=== PATIENT | female | born 1975 | race African-American/Black ===

== ENCOUNTER 2022-01-13 23:53 | Observation (INO) | payer OTHER, SELFPAY ==
--- NOTE | 2022-01-13 23:48 | ECG_ITS ---
APPROVED REPORT Exam: Resting ECG HR:86 bpm ECG Measurements Heart Rate 86 AXES UT 167 P 70 QRSd 89 QRS 27 QT 346 T 59 QTc 390 Conclusion SINUS RHYTHM NORMAL ECG UNCONFIRMED REPORT Electronically signed by : Jared Hahn MD 01/14/2022 21:23:47
[2022-01-14 00:03] VITALS: BP 167/87; PULSE 82; RESP 16; TEMP 36.6; O2SAT 99; BMI 28.3
[2022-01-14 00:08] LABS: Coronavirus 19, PCR Not Detected (NotDetected); Influenza A, PCR Not Detected (NotDetected); Influenza B, PCR Not Detected (NotDetected)
--- NOTE | 2022-01-14 00:11 | XR_ITS ---
PROCEDURE INFORMATION: Exam: XR Chest Exam date and time: 01/14/2022 12:10 AM Age: 46 years old Clinical indication: Sternal or substernal pain; Additional info: Chest pain for a few weeks, worsening tonight TECHNIQUE: Imaging protocol: Radiologic exam of the chest. Views: 2 views. COMPARISON: No relevant prior studies available. FINDINGS: Lungs: Unremarkable. No consolidation. Pleural spaces: Unremarkable. No pleural effusion. No pneumothorax. Heart/Mediastinum: Unremarkable. No cardiomegaly. Bones/joints: Unremarkable. IMPRESSION: No acute findings.
[2022-01-14 00:12] LABS: Microscopic, Urine URINE MICROSCOPIC (MICROSCOPIC)
[2022-01-14 00:16] LABS: Appearance,Urine CLEAR (Clear); Bilirubin,Urine Negative (Negative); Blood, Urine Negative (Negative); Color,Urine YELLOW (Yellow); Glucose,Urine (UA) Negative (Negative); Ketones,Urine Negative (Negative); Leukocyte Esterase,Urine Negative (Negative); Nitrate,Urine Negative (Negative); Protein,Urine Negative (Negative); Specific Gravity, Urine <= 1.005 (1.005-1.030); Urobilinogen,Urine 0.2 EU/dl (0.2)
[2022-01-14 00:27] LABS: Bacteria,Urine Trace /lpf
[2022-01-14 00:28] LABS: Basophils % 0.3 % (0.1-2.0); Eosinophils # 0.1 K/mm3 (0.0-0.4); Eosinophils % 1.6 % (0.1-12.0); Hematocrit 37.6 % (37.0-47.0); Hemoglobin 11.4 g/dL (12.2-16.2); Lymphocytes # 1.8 K/mm3 (0.7-4.5); Lymphocytes % 31.6 % (10-50); Mean Corpuscular HGB Conc 30.2 g/dL (31.8-35.4); Mean Corpuscular Hemoglobin 26.4 pg (27.0-31.2); Mean Corpuscular Volume 87.4 fl (81-99); Mean Platelet Volume 8.6 fl (7.4-10.4); Monocytes # 0.4 K/mm3 (0.1-1.0); Monocytes % 6.5 % (1.7-9.3); Neutrophils # 3.4 K/mm3 (1.8-7.8); Platelet Count 221 K/mm3 (142-424); Red Blood Count 4.31 M/mm3 (4.20-5.40); Red Cell Distribution Width 14.2 % (11.5-17.5); White Blood Count 5.7 K/mm3 (4.8-10.8)
[2022-01-14 00:32] LABS: Amylase 113 U/L (30-110); Anion Gap 10.6 mEq/L (5-15); Blood Urea Nitrogen 7 mg/dl (7-17); Calcium 9.1 mg/dl (8.4-10.2); Carbon Dioxide 28 mmol/L (22.0-30.0); Chloride 101 mmol/L (98-107); Creatinine Clearance Estimated 121 mL/min (50-200); Estimated Glomerular Filt Rate 90 ml/min (>60); GFR (African American) 109 ML/MIN (>60); Glucose 101 mg/dl (74-100); Lipase 90 U/L (23-300); Magnesium 1.7 mg/dl (1.6-2.3); Potassium 3.6 mmoL/L (3.5-5.1); Sodium 136 mmol/L (136-145)
[2022-01-14 00:37] LABS: C-Reactive Protein 22.7 mg/L (0-4)
[2022-01-14 00:51] LABS: Procalcitonin 0.045 ng/mL (0.0-2.0)
[2022-01-14 00:59] LABS: Troponin I < 0.01 ng/ml (0.00-0.034)
--- NOTE | 2022-01-14 00:59 | HMH.EDCP ---
ED Disposition Clinical Impression: Unstable angina pectoris Disposition: Admitted as Observation Condition on Discharge: Fair - Critical Care Critical Care Time: No Attestation: On 01/13/22, the high probability of a clinically significant, sudden or life threatening deterioration of the following system(s) required my full and direct attention, intervention and personal management. The time I documented below is in addition to time spent performing reported procedures but includes the following listed in this critical care notation. Medical Decision Making - Medical Records Medical records reviewed: Yes: I reviewed the patient's medical records. - Ganesh Inquiry Pt receiving controlled substance: No Vital Signs: 01/14/22 00:03 01/14/22 02:04 Temperature 98 F 98 F Temperature Source Oral Oral Pulse Rate 78 Pulse Rate [Apical] 82 Respiratory Rate 16 16 Blood Pressure 155/70 H Blood Pressure [Right Arm] 167/87 H Blood Pressure Mean [Right Arm] 113 Blood Pressure Source Automatic Cuff Blood Pressure Source [Right Arm] Automatic Cuff Blood Pressure Position Sitting Blood Pressure Position [Right Arm] Sitting 02 Sat by Pulse Oximetry 99 Oxygen Delivery Method Room Air Room Air - Lab Data Lab results reviewed: Yes: I reviewed the patient's lab results. Lab Results 01/14/22 00:01: WBC 5.7, RBC 4.31, Hgb 11.4 L, Hct 37.6, MCV 87.4, MCH 26.4 L, MCHC 30.2 L, RDW 14.2, Plt Count 221, MPV 8.6, Neut % (Auto) 60.0, Lymph % (Auto) 31.6, [place] % (Auto) 6.5, Eos % (Auto) 1.6, Baso % (Auto) 0.3, Neut # (Auto) 3.4, Lymph # (Auto) 1.8, [place] # (Auto) 0.4, Eos # (Auto) 0.1, Baso # (Auto) 0.0, ESR 49 H 01/14/22 00:01: Sodium 136, Potassium 3.6, Chloride 101, Carbon Dioxide 28, Anion Gap 10.6, BUN 7, Creatinine 0.70, Estimated Creat Clear 121, Estimated GFR 90, Est GFR ( Amer) 109, Glucose 101 H, Calcium 9.1, Magnesium 1.7, Troponin I < 0.01, C-Reactive Protein 22.7 H, Amylase 113 H, Lipase 90, Procalcitonin 0.045 01/14/22 00:03: SARS-CoV-2 (PCR) Not detected, Influenza A Untype (PCR) Not detected, Influenza Type B (PCR) Not detected 01/14/22 00:08: Urine Color Yellow, Urine Appearance Clear, Urine pH 6.0, Ur Specific [place] <= 1.005, Urine Protein Negative, Urine Glucose (UA) Negative, Urine Ketones Negative, Urine Blood Negative, Urine Nitrate Negative, Urine Bilirubin Negative, Urine Urobilinogen 0.2, Ur Leukocyte Esterase Negative, Urine RBC None, Urine WBC None, Ur Squamous Epith Cells 3-5, Urine Bacteria Trace Result diagrams: 01/14/22 00:01 01/14/22 00:01 Orders (Tests/Meds): ED MEDICATIONS Generic Name Dose Route Start Last Admin Trade Name Fresheila PRN Reason Stop Dose Admin Sodium Chloride 1,000 mls @ 999 mls/hr 01/14/22 00:15 01/14/22 00:20 Sod Chlor 0.9% 1000ml Bag IV 01/14/22 01:15 999 mls/hr .Q1H1M MISTI Administration Sodium Chloride 8 ml 01/14/22 00:14 Sodium Chloride 0.9% 10ml Vial IV 02/13/22 00:13 NEEDED PRN dilute pepcid Discontinued Medications Generic Name Dose Route Start Last Admin Trade Name Fresheila PRN Reason Stop Dose Admin Aspirin 324 mg 01/14/22 00:11 01/14/22 00:20 Aspirin 81mg Chewable Tablet PO 01/14/22 00:12 324 mg ONCE ONE Administration Famotidine 20 mg 01/14/22 00:11 01/14/22 00:20 Famotidine 20mg/2ml Vial IV 01/14/22 00:12 20 mg ONCE ONE Administration Metoclopramide HCl 10 mg 01/14/22 00:14 01/14/22 00:22 Metoclopramide Hcl 10mg/2ml Vial IVP 01/14/22 00:15 10 mg ONCE ONE Administration Nitroglycerin 1 gm 01/14/22 01:22 01/14/22 01:24 Nitroglycerin 1 Gm Ointment TD 01/14/22 01:23 1 gm ONCE ONE Administration Ondansetron HCl 4 mg 01/14/22 00:11 01/14/22 00:20 Ondansetron 4mg/2ml Vial IV 01/14/22 00:12 4 mg ONCE ONE Administration ORDERS Category Date Time Status Troponin I Q3H Lab 01/14/22 03:15 Ordered Troponin I Q3H Lab 01/14/22 06:15 Ordered - Radiology Data
--- NOTE | 2022-01-14 01:15 | PC.NURSE ---
PATIENT ADMITTED OBSERVATION TO [address] ERICK[address] LIU WITH DX OF CHEST PAIN.
[2022-01-14 01:23] LABS: Erythrocyte Sedimentation Rate 49 mm/hr (0-20)
[2022-01-14 02:04] VITALS: BP 155/70; PULSE 78; RESP 16; TEMP 36.6; O2SAT 99
[2022-01-14 02:30] VITALS: BP 142/73; PULSE 84; RESP 18; TEMP 36.8; O2SAT 98
[2022-01-14 04:00] VITALS: BP 135/66; PULSE 74; RESP 18; TEMP 36.7; O2SAT 99
[2022-01-14 04:44] LABS: Troponin I < 0.01 ng/ml (0.00-0.034)
--- NOTE | 2022-01-14 07:05 | PC.NURSE ---
REPORT RECEIVED FROM Narciso HAQUE RN
--- NOTE | 2022-01-14 07:46 | P.CONPHA_ITS ---
[facility] Pharmacy VTE Monitoring - Patient Demographics Admission date: 01/14/22 Report Date: 01/14/22 Time: 07:46 Allergies/Adverse Reactions: Patient Allergies Penicillins Allergy (Verified 01/14/22 00:10) Height: 1.65 m Weight: 77.111 kg Patient Problems: Current Active Problems Unstable angina pectoris (Acute) - VTE Risk Labs: VTE Related Lab Results Hgb 11.4 g/dL (12.2-16.2) L 01/14/22 00:01 Hct 37.6 % (37.0-47.0) 01/14/22 00:01 Plt Count 221 K/mm3 (142-424) 01/14/22 00:01 BUN 7 mg/dl (7-17) 01/14/22 00:01 Creatinine 0.70 mg/dl (0.52-1.04) 01/14/22 00:01 Estimated Creat Clear 121 mL/min (50-200) 01/14/22 00:01 VTE Score: 3 VTE Risk Level: Low Risk - Prophylaxis VTE Prophylaxis Ordered?: Yes Types of VTE Prophylaxis: TEDS Knee High Location of Applied Device: Bilateral Lower Extremeties
[2022-01-14 07:52] LABS: Basophils % 0.6 % (0.1-2.0); Eosinophils # 0.1 K/mm3 (0.0-0.4); Eosinophils % 1.7 % (0.1-12.0); Hematocrit 34.5 % (37.0-47.0); Hemoglobin 10.5 g/dL (12.2-16.2); Lymphocytes # 1.2 K/mm3 (0.7-4.5); Mean Corpuscular HGB Conc 30.5 g/dL (31.8-35.4); Mean Corpuscular Hemoglobin 27.1 pg (27.0-31.2); Mean Corpuscular Volume 88.8 fl (81-99); Monocytes # 0.3 K/mm3 (0.1-1.0); Neutrophils # 2.3 K/mm3 (1.8-7.8); Neutrophils % 59.6 % (37.0-80.0); Platelet Count 189 K/mm3 (142-424); Red Blood Count 3.89 M/mm3 (4.20-5.40); Red Cell Distribution Width 14.4 % (11.5-17.5); White Blood Count 3.9 K/mm3 (4.8-10.8)
[2022-01-14 08:02] LABS: Chloride 106 mmol/L (98-107); Potassium 3.6 mmoL/L (3.5-5.1)
[2022-01-14 08:05] LABS: Carbon Dioxide 29 mmol/L (22.0-30.0); Cholesterol 108 mg/dl (140-200); Phosphorous 3.3 mg/dl (2.5-4.5); Triglycerides 46 mg/dl (30-150); VLDL Cholesterol 9 mg/dL (0-40)
[2022-01-14 08:06] LABS: Chol/HDL Ratio 3.2 (1-3.5); HDL Cholesterol 34 mg/dl (40-60); Magnesium 1.8 mg/dl (1.6-2.3)
[2022-01-14 08:10] LABS: Blood Urea Nitrogen 8 mg/dl (7-17); Creatinine Clearance Estimated 121 mL/min (50-200); Estimated Glomerular Filt Rate 90 ml/min (>60); GFR (African American) 109 ML/MIN (>60)
[2022-01-14 08:24] LABS: Calcium 7.8 mg/dl (8.4-10.2); Glucose 96 mg/dl (74-100)
[2022-01-14 08:25] LABS: Anion Gap 6.6 mEq/L (5-15); Sodium 138 mmol/L (136-145)
[2022-01-14 08:51] LABS: Troponin I < 0.01 ng/ml (0.00-0.034)
--- NOTE | 2022-01-14 08:53 | PC.NURSE ---
DR. Gibbs at bedside.
[2022-01-14 09:00] VITALS: BP 120/68; PULSE 73; RESP 18; TEMP 36.7; O2SAT 98
--- NOTE | 2022-01-14 09:00 | PC.NURSE ---
ASSESSMENT COMPLETED. NO CURRENT NEEDS VOICED. LUNGS CTA AND BOWELS ACTIVE X4. REPORTS NO CHEST PAIN AT THIS TIME. PULSES 2+ AND NO EDEMA. SKIN ASSESSMENT COMPLETED- NO OPEN AREAS. IV INFUSING. NO NEEDS VOICED.
[2022-01-14 12:00] VITALS: BP 122/57; PULSE 66; RESP 18; O2SAT 97
--- NOTE | 2022-01-14 13:57 | HMH.CNCARD ---
History of Present Illness Consult date: 01/14/22 Requesting physician: Paul Gibbs Consult reason: chest pain Chief complaint: burning in chest History of present illness: This is a 46-year-old -[place] female who presented to the emergency department with complaints of burning in her chest. The patient states that this started yesterday morning after eating breakfast. She states that she ate some dry toast and then felt as if the food got stuck in the central aspect of her chest. She states that this was burning and felt like acid reflux. She states that she has had some issues with acid reflux in the past and she just felt like her omeprazole was no longer working for her but she had never experienced this sensation of something feeling stuck in her chest. This was a moderate in intensity. She states that this did not radiate. She states that nothing really helped with her chest pain. The patient states that she called her primary care provider and she was not able to be evaluated until . They recommended she go to the emergency department if her symptoms worsened. The chest pain from yesterday morning persisted through the evening so the patient decided to come into the emergency department. She states that after she was given multiple medications in the emergency department the chest pain finally resolved slowly over time late last night. The patient denies any history of smoking. She denies a family history of coronary artery disease and she even called her grandmother to confirm this today. She denies any shortness of breath or nausea and vomiting associated with the chest pain. She denies any diaphoresis. She denies any fever, chills, nausea, vomiting, diarrhea, PND or orthopnea. [facility] History I have reviewed the patient's past medical history: Yes Medical History: Reports:: Gastroesophageal Reflux Disease(GERD) Denies:: Diabetes Mellitus Type 1, Diabetes Mellitus Type 2 *Have you ever received a pneumonia vaccine?: Yes *Have you received a flu vaccine this season?: Yes Comment:: Lupus Other Surgeries: Yes: Cardiac Catheterization, Colonoscopy, Hysterectomy-Partial, Tubal Ligation - *Social History Last grade of school completed: High school graduate Smoking Status: Never smoker Alcohol Intake: never *Occupational Status:: employed Household Members: children *Travel in the last 8 weeks: None Family Hx:: No significant family history Meds Home Medications Medication Instructions Recorded Confirmed Type Belimumab [Benlysta] 200 mg SQ WEEKLY 01/14/22 01/14/22 History Desonide 0 gm TP DAILY 01/14/22 01/14/22 History Duloxetine HCl [Cymbalta] 60 mg PO DAILY 01/14/22 01/14/22 History Fluocinonide [Lidex 0.05% cream 0 gm TD BID 01/14/22 01/14/22 History 15gm tube] Gabapentin [Gabapentin 100mg Cap] 100 mg PO TID 01/14/22 01/14/22 History Hydroxychloroquine Sulfate 200 mg PO BID 01/14/22 01/14/22 History [Plaquenil 200mg tablet] Lubiprostone 24 mcg PO BID 01/14/22 01/14/22 History Omeprazole [Omeprazole 20mg Tab] 20 mg PO DAILY 01/14/22 01/14/22 History Oxybutynin Chloride [Oxybutynin 10 mg PO DAILY 01/14/22 01/14/22 History Chloride ER] Zolpidem Tartrate [Ambien 5mg 5 mg PO HS 01/14/22 01/14/22 History tablet] Allergies Allergy/AdvReac Type Severity Reaction Status Date / Time Penicillins Allergy Verified 01/14/22 00:10 Exam Vital signs and Labs for Last 24 Hours: Temp Pulse Resp BP Pulse Ox 98.1 F 66 18 122/57 L 97 01/14/22 09:00 01/14/22 12:00 01/14/22 12:00 01/14/22 12:00 01/14/22 12:00 Laboratory Results - last 24 hr 01/14/22 00:01: WBC 5.7, RBC 4.31, Hgb 11.4 L, Hct 37.6, MCV 87.4, MCH 26.4 L, MCHC 30.2 L, RDW 14.2, Plt Count 221, MPV 8.6, Neut % (Auto) 60.0, Lymph % (Auto) 31.6, [place] % (Auto) 6.5, Eos % (Auto) 1.6, Baso % (Auto) 0.3, Neut # (Auto) 3.4, Lymph # (Auto) 1.8, [place] # (Auto) 0.4, Eos # (Auto) 0.1, Baso # (Auto) 0.0, ESR 49 H 01/14/22 0
--- NOTE | 2022-01-14 14:33 | HMH.HPDC ---
General - General Admission date:: 01/14/22 Discharge date: 01/14/22 *Admission Date: 01/14/22 *Chief complaint: chest pain *History of present illness: this patient presented to [facility] ed last pm with onset of a different kind of chest pain - pt was seen and admitted for cardiac eval and treatment -pt states that she has been having substernal chest pain for the prior two weeks that is intermittent in nature and appears to be worse after she eats. Pt states that she ate breakfast this morning and began to have chest pain at roughly 1230 this afternoon. Denies any cp radiation, nausea or vomiting progressive chest tightness over the last 2 days and will be admitted [facility] History I have reviewed the patient's past medical history: Yes Medical History: Reports:: Gastroesophageal Reflux Disease(GERD) Denies:: Diabetes Mellitus Type 1, Diabetes Mellitus Type 2 *Have you ever received a pneumonia vaccine?: Yes *Have you received a flu vaccine this season?: Yes Other Surgeries: Yes: Cardiac Catheterization, Colonoscopy, Hysterectomy-Partial, Tubal Ligation - *Social History Last grade of school completed: High school graduate Smoking Status: Never smoker Alcohol Intake: never *Occupational Status:: employed Household Members: children *Travel in the last 8 weeks: None Family Hx:: No significant family history Review of Systems - Review of Systems Review of systems:: pertinent systems reviewed and negative unless documented below - Constitutional Denies lack of energy - Eyes Denies change in vision - ENT Denies change in voice - *Cardiovascular Reports chest pain, Reports chest pain at rest - *Respiratory Denies cough - *Gastrointestinal Denies abdominal pain - *Genitourinary Denies difficulty urinating - *Musculoskeletal Denies joint pain - Integumentary/Breasts Denies rash - *Neurologic Denies abnormal hearing, Denies seizure-like activity - Psychiatric Denies anxiety - Endocrine Denies flushing, Denies heat intolerance Exam Vital signs and Labs for Last 24 Hours: Temp Pulse Resp BP Pulse Ox 98.1 F 66 18 122/57 L 97 01/14/22 09:00 01/14/22 12:00 01/14/22 12:00 01/14/22 12:00 01/14/22 12:00 Laboratory Results - last 24 hr 01/14/22 00:01: WBC 5.7, RBC 4.31, Hgb 11.4 L, Hct 37.6, MCV 87.4, MCH 26.4 L, MCHC 30.2 L, RDW 14.2, Plt Count 221, MPV 8.6, Neut % (Auto) 60.0, Lymph % (Auto) 31.6, [place] % (Auto) 6.5, Eos % (Auto) 1.6, Baso % (Auto) 0.3, Neut # (Auto) 3.4, Lymph # (Auto) 1.8, [place] # (Auto) 0.4, Eos # (Auto) 0.1, Baso # (Auto) 0.0, ESR 49 H 01/14/22 00:01: Sodium 136, Potassium 3.6, Chloride 101, Carbon Dioxide 28, Anion Gap 10.6, BUN 7, Creatinine 0.70, Estimated Creat Clear 121, Estimated GFR 90, Est GFR ( Amer) 109, Glucose 101 H, Calcium 9.1, Magnesium 1.7, Troponin I < 0.01, C-Reactive Protein 22.7 H, Amylase 113 H, Lipase 90, Procalcitonin 0.045 01/14/22 00:03: SARS-CoV-2 (PCR) Not detected, Influenza A Untype (PCR) Not detected, Influenza Type B (PCR) Not detected 01/14/22 00:08: Urine Color Yellow, Urine Appearance Clear, Urine pH 6.0, Ur Specific [place] <= 1.005, Urine Protein Negative, Urine Glucose (UA) Negative, Urine Ketones Negative, Urine Blood Negative, Urine Nitrate Negative, Urine Bilirubin Negative, Urine Urobilinogen 0.2, Ur Leukocyte Esterase Negative, Urine RBC None, Urine WBC None, Ur Squamous Epith Cells 3-5, Urine Bacteria Trace 01/14/22 03:20: Troponin I < 0.01 01/14/22 07:35: WBC 3.9 L D, RBC 3.89 L, Hgb 10.5 L, Hct 34.5 L, MCV 88.8, MCH 27.1, MCHC 30.5 L, RDW 14.4, Plt Count 189, MPV 9.0, Neut % (Auto) 59.6, Lymph % (Auto) 30.0, [place] % (Auto) 8.0, Eos % (Auto) 1.7, Baso % (Auto) 0.6, Neut # (Auto) 2.3, Lymph # (Auto) 1.2, [place] # (Auto) 0.3, Eos # (Auto) 0.1, Baso # (Auto) 0.0 01/14/22 07:35: Sodium 138, Potassium 3.6, Chloride 106, Carbon Dioxide 29, Anion Gap 6.6, BUN 8, Creatinine 0.70, Estimated Creat Clear 121, Estimated GFR 90, Est GFR ( Amer
[2022-01-15 13:48] LABS: Direct LDL Cholesterol 56 mg/dL (100-129)
--- NOTE | 2022-01-15 14:20 | CARE MANAGER ---
Contacted patient related discharge from the hospital. States she still has some pressure, but has stress test on Thursday. Denies questions or concerns. NAKITA Rutledge
== END 2022-01-14 15:45 | disposition home or self-care (01) ==
LOC: ER 01-14 00:11 → OB 01-14 02:32
PROVIDERS: Admitting Provider Emergency Medicine; Emergency Provider Emergency Medicine; PCP Nurse Practitioner Family; Visit Provider Family Medicine
DX: R07.9 Chest pain, unspecified (principal); K21.9 Gastro-esophageal reflux disease without esophagitis; M32.9 Systemic lupus erythematosus, unspecified
CPT/HCPCS: 36415; 71046; 80048; 80061; 81001; 82150; 83690; 83735; 84100; 84145; 84484; 85025; 85651; 86140; 93005; 93306; 99285; C9803; G0378; J2405; U0003; U0005

== ENCOUNTER → 2022-01-17 06:14 | Outpatient (CLI) | payer OTHER, SELFPAY | PROVIDERS: PCP Nurse Practitioner Family; Visit Provider Nurse Practitioner Family | DX: R07.9 Chest pain, unspecified (principal) | CPT/HCPCS: 78452; 93017; A9502 ==

== ENCOUNTER 2022-01-28 10:35 | Inpatient (IN) | payer OTHER, SELFPAY ==
[2022-01-28] VITALS (22 sets, daily range): BP systolic 94–186; BP diastolic 49–93; PULSE 93–112; RESP 16–24; TEMP 36.7–37; O2SAT 90–100; BMI 28.8; BMI 32.1
--- NOTE | 2022-01-28 | IR_ITS ---
APPROVED REPORT Patient Location: [facility] Helper: CECILIO Marcum RT (R) PROCEDURES Pericardiocentesis Placement of pericardial pigtail catheter into the pericardial space INDICATION Cardiac tamponade, Pericardial effusion Informed consent was obtained prior to the procedure. COMPLICATIONS None Estimated Blood Loss: Less than 10 mls TECHNIQUE Patient presented to the cardiology clinic with acute dyspnea where an EKG demonstrated ST elevation in all leads combined with electrical alternans suggesting both pericarditis with large pericardial effusion. Because of patient's dyspnea she was taken immediately to the emergency department where a bedside echocardiogram demonstrated both systolic and diastolic RV collapse. Patient was brought emergently to the [facility] where she was sedated in the thoracic abdominal area sterilely prepped. 1% lidocaine was used to anesthetize the subxiphoid area and a large needle was used to cannulate the pericardial space. A wire was then placed into the pericardial space and the tract was dilated with a dilator sheath. The pigtail catheter was then advanced and confirmed under fluoroscopic guidance. 750 cc of serosanguineous fluid was manually removed. At the end of the procedure the pigtail catheter was sewn into place and attached to a gravity fed bag for pericardial drainage. Patient was taken to the postop holding area in stable condition IMPRESSION Cardiac tamponade secondary to the large pericardial effusion Successful therapeutic pericardiocentesis alleviating the cardiac tamponade Successful placement of pigtail catheter into the pericardial space PLAN 1. Send pericardial fluid for cytology and chemistry evaluation 2. Methylprednisolone 250 mg IV every 6 x3 days 3. Echocardiogram tomorrow morning 4. Continue with supportive care while maintaining the pericardial pigtail for at least the next 48 hours Electronically signed by : Chandrakant Dewitt MD 01/28/2022 13:18:01
--- NOTE | 2022-01-28 | CA_ITS ---
APPROVED REPORT EXAM: Comprehensive 2D, Doppler, and color-flow Echocardiogram Escort Car Driver: Shannon Adams RT(R) Ht: 5 ft 5 in Wt: 174lbs BSA: 1.86 BP: 106/75 mmHg Indications: CP, LUPUS, Pericardial effusion Echo Enhancing Agent Comments: 750cc evacuated from pericardial space 2D Dimensions IVSd 0.80 cm LVEF (Visual) 51.20 % PWd 0.84 cm LVDd 3.65 cm LVDs 2.72 cm Left Ventricle Left atrium is normal size, left ventricle normal size, estimated ejection fraction 55 to 60% with no regional wall motion abnormality. Right Ventricle Right atrium is normal size, right ventricle has intermittent buckling due to large pericardial effusion suggestive of tamponade. Aortic Valve Aortic valve is minimally thickened and fibrosed there is no aortic stenosis or aortic insufficiency. Mitral Valve Mitral valve is grossly normal there is trace mitral regurgitation. Tricuspid Valve Tricuspid valve grossly normal, there is trace tricuspid regurgitation, tricuspid regurgitation jet velocity is inadequate for calculation of the right ventricular pressure. Pulmonic Valve Pulmonic valve is poorly visualized. Great Vessels Aortic root is normal size. Inferior vena cava is dilated without significant inspiratory collapse. Pericardium There is large circumferential pericardial effusion noted with Doppler evidence of tamponade physiology. Subsequently patient underwent pericardial effusion drainage which subsequently shows normal right ventricular size and function, at the end of the echocardiogram there is small pericardial effusion. Conclusion 1. Large pericardial effusion with tamponade physiology, subsequently patient underwent pericardiocentesis with resolution of tamponade physiology by echocardiogram, at the end of the procedure with a small pericardial effusion left. 2. Normal left ventricular size with preserved left ventricular systolic function. 3. No significant valvular disease identified. Electronically signed by : Jefferson Le MD 01/28/2022 19:25:02
--- NOTE | 2022-01-28 10:45 | PC.NURSE ---
aaron sharif called to come back and review 2nd ekg, she is calling dr ortiz
--- NOTE | 2022-01-28 10:47 | PC.NURSE ---
V/O PER CHERELLE SALAZAR NP VIA DR. ANDERSON. STAT ECHO NOW, TO MANAGING [facility]OK[facility] UNLESS PT HAS PERICARDITIS
--- NOTE | 2022-01-28 10:47 | PC.NURSE ---
Ольга called for stat echo
--- NOTE | 2022-01-28 10:48 | PC.NURSE ---
Addendum entered by Lorraine Champion, EMT 01/28/22 10:48: echo called at 1032 Original Note: aaron sharif advised to get a stst evcho on pt
--- NOTE | 2022-01-28 10:49 | PC.NURSE ---
PT ON 3L/NC ROOM AIR SAT 90%, NOW 98%
--- NOTE | 2022-01-28 11:03 | PC.NURSE ---
ORDERS RECEIVED TO SIGN CONSENT AND TAKE PT TO SOFTWARE VALIDATION TECHNICIAN
--- NOTE | 2022-01-28 11:04 | ECG_ITS ---
APPROVED REPORT Exam: Resting ECG HR:111 bpm ECG Measurements Heart Rate 111 AXES ND 148 P 2 QRSd 76 QRS 17 QT 332 T 19 QTc 397 Conclusion SINUS TACHYCARDIA MARKED ST ELEVATION, CONSIDER INFERIOR INJURY [MARKED ST ELEVATION W/O NORMALLY INFLECTED T-WAVE IN II/aVF] MARKED ST ELEVATION, CONSIDER ANTEROLATERAL INJURY [MARKED ST ELEVATION W/O NORMALLY INFLECTED T-WAVE IN V3-V6] ACUTE MD UNCONFIRMED REPORT Electronically signed by : Jared Hahn MD 01/28/2022 21:07:59
--- NOTE | 2022-01-28 11:04 | PC.NURSE ---
7884 ED MD AT BEDSIDE TO HEART
--- NOTE | 2022-01-28 11:04 | PC.NURSE ---
1100 ECHO AT BEDSIDE
--- NOTE | 2022-01-28 11:04 | PC.NURSE ---
manager labor relations called advised to get pt consent and send to microbiology lab manager
--- NOTE | 2022-01-28 11:04 | PC.NURSE ---
1100 DR. ANDERSON NOTIFIED OF FINDINGS
--- NOTE | 2022-01-28 11:07 | PC.NURSE ---
CONSENT SIGNED AT THIS TIME
--- NOTE | 2022-01-28 11:08 | PC.NURSE ---
UPON ARRIVAL TO ER PT PLACED ON MONITOR WITH ELEVATION IN LEAD 3 , EKG DONE AND GIVEN TO ER AND SENT TO [facility] O2 SATS WERE 90 O2 AT 3 LPM O2 SAT UP 99% , FRIEND AT BS
--- NOTE | 2022-01-28 11:12 | PC.NURSE ---
PT BEING TRANSPORTED STRAIGHT UP TO CASE MANAGEMENT SPECIALIST PER [facility] FOR CARDIAC TAMPONADE
--- NOTE | 2022-01-28 11:16 | PC.NURSE ---
1110 PT TO [facility] VIA [facility]. REPORT GIVEN TO Jerod HENRIQUEZ RN AND Zahida MARTINEZ RN
[2022-01-28 11:20] LABS: Anion Gap 15.8 mEq/L (5-15); Blood Urea Nitrogen 34 mg/dl (7-17); Calcium 8.6 mg/dl (8.4-10.2); Carbon Dioxide 20 mmol/L (22.0-30.0); Chloride 89 mmol/L (98-107); Creatinine Clearance Estimated 50 mL/min (50-200); Estimated Glomerular Filt Rate 28 ml/min (>60); GFR (African American) 34 ML/MIN (>60); Glucose 109 mg/dl (74-100); Potassium 3.8 mmoL/L (3.5-5.1); Sodium 121 mmol/L (136-145)
[2022-01-28 11:23] LABS: Basophils % 0.2 % (0.1-2.0); Eosinophils % 0.2 % (0.1-12.0); Hematocrit 31.9 % (37.0-47.0); Hemoglobin 10.4 g/dL (12.2-16.2); Lymphocytes # 1.2 K/mm3 (0.7-4.5); Lymphocytes % 10.5 % (10-50); Mean Corpuscular HGB Conc 32.6 g/dL (31.8-35.4); Mean Corpuscular Hemoglobin 26.7 pg (27.0-31.2); Mean Corpuscular Volume 81.9 fl (81-99); Mean Platelet Volume 8.4 fl (7.4-10.4); Monocytes # 0.5 K/mm3 (0.1-1.0); Monocytes % 4.5 % (1.7-9.3); Neutrophils # 9.8 K/mm3 (1.8-7.8); Neutrophils % 84.6 % (37.0-80.0); Platelet Count 334 K/mm3 (142-424); Red Cell Distribution Width 13.7 % (11.5-17.5); White Blood Count 11.6 K/mm3 (4.8-10.8)
[2022-01-28 11:38] LABS: Troponin I < 0.01 ng/ml (0.00-0.034)
[2022-01-28 11:55] LABS: Coronavirus 19, PCR Not Detected (NotDetected); Influenza A, PCR Not Detected (NotDetected); Influenza B, PCR Not Detected (NotDetected)
--- NOTE | 2022-01-28 12:10 | PC.NURSE ---
Dr Crocker speaking to dr Jackson
--- NOTE | 2022-01-28 12:13 | PC.NURSE ---
1210 ED MD SPEAKING WITH DR. LIU FOR ADMISSION
--- NOTE | 2022-01-28 12:43 | HMH.EDCP ---
Discharge Plan Disposition Patient Disposition: Admitted As Inpatient Condition: Fair Clinical Impressions Clinical Impression: Cardiac tamponade Discharge ED Provider: Dewayne Crocker Chest Pain HPI General Chief Complaint: Chest Pain Stated Complaint: pericarditis Time Seen by Provider: 01/28/22 10:40 Mode of Arrival: Wheelchair Limitations: No Limitations Description of Symptoms (Recalled from ER Triage Doc. by RN): PT FROM DR. REYES OFFICE FOR FURTHER EVALUATION OF INCREASED SHORTNESS OF BREATH, CHEST PRESSURE AND BACK PAIN History of Present Illness HPI narrative: Patient is a 46-year-old female with a past medical history of lupus who presents from cardiology clinic with concern for increasing shortness of breath, chest pressure, back pain. They did an EKG in the office and there was concern for diffuse ST elevations. Patient says that this has been worsening over the last couple of days. Denies any recent illnesses. She says that her symptoms are worse if she lies backward. She rates it as an 8/10. Related Data Home Medications Medication Instructions Recorded Confirmed belimumab 200 mg/mL subcutaneous 200 mg SQ WEEKLY immunosuppressive 01/14/22 01/28/22 syringe duloxetine 60 mg capsule,delayed 60 mg PO DAILY nerve pain 01/14/22 01/28/22 release gabapentin 100 mg capsule 100 mg PO TID nerve pain 01/14/22 01/28/22 hydroxychloroquine 200 mg tablet 200 mg PO BID immunosuppressive 01/14/22 01/28/22 lubiprostone 24 mcg capsule 24 mcg PO BID IBS 01/14/22 01/28/22 oxybutynin chloride 10 mg 10 mg PO DAILY BLADDER 01/28/22 01/28/22 tablet,extended release 24 hr pantoprazole 40 mg tablet,delayed 40 mg PO DAILY GERD 01/28/22 01/28/22 release (Protonix) Allergies Allergy/AdvReac Type Severity Reaction Status Date / Time Penicillins Allergy Verified 01/28/22 09:59 [facility] Medical History (Updated 01/28/22 @ 12:48 by Dewayne Crocker MD) Acid reflux Acute pericarditis Chest pain Lupus (systemic lupus erythematosus) SOB (shortness of breath) on exertion Social History Smoking Status: Never smoker alcohol intake: never current occupational status: employed Travel in the last 8 weeks: None household members: children ROS Obtained: Yes All systems reviewed & no additional complaints except as documented A 14 point review of system was performed and negative except per HPI Physical Exam General General appearance: alert and in no apparent distress Head Head exam: atraumatic, normocephalic and normal inspection Eye Eye exam: Present normal appearance, PERRL and EOMI ENT ENT exam: Present normal exam, normal oropharynx, mucous membranes moist, TM's normal bilaterally and normal external ear exam Neck Neck exam: Present normal inspection, full ROM and trachea midline; Absent meningismus or lymphadenopathy Chest Chest inspection: Present normal inspection and symmetric chest wall rise; Absent tenderness Respiratory Respiratory exam: Present normal lung sounds bilaterally; Absent respiratory distress Cardiovascular Cardiovascular exam: Present regular rate and normal rhythm; Absent normal heart sounds (Distant muffled heart sounds) or JVD Abdominal Exam Abdominal exam: Present soft and normal bowel sounds; Absent distention, tenderness or guarding Extremities Exam Extremities exam: Present normal inspection, full ROM and normal capillary refill; Absent calf tenderness Back Exam Back exam: Present normal inspection; Absent tenderness Neurological Exam Neurological exam: Present alert and oriented X3 Psychiatric Psychiatric exam: Present normal affect and normal mood Skin Skin exam: Present warm, dry, intact and normal color Lymphatic Lymphatic Findings: no adenopathy Medical Decision Making Medical Records Medical records reviewed: Yes I reviewed the patient's medical records. Ganesh Guerra Pt receiving controlled s
--- NOTE | 2022-01-28 12:49 | PC.NURSE ---
pt arrived to the floor at this time
--- NOTE | 2022-01-28 12:49 | EXP.CARD.PN ---
Subjective Subjective Date: 01/28/22 Time: 12:49 Principal diagnosis: Pericardial effusion/tamponade Interval history: Pt was seen in office today and sent to ER for urgent echo. Office note below: Pt here for hospital fu. Pt admitted with CP. ruled out for an MO. started on PPI. Was set up for outpatient stress. here for fu. GXT myoview shows no ischemia. DTS +7. Prelim echo from 01.14.22 shows EF 60% with no significant WMA. Has had cp & pressure at rest, 3 per day SOB with activity & when laying down. she has been having worsening SOB the last few weeks, but yesterday and today it has been profound. she is unable to tlak in complete sentences due to SOB. she is in a wheelchair today which is unusual because she is so short on breath. she is having pain in the left rib cage area going around to her back. this is a sharp, pressure sensation. She looks acutely ill in clinic and does appear to be sob and tachypneic. BP is on the lower side. LDL goal is < 100. LDL is 56 12/2021. EKG is ST with a rate of 113 and acute pericarditis. EKG is showing electrical alternans, concerning for an effusion/tamponade. Dr Dewitt contacted due to EKG change/acute pericarditis. Dr Dewitt wants pt take to the ED with stat Echo to evaluate for effusion/tamponade. If no pericardial effusion/tamponade, will take pt to the [facility] today. The patient has been educated on the risks and benefits of proceeding with LHC with right radial access. The patient has verbalized understanding and is agreeable in proceeding with the procedure. stat labs including troponin Pt will need a BB started after echo This is likely Lupus induced pericarditis. she would likely benefit from colchicine but want stat echo first. Discussed this with ED physician as well. RTC in 1 week post hospital stay. Exam Data for Last 24 hours Vital signs and Labs for Last 24 Hours: Temp Pulse Resp BP Pulse Ox 98.0 F 97 H 16 126/78 95 01/28/22 11:33 01/28/22 12:42 01/28/22 12:42 01/28/22 12:42 01/28/22 12:42 Laboratory Results - last 24 hr 01/28/22 10:45: WBC 11.6 H, RBC 3.90 L, Hgb 10.4 L, Hct 31.9 L, MCV 81.9, MCH 26.7 L, MCHC 32.6, RDW 13.7, Plt Count 334, MPV 8.4, Neut % (Auto) 84.6 H, Lymph % (Auto) 10.5, [place] % (Auto) 4.5, Eos % (Auto) 0.2, Baso % (Auto) 0.2, Neut # (Auto) 9.8 H, Lymph # (Auto) 1.2, [place] # (Auto) 0.5, Eos # (Auto) 0.0, Baso # (Auto) 0.0 01/28/22 10:45: Sodium 121 L, Potassium 3.8, Chloride 89 L, Carbon Dioxide 20 L, Anion Gap 15.8 H, BUN 34 H, Creatinine 1.90 H, Estimated Creat Clear 50, Estimated GFR 28 L, Est GFR ( Amer) 34 L, Glucose 109 H, Calcium 8.6, Troponin I < 0.01 01/28/22 10:45: SARS-CoV-2 (PCR) Not detected, Influenza A Untype (PCR) Not detected, Influenza Type B (PCR) Not detected I & O for Last 24 hours: Intake & Output 01/26/22 01/27/22 01/28/22 01/29/22 11:59 11:59 11:59 11:59 Weight 190 lb Constitutional Constitutional: mild distress Comments: dyspnea Routine Chest/Breast/Axilla Exam Comments: pigtail drain in place *Routine Respiratory Exam Respiratory: Present CTA bilaterally *Routine Cardiovascular Exam Cardiovascular: Present RRR, Normal S1 and Normal S2; Absent murmur, gallop, rubs or click *Routine Neurological Exam Neurological: Present alert and oriented X3 Progress Note: A&P Assessment and plan (1) Acute pericarditis: Status: Acute (2) Cardiac tamponade: Status: Acute (3) Chest pain: Status: Acute (4) Acid reflux: Status: Acute (5) Lupus (systemic lupus erythematosus): Status: Acute (6) SOB (shortness of breath) on exertion: Status: Acute Assessment and Plan Assessment and Plan for All Diagnoses:: Plan: 1. Shortness of breath related to pericardial effusion, underwent pericardiocentesis today. Removed approximately 750 mL of fluid. Specimen sent to lab. Results pending. Simon drainage bag each shift with total drained. Will start IV methylprednisolone 1
[2022-01-28 13:32] LABS: C-Reactive Protein 288.4 mg/L (0-4)
[2022-01-28 14:03] LABS: Source, Body Fld. Pericardial Fluid
[2022-01-28 14:06] LABS: Volume,Body Fld. 550 mL
[2022-01-28 14:07] LABS: RBC,Body Fluid 20 cells/uL (< 10 X 10^3); TNC,Body Fluid 5600 cells/uL (< 1000)
[2022-01-28 15:14] LABS: Mononuclear WBCs,Body Fluid 20 %; Polynuclear WBC,Body Fluid 80 %
--- NOTE | 2022-01-28 15:50 | P.CONPHA_ITS ---
[facility] Pharmacy VTE Monitoring Patient Demographics Admission date: 01/28/22 Report Date: 01/28/22 Time: 15:50 Patient Allergies Penicillins Allergy (Verified 01/28/22 09:59) Height: 1.63 m Weight: 84.964 kg Current Active Problems (Updated 01/28/22 @ 14:34 by Bing Jones RN) Cardiac tamponade (Acute) VTE Risk Labs: VTE Related Lab Results Hgb 10.4 g/dL (12.2-16.2) L 01/28/22 10:45 Hct 31.9 % (37.0-47.0) L 01/28/22 10:45 Plt Count 334 K/mm3 (142-424) 01/28/22 10:45 BUN 34 mg/dl (7-17) H 01/28/22 10:45 Creatinine 1.90 mg/dl (0.52-1.04) H 01/28/22 10:45 Estimated Creat Clear 50 mL/min (50-200) 01/28/22 10:45 Was VTE Risk Assessment Performed: Yes VTE Score: 5 VTE Risk Level: Low Risk Prophylaxis VTE Prophylaxis Ordered?: Yes Types of VTE Prophylaxis: TEDS Knee High Location of Applied Device: Bilateral Lower Extremeties
--- NOTE | 2022-01-28 18:47 | PC.NURSE ---
250 mls of bloody drainage in pericardial drain
--- NOTE | 2022-01-28 21:38 | EXP.HP ---
History of Present Illness *Admission Date: 01/28/22 *Reason for visit:: sob *History of present illness: this patient presented to the ed with sob- 46-year-old female with a past medical history of lupus who presents from cardiology clinic with concern for increasing shortness of breath, chest pressure, back pain.? They did an EKG in the office and there was concern for diffuse ST elevations.? Patient says that this has been worsening over the last couple of days.? Denies any recent illnesses.? She says that her symptoms are worse if she lies backward.? She rates it as an 01/01- a 46-year-old female who presents with chest pressure and shortness of breath.? Hemodynamically stable and nontoxic-appearing.? Initial EKG shows diffuse ST elevations consistent with pericarditis.? I did a bedside ultrasound as well which shows a large pericardial effusion with evidence of cardiac tamponade.? I called cardiology immediately after this and they recommended sending the patient over to the [facility] for drainage and cath procedure.? Patient was sent over there and subsequently admitted to the hospital for definitive care.[facility] with [facility] Medical History (Updated 01/28/22 @ 14:34 by Bing Jones RN) Acid reflux Acute pericarditis Chest pain IBS (irritable bowel syndrome) Lupus Lupus (systemic lupus erythematosus) SOB (shortness of breath) on exertion Surgical History (Updated 01/28/22 @ 14:36 by Bing Jones RN) H/O tubal ligation H/O: hysterectomy History of partial hysterectomy Family History (Updated 01/28/22 @ 14:36 by Bing Jones RN) Pancreatic cancer Gout Family history of cancer Heart disease Family history of hypertension Family history of diabetes mellitus type II Lung cancer Social History (Updated 01/28/22 @ 14:37 by Bing Jones RN) Smoking Status: Never smoker alcohol intake: never current occupational status: employed Travel in the last 8 weeks: None household members: children Review of Systems Review of Systems Review of systems:: pertinent systems reviewed and negative unless documented below Constitutional Constitutional: Denies fever(s) Eyes Eyes: Denies eye discharge ENT Ears, Nose, Mouth, and Throat: Denies throat swelling *Cardiovascular Cardiovascular: Reports as per HPI, Reports chest pain at rest and Reports dyspnea on exertion *Respiratory Respiratory: Reports dyspnea on exertion *Gastrointestinal Gastrointestinal: Denies abdominal pain *Genitourinary Genitourinary: Denies urinary incontinence Allergic/Immunologic Allergic/Immunologic: Denies throat swelling Meds Home Medications and Allergies Home Medications Medication Instructions Recorded Confirmed Type belimumab 200 mg/mL subcutaneous 200 mg SQ WEEKLY immunosuppressive 01/14/22 01/28/22 History syringe duloxetine 60 mg capsule,delayed 60 mg PO DAILY nerve pain 01/14/22 01/28/22 History release gabapentin 100 mg capsule 100 mg PO TID nerve pain 01/14/22 01/28/22 History hydroxychloroquine 200 mg tablet 200 mg PO BID immunosuppressive 01/14/22 01/28/22 History lubiprostone 24 mcg capsule 24 mcg PO BID IBS 01/14/22 01/28/22 History oxybutynin chloride 10 mg 10 mg PO DAILY BLADDER 01/28/22 01/28/22 History tablet,extended release 24 hr pantoprazole 40 mg tablet,delayed 40 mg PO DAILY GERD 01/28/22 01/28/22 History release (Protonix) New Prescriptions to Start Prescriptions: Allergies Allergy/AdvReac Type Severity Reaction Status Date / Time Penicillins Allergy Verified 01/28/22 09:59 Exam Data for Last 24 hours Vital signs and Labs for Last 24 Hours: Temp Pulse Resp BP Pulse Ox 98.6 F 95 H 18 115/74 97 01/28/22 20:00 01/28/22 19:15 01/28/22 19:15 01/28/22 19:15 01/28/22 19:15 Laboratory Results - last 24 hr 01/28/22 10:45: WBC 11.6 H, RBC 3.90 L, Hgb 10.4 L, Hct 31.9 L, MCV 81.9, MCH 26.7 L, MCHC 32.6, RDW 13.7, Plt Cou
[2022-01-29] VITALS (13 sets, daily range): BP systolic 111–143; BP diastolic 67–88; PULSE 71–95; RESP 15–56; TEMP 36.6–36.9; O2SAT 95–98; BMI 31.9
--- NOTE | 2022-01-29 06:37 | PC.NURSE ---
pt went to bathroom and became short of air, pt asked RN to place 2LNC on pt for comfort
[2022-01-29 06:49] LABS: Basophils % 0.2 % (0.1-2.0); Hematocrit 33.2 % (37.0-47.0); Hemoglobin 10.2 g/dL (12.2-16.2); Lymphocytes # 0.7 K/mm3 (0.7-4.5); Lymphocytes % 5.9 % (10-50); Mean Corpuscular HGB Conc 30.7 g/dL (31.8-35.4); Mean Corpuscular Hemoglobin 25.9 pg (27.0-31.2); Mean Corpuscular Volume 84.5 fl (81-99); Mean Platelet Volume 8.1 fl (7.4-10.4); Monocytes # 0.4 K/mm3 (0.1-1.0); Monocytes % 3.1 % (1.7-9.3); Neutrophils # 10.4 K/mm3 (1.8-7.8); Neutrophils % 90.8 % (37.0-80.0); Platelet Count 328 K/mm3 (142-424); Red Blood Count 3.93 M/mm3 (4.20-5.40); Red Cell Distribution Width 13.8 % (11.5-17.5); White Blood Count 11.4 K/mm3 (4.8-10.8)
--- NOTE | 2022-01-29 06:50 | PC.NURSE ---
drainage in pericardial drainage bag still at 250mL tal from 1800 yesterday 01/28/22, no output for this shift, attempted to manipulate bag to see if would drain but nothing drained into bag
[2022-01-29 06:57] LABS: MANUAL DIFFERENTIAL MANUAL DIFFERENTIAL (MANUAL DIFF)
[2022-01-29 06:58] LABS: Anion Gap 12.7 mEq/L (5-15); Blood Urea Nitrogen 25 mg/dl (7-17); Calcium 8.3 mg/dl (8.4-10.2); Carbon Dioxide 23 mmol/L (22.0-30.0); Chloride 102 mmol/L (98-107); Creatinine Clearance Estimated 85 mL/min (50-200); Estimated Glomerular Filt Rate 53 ml/min (>60); GFR (African American) 64 ML/MIN (>60); Glucose 128 mg/dl (74-100); Potassium 4.7 mmoL/L (3.5-5.1); Sodium 133 mmol/L (136-145)
--- NOTE | 2022-01-29 08:00 | XR_ITS ---
FINAL REPORT CLINICAL HISTORY: Paracardial effusion COMPARISON: January 14, 2022 FINDINGS: Two views of the chest were obtained. The heart is enlarged. The mediastinum is normal. There are new bibasilar opacities. There are moderate bilateral pleural effusions. There is no pneumothorax. The bony thorax is intact. IMPRESSION: New bibasilar opacities could represent atelectasis or pneumonia. Moderate bilateral pleural effusions. Reviewed, Interpreted and Dictated by Jay Robledo III, MD Transcribed by Sigifredo Overton Authenticated and [facility]
[2022-01-29 08:35] LABS: Lymphocytes % 5 % (10-50); Monocytes % 3 % (2-9); Neutrophils % 92 % (42-76); Platelet Estimate Normal; RBC Morphology Normal; Total Cells Counted 100
--- NOTE | 2022-01-29 11:08 | EXP.CARD.PN ---
Subjective Subjective Date: 01/29/22 Time: 11:10 Principal diagnosis: Pericardial effusion/tamponade Interval history: 46-year-old black female in bed in no acute distress. Minimal pericardial drainage noted overnight. Shortness of breath noted earlier this a.m. resolved with initiation of oxygen therapy. Telemetry shows sinus rhythm with rate less than 100 bpm. Exam Data for Last 24 hours Vital signs and Labs for Last 24 Hours: Temp Pulse Resp BP Pulse Ox 98.4 F 88 40 H 111/81 98 01/29/22 08:00 01/29/22 08:00 01/29/22 08:00 01/29/22 08:00 01/29/22 08:00 Laboratory Results - last 24 hr 01/28/22 10:45: WBC 11.6 H, RBC 3.90 L, Hgb 10.4 L, Hct 31.9 L, MCV 81.9, MCH 26.7 L, MCHC 32.6, RDW 13.7, Plt Count 334, MPV 8.4, Neut % (Auto) 84.6 H, Lymph % (Auto) 10.5, [place] % (Auto) 4.5, Eos % (Auto) 0.2, Baso % (Auto) 0.2, Neut # (Auto) 9.8 H, Lymph # (Auto) 1.2, [place] # (Auto) 0.5, Eos # (Auto) 0.0, Baso # (Auto) 0.0 01/28/22 10:45: Sodium 121 L, Potassium 3.8, Chloride 89 L, Carbon Dioxide 20 L, Anion Gap 15.8 H, BUN 34 H, Creatinine 1.90 H, Estimated Creat Clear 50, Estimated GFR 28 L, Est GFR ( Amer) 34 L, Glucose 109 H, Calcium 8.6, Troponin I < 0.01 01/28/22 10:45: SARS-CoV-2 (PCR) Not detected, Influenza A Untype (PCR) Not detected, Influenza Type B (PCR) Not detected 01/28/22 11:30: Fluid Source Pericardial fluid, Fluid Volume 550, Fluid Appearance Slightly bloody, Fluid RBC (Auto) 20, Fld Tot Nucleated Cell 5600, Fld Polynuclear WBCs % 80, Fld Mononuclear WBCs % 20 01/28/22 11:30: C-Reactive Protein 288.4 H 01/29/22 06:08: WBC 11.4 H, RBC 3.93 L, Hgb 10.2 L, Hct 33.2 L, MCV 84.5, MCH 25.9 L, MCHC 30.7 L, RDW 13.8, Plt Count 328, MPV 8.1, Neut % (Auto) 90.8 H, Lymph % (Auto) 5.9 L, [place] % (Auto) 3.1, Eos % (Auto) 0.0 L, Baso % (Auto) 0.2, Neut # (Auto) 10.4 H, Lymph # (Auto) 0.7, [place] # (Auto) 0.4, Eos # (Auto) 0.0, Baso # (Auto) 0.0, Total Counted 100, Neutrophils % (Manual) 92 H, Lymphocytes % (Manual) 5 L, Monocytes % (Manual) 3, Platelet Estimate Normal, RBC Morphology Normal 01/29/22 06:08: Sodium 133 L, Potassium 4.7 D, Chloride 102, Carbon Dioxide 23, Anion Gap 12.7, BUN 25 H D, Creatinine 1.10 H D, Estimated Creat Clear 85, Estimated GFR 53 L, Est GFR ( Amer) 64 D, Glucose 128 H, Calcium 8.3 L I & O for Last 24 hours: Intake & Output 01/26/22 01/27/22 01/28/22 01/29/22 11:59 11:59 11:59 11:59 Intake Total 600 / 600 Output Total 1969 / 1969 Balance -1370 / -1370 Weight 190 lb 187 lb 5.017 oz Constitutional Constitutional: no acute distress *Routine Respiratory Exam Respiratory: Present CTA bilaterally *Routine Cardiovascular Exam Cardiovascular: Present RRR; Absent murmur, gallop or rubs Progress Note: A&P Assessment and plan (1) Acute pericarditis: Status: Acute (2) Cardiac tamponade: Status: Acute (3) Chest pain: Status: Acute (4) Acid reflux: Status: Acute (5) Lupus (systemic lupus erythematosus): Status: Acute (6) SOB (shortness of breath) on exertion: Status: Acute Assessment and Plan Assessment and Plan for All Diagnoses:: 1. Continue methylprednisolone 250 mg IV every 6 for total of 3 days 2. I have reached out to Dr. Boom Rogel at the [facility] rheumatology department for any insight on treatment or recommendations for therapy 3. Pericardial drain removed today at 3:15 PM. No immediate complications.
--- NOTE | 2022-01-29 11:09 | CA_ITS ---
APPROVED REPORT EXAM: Comprehensive 2D, Doppler, and color-flow Echocardiogram Game Author: Shannon Adams RT(R) Ht: 5 ft 4 in Wt: 187lbs BSA: 1.90 BP: 115/74 mmHg Indications: Follow up post pericardial drainage 1 day, Known bilateral pleral effusion Conclusion 1. Limited echocardiogram was obtained. Normal left ventricular size preserved left ventricular systolic function. 2. No significant pericardial effusion noted. 3. Left-sided pleural effusion seen. Electronically signed by : Jefferson Le MD 01/29/2022 20:19:09
--- NOTE | 2022-01-29 13:08 | EXP.ACUTE.PN ---
Subjective *Date: 01/30/22 *Time: 08:27 Interval history: doing some better with drain still present and card eval pending Medical Exam Vital signs and Labs for Last 24 Hours: Temp Pulse Resp BP Pulse Ox 97.9 F 88 40 H 111/81 98 01/29/22 11:38 01/29/22 08:00 01/29/22 08:00 01/29/22 08:00 01/29/22 08:00 Laboratory Results - last 24 hr 01/28/22 11:30: Fluid Source Pericardial fluid, Fluid Volume 550, Fluid Appearance Slightly bloody, Fluid RBC (Auto) 20, Fld Tot Nucleated Cell 5600, Fld Polynuclear WBCs % 80, Fld Mononuclear WBCs % 20 01/28/22 11:30: C-Reactive Protein 288.4 H 01/29/22 06:08: WBC 11.4 H, RBC 3.93 L, Hgb 10.2 L, Hct 33.2 L, MCV 84.5, MCH 25.9 L, MCHC 30.7 L, RDW 13.8, Plt Count 328, MPV 8.1, Neut % (Auto) 90.8 H, Lymph % (Auto) 5.9 L, [place] % (Auto) 3.1, Eos % (Auto) 0.0 L, Baso % (Auto) 0.2, Neut # (Auto) 10.4 H, Lymph # (Auto) 0.7, [place] # (Auto) 0.4, Eos # (Auto) 0.0, Baso # (Auto) 0.0, Total Counted 100, Neutrophils % (Manual) 92 H, Lymphocytes % (Manual) 5 L, Monocytes % (Manual) 3, Platelet Estimate Normal, RBC Morphology Normal 01/29/22 06:08: Sodium 133 L, Potassium 4.7 D, Chloride 102, Carbon Dioxide 23, Anion Gap 12.7, BUN 25 H D, Creatinine 1.10 H D, Estimated Creat Clear 85, Estimated GFR 53 L, Est GFR ( Amer) 64 D, Glucose 128 H, Calcium 8.3 L I & O for Labs for Last 24 Hours: Intake & Output 01/27/22 01/28/22 01/29/22 01/30/22 11:59 11:59 11:59 11:59 Intake Total 600 / 600 Output Total 1970 / 1969 Balance -1370 / -1370 Weight 190 lb 187 lb 4.876 oz Head: atraumatic Eyes: as per HPI ENT: mucous membranes dry Neck: trachea midline Respiratory: decreased breath sounds Cardiac: Reg Rate and Rhythm Comment:: has pericardial drain GI: soft Extremities: tenderness Skin: cyanosis Neuro: Cranial Nerve 2-12 Intact
[2022-01-29 13:10] LABS: Albumin, Body Fluid 2.9 g/dL (Not Estab.); Glucose, Body Fluid 41 mg/dL (.); LD, Body Fluid 1425 IU/L (.); Protein, Body Fluid 6.2 g/dL (.)
--- NOTE | 2022-01-29 14:47 | PC.NURSE ---
rounded on patient. assisted patient with walking to bathroom and back to bed. no concerns or questions at this time. pericardial drain in place. no complaints. encouraged her to ring out with any needs or concerns.
--- NOTE | 2022-01-29 15:22 | PC.NURSE ---
pericardial drain pulled by Cassy ASENCIO. Pt denies dyspnea and chest pain. Is without distress. No issues noted.
[2022-01-30] VITALS (13 sets, daily range): BP systolic 103–182; BP diastolic 57–79; PULSE 60–100; RESP 16–31; TEMP 36.5–37.1; O2SAT 95–100; BMI 31.4
--- NOTE | 2022-01-30 03:54 | PC.NURSE ---
Pt sleeping at this time. Has denied any discomfort or soa. Has remained on RA t/o shift.O2 sats mid to upper 90s. VSS. Pt is sinus with continued ST elevation on telemetry. aware. Pt has ambulated with assistance to BR and tolerated well. No BM. DSG from previous pericardial drain is C/D/I. Call light at bedside.
--- NOTE | 2022-01-30 08:15 | EXP.PN ---
Subjective *Date: 01/30/22 *Time: 17:40 Interval history: uneventful night drain out iv steroids Exam Data for Last 24 hours Vital signs and Labs for Last 24 Hours: Temp Pulse Resp BP Pulse Ox 98.5 F 68 17 120/78 97 01/30/22 04:00 01/30/22 06:00 01/30/22 06:00 01/30/22 06:00 01/30/22 06:00 Laboratory Results - last 24 hr 01/28/22 11:30: Fluid Total Protein 6.2, Fluid Albumin 2.9 01/28/22 11:30: Fluid Glucose 41, Fluid LDH 1425 01/29/22 06:08: Total Counted 100, Neutrophils % (Manual) 92 H, Lymphocytes % (Manual) 5 L, Monocytes % (Manual) 3, Platelet Estimate Normal, RBC Morphology Normal I & O for Last 24 hours: Intake & Output 01/27/22 01/28/22 01/29/22 01/30/22 23:59 23:59 23:59 23:59 Intake Total 480 / 480 2411 / 2411 Output Total 1720 / 1720 550 / 550 0 / 0 Balance -1240 / -1240 1861 / 1861 0 / 0 Weight 187 lb 5 oz 187 lb 4.876 oz 184 lb Microbiology Reports for the Last 24 Hours: Microbiology 01/28/22 11:30 Pericardial Fluid - Pericardial Gram Stain - Final 01/28/22 11:30 Pericardial Fluid - Pericardial Body Fluid Culture - Preliminary NO GROWTH AFTER 24 HOURS Constitutional Constitutional: no acute distress *Routine HEENT Exam Head: Present normocephalic Eye: Present EOMI ENT: Present mucous membranes moist *Routine Neck Exam Neck: Present supple *Routine Respiratory Exam Respiratory: Present CTA bilaterally *Routine Cardiovascular Exam Cardiovascular: Present RRR *Routine Abdominal Exam Abdominal: Present soft *Routine Extremities Exam Extremities: Absent cyanosis *Routine Skin Exam Skin: Present intact *Routine Neurological Exam Neurological: Present alert and oriented X3 Assessment and Plan *Assessment and plan (1) Cardiac tamponade: Status: Acute Category: Medical Code(s): I31.4 - Cardiac tamponade (2) Acute pericarditis: Status: Acute Qualifiers: Pericarditis type: associated with systemic lupus erythematosus Qualified Code(s): M32.12 - Pericarditis in systemic lupus erythematosus Category: Medical Code(s): I30.9 - Acute pericarditis, unspecified (3) Lupus (systemic lupus erythematosus): Status: Acute Category: Medical Code(s): M32.9 - Systemic lupus erythematosus, unspecified Plan continue steroids cardiology to confer w/rheum about optimal regimen
--- NOTE | 2022-01-30 09:38 | PC.NURSE ---
rounded with md. no complaints for patient. pericardial drained removed yesterday. awaiting for cardiology this morning, on further recommendations.
--- NOTE | 2022-01-30 11:59 | P.PN_ITS ---
Subjective Subjective Date: 01/30/22 Time: 11:59 Principal diagnosis: Pericardial effusion/tamponade Interval history: 46-year-old black female in bed in no acute distress. No complaints overnight. No evidence of conversational dyspnea at this time. Telemetry shows heart rate sinus and regular. Pericardial fluid analysis appears to be exudative which would be consistent with the patient's history of lupus. Exam Data for Last 24 hours Vital signs and Labs for Last 24 Hours: Temp Pulse Resp BP Pulse Ox 97.7 F 88 16 103/57 L 96 01/30/22 08:00 01/30/22 08:00 01/30/22 08:00 01/30/22 08:00 01/30/22 08:00 Laboratory Results - last 24 hr 01/28/22 11:30: Fluid Total Protein 6.2, Fluid Albumin 2.9 01/28/22 11:30: Fluid Glucose 41, Fluid LDH 1425 01/28/22 11:30: Fluid pH 7.0 I & O for Last 24 hours: Intake & Output 01/27/22 01/28/22 01/29/22 01/30/22 11:59 11:59 11:59 11:59 Intake Total 2291 / 2291 900 / 900 Output Total 1970 / 1970 300 / 300 Balance 321 / 321 600 / 600 Weight 190 lb 187 lb 4.876 oz 184 lb Microbiology Reports for the Last 24 Hours: Microbiology 01/28/22 11:30 Pericardial Fluid - Pericardial Gram Stain - Final 01/28/22 11:30 Pericardial Fluid - Pericardial Body Fluid Culture - Preliminary NO GROWTH AFTER 24 HOURS Constitutional Constitutional: no acute distress *Routine Respiratory Exam Respiratory: Present CTA bilaterally *Routine Cardiovascular Exam Cardiovascular: Present RRR; Absent murmur, gallop or rubs Progress Note: A&P Assessment and plan (1) Cardiac tamponade: Status: Acute (2) Acute pericarditis: Status: Acute (3) Lupus (systemic lupus erythematosus): Status: Acute Assessment and Plan Assessment and Plan for All Diagnoses:: Continue IV steroids as ordered. Plan for discharge tomorrow evening after final IV steroid dose. 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
--- NOTE | 2022-01-30 15:15 | PC.NURSE ---
Patient resting comfortably in bed, denies any cp or soa this shift, has been up in room, remains on RA, alert and oriented x4, pericardial site dsg removed per md order, site cdi, no bleeding or hematoma noted, vss, bed in lowest position with call light in reach.
[2022-01-31] VITALS: PULSE 60
[2022-01-31 03:57] VITALS: BP 122/68; PULSE 85; RESP 16; TEMP 36.6; O2SAT 98
[2022-01-31 04:00] VITALS: PULSE 70
[2022-01-31 04:47] VITALS: BMI 31.7
--- NOTE | 2022-01-31 05:22 | PC.NURSE ---
No acute changes noted this shift. Pt has denied any discomfort or soa. Has remained on RA with O2 sats 99%. Pt has been sinus to sinus james on telemetry with continued St elevation noted. MD aware. Post pericardial drain area NAYELI. No inflammation noted. Pt has ambulated to with standby assist. Tolerated well. Medications administered per jul. Call light at bedside.
[2022-01-31 08:00] VITALS: BP 110/54; PULSE 60; PULSE 68; RESP 16; TEMP 36.6; O2SAT 100
--- NOTE | 2022-01-31 09:33 | CA_ITS ---
APPROVED REPORT EXAM: Comprehensive 2D, Doppler, and color-flow Echocardiogram Admissions Consultant: Shannon Adams RT(R) Ht: 5 ft 4 in Wt: 186lbs BSA: 1.90 BP: 000/00 mmHg Indications: F/U PERICARDIAL EFF Conclusion 1. Limited echocardiogram was obtained for follow-up on pericardial effusion. 2. Normal left ventricular size and function. 3. No significant pericardial effusion noted, there is left-sided pleural effusion seen. Electronically signed by : Jefferson Le MD 01/31/2022 10:41:54
--- NOTE | 2022-01-31 10:33 | P.PN_ITS ---
Subjective Subjective Date: 01/31/22 Time: 10:33 Principal diagnosis: Pericardial effusion/tamponade Interval history: 46-year-old black female sitting at bedside in no acute distress. No chest pain or shortness of breath. Patient is requesting a follow-up echocardiogram prior to discharge to confirm that no fluid is recurring Exam Data for Last 24 hours Vital signs and Labs for Last 24 Hours: Temp Pulse Resp BP Pulse Ox 97.8 F 68 16 110/54 L 100 01/31/22 08:00 01/31/22 08:00 01/31/22 08:00 01/31/22 08:00 01/31/22 08:00 Laboratory Results - last 24 hr 01/28/22 11:30: Fluid pH 7.0 I & O for Last 24 hours: Intake & Output 01/28/22 01/29/22 01/30/22 01/31/22 11:59 11:59 11:59 11:59 Intake Total 2291 / 2291 900 / 900 960 / 960 Output Total 1970 / 1970 300 / 300 1150 / 1150 Balance 321 / 321 600 / 600 -190 / -190 Weight 190 lb 187 lb 4.876 oz 184 lb 186 lb Microbiology Reports for the Last 24 Hours: Microbiology 01/28/22 11:30 Pericardial Fluid - Pericardial Gram Stain - Final 01/28/22 11:30 Pericardial Fluid - Pericardial Body Fluid Culture - Preliminary NO GROWTH AFTER 48 HOURS *Routine Respiratory Exam Respiratory: Present CTA bilaterally *Routine Cardiovascular Exam Cardiovascular: Present RRR; Absent murmur, gallop or rubs Progress Note: A&P Assessment and plan (1) Cardiac tamponade: Status: Acute (2) Acute pericarditis: Status: Acute (3) Lupus (systemic lupus erythematosus): Status: Acute Assessment and Plan Assessment and Plan for All Diagnoses:: Stable from a cardiac standpoint for discharge. Patient received 100 mg of IV methylprednisolone this morning. She also received 50 mg of oral prednisone which she will continue tapering by 10 mg daily each week. She will have a follow-up with her steam press tender in the next 2 weeks. We would like to see her back in the office in 1 week. Stable for discharge home from cardiology standpoint. Home medication recommendations Prednisone 50 mg daily Protonix 40 mg daily Resume other medications as directed by PCP. Follow-up in our office in 1 week
--- NOTE | 2022-01-31 10:50 | EXP.DC.SUM ---
General Admission date:: 01/28/22 Discharge date: 01/31/22 HPI HPI HPI: this patient presented to the ed with sob- 46-year-old female with a past medical history of lupus who presents from cardiology clinic with concern for increasing shortness of breath, chest pressure, back pain.? They did an EKG in the office and there was concern for diffuse ST elevations.? Patient says that this has been worsening over the last couple of days.? Denies any recent illnesses.? She says that her symptoms are worse if she lies backward.? She rates it as an 01/01- a 46-year-old female who presents with chest pressure and shortness of breath.? Hemodynamically stable and nontoxic-appearing.? Initial EKG shows diffuse ST elevations consistent with pericarditis.? I did a bedside ultrasound as well which shows a large pericardial effusion with evidence of cardiac tamponade.? I called cardiology immediately after this and they recommended sending the patient over to the Buckle Inspector for drainage and cath procedure.? Patient was sent over there and subsequently admitted to the hospital for definitive care.pt with acute pericardiocentesis Hospital Course Hospital Course Hospital Course: pt was admitted and had cardiac procedure-Left Ventricle Left atrium is normal size, left ventricle normal size, estimated ejection fraction 55 to 60% with no regional wall motion abnormality. Right Ventricle Right atrium is normal size, right ventricle has intermittent buckling due to large pericardial effusion suggestive of tamponade. Aortic Valve Aortic valve is minimally thickened and fibrosed there is no aortic stenosis or aortic insufficiency. Mitral Valve Mitral valve is grossly normal there is trace mitral regurgitation. Tricuspid Valve Tricuspid valve grossly normal, there is trace tricuspid regurgitation, tricuspid regurgitation jet velocity is inadequate for calculation of the right ventricular pressure. Pulmonic Valve Pulmonic valve is poorly visualized. Great Vessels Aortic root is normal size. Inferior vena cava is dilated without significant inspiratory collapse. Pericardium There is large circumferential pericardial effusion noted with Doppler evidence of tamponade physiology. Subsequently patient underwent pericardial effusion drainage which subsequently shows normal right ventricular size and function, at the end of the echocardiogram there is small pericardial effusion. Conclusion 1.? Large pericardial effusion with tamponade physiology, subsequently patient underwent pericardiocentesis with resolution of tamponade physiology by echocardiogram, at the end of the procedure with a small pericardial effusion left./11/13 11:30 ? Pericardial Fluid - Pericardial ? Gram Stain - Final 01/28/22 11:30 ? Pericardial Fluid - Pericardial ? Body Fluid Culture - Preliminary ? NO GROWTH AFTER 48 HOURS *Routine Respiratory Exam Respiratory: Present CTA bilaterally *Routine Cardiovascular Exam Cardiovascular: Present RRR; Absent murmur, gallop or rubs Progress Note: A&P Assessment and plan (1) Cardiac tamponade: ?Status:?Acute (2) Acute pericarditis: ?Status:?Acute (3) Lupus (systemic lupus erythematosus): ?Status:?Acute Assessment and Plan Assessment and Plan for All Diagnoses:: Stable from a cardiac standpoint for discharge.? Patient received 100 mg of IV methylprednisolone this morning.? She also received 50 mg of oral prednisone which she will continue tapering by 10 mg daily each week.? She will have a follow-up with her integrated circuit layout designer in the next 2 weeks.? We would like to see her back in the office in 1 week. Stable for discharge home from cardiology standpoint. Home medication recommendations Prednisone 50 mg daily Protonix 40 mg daily Resume other medications as directed by PCP. Follow-up in our office in 1 week 2.? Normal left ventricular size with preserved left ventricular systolic function. 3.? No significant
--- NOTE | 2022-02-03 13:00 | CARE MANAGER ---
Contacted patient related to hospital discharge. Patient states she is doing well. The only different medication she had was Prednisone and she is taking it. She is aware of her follow up appointments and denies any questions or concerns at this time. NAKITA Rutledge
== END 2022-01-31 12:45 | disposition home or self-care (01) | DRG 546 ==
LOC: ER 11:49 → 2ND 11:54
PROVIDERS: Internal Medicine; Physician Assistant; Admitting Provider Family Medicine; Emergency Provider Student in an Organized Health Care Education/Training Program; Visit Provider Family Medicine
PROC: 0W9D30Z Drainage of Pericardial Cavity with Drainage Device, Percutaneous Approach (ICD-10-PCS; principal; 2022-01-28 09:30)
DX: M32.12 Pericarditis in systemic lupus erythematosus (principal); I31.4 Cardiac tamponade; I31.9 Disease of pericardium, unspecified; M32.9 Systemic lupus erythematosus, unspecified
CPT/HCPCS: 33017; 33010; 36415; 71046; 80048; 82042; 82945; 83615; 83986; 84155; 84484; 85007; 85025; 86140; 87070; 87077; 87186; 87205; 89051; 93005; 93308; 99152; 99153; 99285; C1725; C9803; J1644; U0003; U0005

== ENCOUNTER → 2022-02-10 07:38 | Outpatient (CLI) | payer OTHER, SELFPAY ==
[2022-02-10 21:10] LABS: C-Reactive Protein 79.5 mg/L (0-4)
[2022-02-10 23:05] LABS: Erythrocyte Sedimentation Rate 54 mm/hr (0-20)
== END ==
PROVIDERS: PCP Family Medicine; Visit Provider Family Medicine
DX: M32.9 Systemic lupus erythematosus, unspecified (principal)
CPT/HCPCS: 85651; 86140

== ENCOUNTER → 2022-02-13 14:59 | Outpatient (CLI) | payer OTHER, SELFPAY ==
--- NOTE | 2022-02-13 15:02 | CA_ITS ---
APPROVED REPORT EXAM: Comprehensive 2D, Doppler, and color-flow Echocardiogram Face Painter: Judy Mcfadden CRT Ht: 5 ft 4 in Wt: 172lbs BSA: 1.83 BP: 112/66 mmHg Indications: f/u pericardial effusion, lupus Conclusion 1. Limited echocardiogram was obtained to evaluate for pericardial effusion. 2. Normal left ventricular size and function. 3. No significant pericardial effusion noted. Electronically signed by : Jefferson Le MD 02/14/2022 10:21:22
--- NOTE | 2022-02-13 15:29 | XR_ITS ---
FINAL REPORT TECHNIQUE: Chest PA & Lateral CLINICAL HISTORY: pleural effusion COMPARISON: January 29, 2022 FINDINGS: 2 views of the chest were performed. The heart size is normal. The mediastinum is within normal limits. There are patchy bilateral airspace infiltrates greater in the right base than left. The previous pleural effusions have resolved. There is no pneumothorax. The bony thorax appears intact. IMPRESSION: Patchy bilateral airspace infiltrates probably due to acute pneumonia. Reviewed, Interpreted and Dictated by Matt Murray MD Transcribed by Sigifredo Overton Authenticated and [facility]
== END ==
PROVIDERS: PCP Family Medicine; Visit Provider Nurse Practitioner Family
DX: R06.02 Shortness of breath (principal); I31.4 Cardiac tamponade; M32.9 Systemic lupus erythematosus, unspecified; I31.3 Pericardial effusion (noninflammatory); J90 Pleural effusion, not elsewhere classified; Z86.79 Personal history of other diseases of the circulatory system
CPT/HCPCS: 71046; 93308

== ENCOUNTER → 2022-02-21 14:33 | Outpatient (CLI) | payer OTHER, SELFPAY ==
--- NOTE | 2022-02-21 14:33 | CT_ITS ---
FINAL REPORT TECHNIQUE: Axial imaging of the chest was obtained without intravenous contrast administration. This study was performed with techniques to keep radiation doses as low as reasonably achievable (ALARA). Individualized dose reduction techniques using automated exposure control or adjustment of mA and/or kV according to the patient's size were employed. CLINICAL HISTORY: pleural effusion FINDINGS: There is patchy airspace disease in the right middle lobe and minimally in the left upper lobe compatible with pneumonia. There are small nodular densities in the right upper lobe measuring 6 mm and in the left upper lobe measuring 5 mm. Finding is well seen on image 20 of series 2. There is mild right pleural thickening and trace right effusion. No adenopathy or mass lesion is seen. IMPRESSION: Bilateral pneumonia, greatest in the right middle lobe without evidence of significant pleural effusion. Six-month chest CT follow-up is recommended for visualized subcentimeter nodules. Reviewed, Interpreted and Dictated by Cassy Bojorquez MD Transcribed by Zehra Wilks Authenticated and [facility]
== END ==
PROVIDERS: PCP Family Medicine; Visit Provider Internal Medicine
DX: J90 Pleural effusion, not elsewhere classified (principal)
CPT/HCPCS: 71250

== ENCOUNTER → 2022-03-20 09:33 | Outpatient (CLI) | payer OTHER, SELFPAY ==
--- NOTE | 2022-03-20 09:42 | XR_ITS ---
FINAL REPORT CLINICAL HISTORY: recent pneumonia COMPARISON: 01/14/2022 FINDINGS: TWO-VIEW CHEST The heart size is normal. The mediastinum is normal. There is mild bibasilar atelectasis or scar with small right effusion. There is no pneumothorax. IMPRESSION: Bibasilar atelectasis or scar with small right effusion. Reviewed, Interpreted and Dictated by Jay Robledo III, MD Transcribed by Zehra Wilks Authenticated and [facility]
[2022-03-20 10:08] LABS: Microscopic, Urine URINE MICROSCOPIC (MICROSCOPIC)
[2022-03-20 10:55] LABS: Basophils # 0.1 K/mm3 (0-0.2); Basophils % 1.3 % (0.1-2.0); Eosinophils # 0.1 K/mm3 (0.0-0.4); Eosinophils % 1.6 % (0.1-12.0); Hematocrit 34.9 % (37.0-47.0); Hemoglobin 10.9 g/dL (12.2-16.2); Lymphocytes # 2.6 K/mm3 (0.7-4.5); Lymphocytes % 50.3 % (10-50); Mean Corpuscular HGB Conc 31.4 g/dL (31.8-35.4); Mean Corpuscular Hemoglobin 25.9 pg (27.0-31.2); Mean Corpuscular Volume 82.6 fl (81-99); Monocytes # 0.3 K/mm3 (0.1-1.0); Monocytes % 6.2 % (1.7-9.3); Neutrophils # 2.1 K/mm3 (1.8-7.8); Neutrophils % 40.7 % (37.0-80.0); Platelet Count 294 K/mm3 (142-424); Red Blood Count 4.22 M/mm3 (4.20-5.40); Red Cell Distribution Width 16.4 % (11.5-17.5); White Blood Count 5.1 K/mm3 (4.8-10.8)
[2022-03-20 10:58] LABS: MANUAL DIFFERENTIAL MANUAL DIFFERENTIAL (MANUAL DIFF)
[2022-03-20 11:04] LABS: Eosinophils % 2 % (0-3); Lymphocytes % 44 % (10-50); Monocytes % 6 % (2-9); Neutrophils % 48 % (42-76); Total Cells Counted 100
[2022-03-20 11:05] LABS: Platelet Estimate Normal; RBC Morphology Normal
[2022-03-20 11:06] LABS: Chloride 99 mmol/L (98-107); Potassium 4.2 mmoL/L (3.5-5.1); Sodium 139 mmol/L (136-145)
[2022-03-20 11:09] LABS: Anion Gap 14.2 mEq/L (5-15); Blood Urea Nitrogen 9 mg/dl (7-17); Calcium 8.8 mg/dl (8.4-10.2); Carbon Dioxide 30 mmol/L (22.0-30.0); Estimated Glomerular Filt Rate 77 ml/min (>60); GFR (African American) 93 ML/MIN (>60); Glucose 86 mg/dl (74-100)
[2022-03-20 12:31] LABS: Appearance,Urine CLEAR (Clear); Bilirubin,Urine Negative (Negative); Blood, Urine Negative (Negative); Color,Urine YELLOW (Yellow); Glucose,Urine (UA) Negative (Negative); Ketones,Urine Negative (Negative); Leukocyte Esterase,Urine Negative (Negative); Nitrate,Urine Negative (Negative); Protein,Urine Negative (Negative); Urobilinogen,Urine 0.2 EU/dl (0.2)
[2022-03-20 12:42] LABS: Bacteria,Urine Trace /lpf; Squamous Epithelial Cell,Urine Occasional #/hpf (0-5)
== END ==
PROVIDERS: PCP Nurse Practitioner Family; Visit Provider Physician Assistant
DX: R06.02 Shortness of breath (principal); R07.9 Chest pain, unspecified; I31.3 Pericardial effusion (noninflammatory); I31.4 Cardiac tamponade; M32.9 Systemic lupus erythematosus, unspecified; M62.838 Other muscle spasm; Z86.79 Personal history of other diseases of the circulatory system
CPT/HCPCS: 36415; 71046; 80048; 81001; 85007; 85025

== ENCOUNTER → 2022-05-20 09:54 | Outpatient (CLI) | payer OTHER, SELFPAY | PROVIDERS: PCP Nurse Practitioner Family; Visit Provider Internal Medicine Pulmonary Disease | DX: R06.09 Other forms of dyspnea (principal) | CPT/HCPCS: 94060; 94618; 94726; 94729 ==

== ENCOUNTER → 2022-06-06 15:12 | Outpatient (CLI) | payer OTHER, SELFPAY ==
--- NOTE | 2022-06-06 15:12 | CT_ITS ---
FINAL REPORT TECHNIQUE: Axial CT images were performed from the lung apices through the upper abdomen. Coronal reformats were submitted. Thin section axial images of the chest were obtained by computed tomography with inspiration and expiration supine and prone inspiration. High-resolution technique was utilized, supine expiration and inspiration and prone inspiration. CLINICAL HISTORY: SOA CT CHEST HIGH RESOLUTION X 3 COMPARISON: 02/21/2022 FINDINGS: There is left pleural thickening. There is bibasilar atelectasis. There are several noncalcified bilateral pulmonary nodules. Lateral right upper lobe nodule measures 6 mm, previously measured 6 mm. There is a 5 mm left upper lobe nodule which is stable. No new mass or nodule is identified. There has been interval improvement in the right middle lobe opacities with persistent scar. There is no evidence of emphysema or bronchiectasis. There is no evidence of significant interstitial fibrosis. There are multiple mildly enlarged axillary nodes which are worse. Findings are nonspecific, favor reactive over neoplastic. There are small right adrenal calcifications, stable. IMPRESSION: Improved right middle lobe opacities with mild residual scar. Other areas of scarring and small nodules are stable. Mild but worsening axillary adenopathy, favor reactive over neoplastic. Reviewed, Interpreted and Dictated by Jay Robledo III, MD Transcribed by Zehra Wilks Authenticated and [facility]
== END ==
PROVIDERS: PCP Nurse Practitioner Family; Visit Provider Internal Medicine Pulmonary Disease
DX: R06.02 Shortness of breath (principal); J84.9 Interstitial pulmonary disease, unspecified
CPT/HCPCS: 71250

== ENCOUNTER → 2022-08-26 10:05 | Outpatient (CLI) | payer OTHER, SELFPAY | PROVIDERS: PCP Nurse Practitioner Family; Visit Provider Internal Medicine Pulmonary Disease | DX: R06.09 Other forms of dyspnea (principal) | CPT/HCPCS: 94060; 94618; 94726; 94729 ==

== ENCOUNTER → 2022-11-19 08:09 | Outpatient (CLI) | payer OTHER, SELFPAY | PROVIDERS: PCP Nurse Practitioner Family; Visit Provider Physician Assistant | DX: R06.00 Dyspnea, unspecified (principal); I31.3 Pericardial effusion (noninflammatory); I31.4 Cardiac tamponade; J45.909 Unspecified asthma, uncomplicated; J90 Pleural effusion, not elsewhere classified; J98.4 Other disorders of lung; M32.9 Systemic lupus erythematosus, unspecified; Z86.79 Personal history of other diseases of the circulatory system | CPT/HCPCS: 93306 ==

== ENCOUNTER → 2022-12-03 10:11 | Outpatient (CLI) | payer OTHER, SELFPAY | PROVIDERS: PCP Nurse Practitioner Family; Visit Provider Internal Medicine Pulmonary Disease | DX: R06.02 Shortness of breath (principal); R06.09 Other forms of dyspnea | CPT/HCPCS: 94060 ==

== ENCOUNTER → 2023-05-15 15:15 | Outpatient (CLI) | payer OTHER, SELFPAY ==
--- NOTE | 2023-05-15 15:15 | CA_ITS ---
APPROVED REPORT EXAM: Comprehensive 2D, Doppler, and color-flow Echocardiogram Compliance Reviewer: Judy Mcfadden CRT Ht: 5 ft 7 in Wt: 160lbs BSA: 1.84 BP: 96/65 mmHg Indications: Pericardial Effusion hx, Pericarditis hx, RVE, asthma, pleural effusion 2D Dimensions Left Atrium 3.11 cm LVEF (Tejeda's) 50.80 % LVOT 1.75 cm (M/F) 1.5-2.5 LV Volume 89.00 mL LA Volume 36.20 mL LA Volume Index 19.70 mL/m2 (M/F) 16-34 EF AP4 52.90 % EF AP2 47.3 % EF BP 50.8 % GL Strain -18.4 % M-Mode Dimensions RVDd 2.42 cm (0.9-2.6) LVDd 4.97 cm (3.5-5.7) Ao Diam 3.09 cm (2.0-3.7) LVDs 3.72 cm (3.5-5.7) IVSd 1.04 cm (0.6-1.1) PWd 0.78 cm (0.6-1.1) EF (Teich) 49.50% FS 25.20% EDV (Teich) 116.60 mL TAPSE 2.02 (<1.7) ESV (Teich) 58.90 mL LV Diastology E Decel Time 178 (160-240 msec) E/A Ratio 1.17 MED E' 11.3 (>= 7 cm/sec) MED A' 9.10 cm/s E'/MED E' Ratio 6.38 (<= 14) LAT E' 16.7 (>= 10 cm/sec) LAT A' 9.90 cm/s E/LAT E' Ratio 4.32 (<= 14) Aortic Valve AoV Peak Wood. 135.0 (50-130 cm/s) AO Peak GR. 7.30 mmHg Mitral Valve MV E Max Wood. 72.0 (40-130 cm/s) MV A Velocity 62.0 (40-130 cm/s) E/A Ratio 1.17 MV Decel. Time 178 (160-240 ms) Tricuspid Valve TR P. Velocity 192.00 cm/s RAP Estimate 10.00 mmHg RVSP 24.70 mmHg Left Ventricle The left ventricle is normal size. The left ventricular systolic function is normal. The left ventricular ejection fraction is within the normal range. There is normal left ventricular wall thickness. There is normal LV segmental wall motion. The left ventricular diastolic function is normal. LVEF is 50-55% Right Ventricle The right ventricle is normal size. The right ventricular systolic function is normal. Atria The left atrium size is normal. The right atrium size is normal. There is no Doppler evidence of interatrial shunt. Aortic Valve The aortic valve is normal in structure. The aortic valve is trileaflet. There is no aortic valvular stenosis. No aortic regurgitation is present. Mitral Valve The mitral valve is normal in structure. No evidence of mitral valve stenosis. Trace mitral regurgitation. Tricuspid Valve The tricuspid valve leaflets are thin and pliable. Mild tricuspid regurgitation. RVSP is normal. Pulmonic Valve The pulmonary valve is normal in structure. Trace pulmonic regurgitation. Great Vessels The aortic root is normal in size. The ascending aorta is normal in size. IVC is normal in size and collapses >50% with inspiration. Pericardium There is no pericardial effusion. Other Information Study Quality: Adequate Conclusion Normal biventricular systolic function. No significant valvular stenosis or regurgitation. No evidence of pericardial effusion. Electronically signed by : Ermelinda Cabello MD 05/19/2023 21:20:51
== END ==
LOC: RT 15:15
PROVIDERS: PCP Nurse Practitioner Family; Visit Provider Physician Assistant
DX: I31.39 Other pericardial effusion (noninflammatory) (principal); I31.4 Cardiac tamponade; J90 Pleural effusion, not elsewhere classified; M32.9 Systemic lupus erythematosus, unspecified; Z86.79 Personal history of other diseases of the circulatory system; R06.09 Other forms of dyspnea
CPT/HCPCS: 93306

== ENCOUNTER 2023-06-10 10:01 | Outpatient (CLI) | payer OTHER, SELFPAY ==
[2023-06-10 11:00] VITALS: PULSE 63; PULSE 66
[2023-06-10] MEDS: ALBUTEROL 0.083% 2.5 MG/3 ML NEB IH (11:00)
== END 2023-06-10 23:59 ==
LOC: RT 10:01
PROVIDERS: PCP Nurse Practitioner Family; Visit Provider Internal Medicine Pulmonary Disease
DX: R06.09 Other forms of dyspnea (principal)
CPT/HCPCS: 94060; 94618; 94640; 94726; 94729

== ENCOUNTER 2024-05-24 12:51 | Outpatient (CLI) | payer OTHER, SELFPAY ==
--- NOTE | 2024-05-24 12:57 | CA_ITS ---
FINAL REPORT TECHNIQUE: Ultrasound images of the deep venous system were obtained from the left groin to the calf veins. CLINICAL HISTORY: DM, Left leg edema x 2 weeks ago has since resolved COMPARISON: None FINDINGS: The left lower extremity deep venous system is normally compressible. Normal flow is identified. IMPRESSION: No evidence of left lower extremity DVT. Reviewed, Interpreted and Dictated by Natalie Gutierrez MD Transcribed by Zayda Perera Authenticated and [facility]
--- NOTE | 2024-05-24 12:57 | US_ITS ---
FINAL REPORT CLINICAL HISTORY: claudication, DM, Left leg edema COMPARISON: None FINDINGS: ANKLE-BRACHIAL PRESSURE INDICES Pressure indices are as follows: RIGHT LOWER EXTREMITY: Ankle-brachial pressure index: 1.15 Comments: Normal LEFT LOWER EXTREMITY: Ankle-brachial pressure index: 1.15 Comments: Normal CONCLUSION: No evidence of significant obstructive peripheral vascular disease of the lower extremities Reviewed, Interpreted and Dictated by Natalie Gutierrez MD Transcribed by Zayda Perera Authenticated and [facility]
[2024-05-24 14:27] LABS: Chloride 97 mmol/L (98-107)
[2024-05-24 14:28] LABS: Potassium 4.8 mmoL/L (3.5-5.1); Sodium 136 mmol/L (136-145)
[2024-05-24 14:30] LABS: Blood Urea Nitrogen 28 mg/dl (7-17); Estimated Glomerular Filt Rate 43 ml/min (>60); GFR (African American) 52 ML/MIN (>60)
[2024-05-24 14:31] LABS: Anion Gap 11.8 mEq/L (5-15); Calcium 9.5 mg/dl (8.4-10.2); Carbon Dioxide 32 mmol/L (22.0-30.0); Glucose 98 mg/dl (74-100)
== END 2024-05-24 23:59 | disposition home or self-care (01) ==
PROVIDERS: PCP Nurse Practitioner Family; Visit Provider Nurse Practitioner Family
DX: M79.89 Other specified soft tissue disorders (principal); I73.9 Peripheral vascular disease, unspecified; E11.9 Type 2 diabetes mellitus without complications; J98.4 Other disorders of lung; J45.30 Mild persistent asthma, uncomplicated; M32.9 Systemic lupus erythematosus, unspecified; K21.9 Gastro-esophageal reflux disease without esophagitis; Z86.79 Personal history of other diseases of the circulatory system
CPT/HCPCS: 36415; 80048; 93923; 93971

== ENCOUNTER 2024-06-16 10:00 | Outpatient (CLI) | payer OTHER, SELFPAY | END 2024-06-16 23:59 | disposition home or self-care (01) | LOC: RT 10:01 | PROVIDERS: PCP Nurse Practitioner Family; Visit Provider Internal Medicine Pulmonary Disease | DX: R06.09 Other forms of dyspnea (principal) | CPT/HCPCS: 94060; 94618; 94726; 94729 ==

== ENCOUNTER 2025-01-30 15:15 | Outpatient (CLI) | payer OTHER, SELFPAY ==
--- NOTE | 2025-01-30 15:15 | CA_ITS ---
APPROVED REPORT EXAM: Comprehensive 2D, Doppler, and color-flow Echocardiogram Caster Operator: Judy Mcfadden CRT Ht: 5 ft 7 in Wt: 160lbs BSA: 1.84 BP: 103/86 mmHg Indications: LV Function:, history of Pericarditis & Tamponade 2D Dimensions LA Volume 28.40 mL LA Volume Index 15.10 mL/m2 (M/F) 16-34 M-Mode Dimensions RVDd 2.04 cm (0.9-2.6) LA Diam 3.12 cm (1.9-4.0) LVDd 4.68 cm (3.5-5.7) LVDs 3.05 cm (3.5-5.7) IVSd 0.96 cm (0.6-1.1) PWd 0.87 cm (0.6-1.1) EF (Teich) 64.10% FS 34.80% EDV (Teich) 101.30 mL TAPSE 1.83 (<1.7) ESV (Teich) 36.40 mL LV Diastology E Decel Time 203 (160-240 msec) E/A Ratio 1.26 MED A' 12.20 cm/s LAT A' 8.80 cm/s Aortic Valve AO Peak GR. 8.60 mmHg Mitral Valve MV E Max Wood. 80.0 (40-130 cm/s) MV A Velocity 64.0 (40-130 cm/s) E/A Ratio 1.26 MV PHT 60.0 ms Pulmonary Valve PV Peak Velocity 154.0 (50-150 cm/s) Tricuspid Valve TR P. Velocity 215.00 cm/s RAP Estimate 10.00 mmHg RVSP 28.50 mmHg Left Ventricle The left ventricle is normal size. Left ventricular systolic function is normal. The left ventricular ejection fraction is within the normal range. There is normal left ventricular wall thickness. There is normal LV segmental wall motion. The left ventricular diastolic function is normal. LVEF is 55% Right Ventricle The right ventricle is normal size. The right ventricular systolic function is normal. Atria The left atrium is mildly dilated. The right atrium is mildly dilated. There is no color Doppler evidence of interatrial shunt. Aortic Valve The aortic valve opens well. There is no hemodynamically significant aortic valvular stenosis. No aortic regurgitation is present. Mitral Valve The mitral valve is normal in structure. No evidence of mitral valve stenosis. Trace mitral regurgitation is present. Tricuspid Valve The tricuspid valve leaflets are thin and pliable. Mild tricuspid regurgitation. RVSP is 20-25 mmHg. Pulmonic Valve The pulmonary valve is grossly normal in structure. Mild pulmonic valve regurgitation is present. Great Vessels The aortic root is normal in size. IVC is normal in size and collapses >50% with inspiration. Pericardium There is no pericardial effusion. Other Information Study Quality: Fair Conclusion Normal biventricular systolic function. Mild biatrial dilation. Mild TR, mild PI. There is no pericardial effusion. Electronically signed by : Ermelinda Cabello MD 01/31/2025 13:11:04
--- OUTSIDE RECORDS SUMMARY | 2025-01-30 15:17 | XMS_ITS | Clinical Summary ---
Author Organization [facility] Address [address] [place] [address] Care Team Providers Care Bus Repair Supervisor Name Role Phone Cyrus Hamilton Primary Care Provider [phone] Allergies Active Allergy Reactions Criticality Noted Date Comments Cefuroxime Nausea,Nausea And Vomiting High 3 Citalopram Hives,Itching Medium 07/23/2016 Penicillin G Other - please docum ent in the comment field Low 02/04/2024 Penicillins Unknown - Patient st ates they do not know rxn details Low 09/28/2012 Trazodone Unknown - Patient st ates they do not know rxn details Low 03/25/2017 Medications desonide (DesOwen) 0.05 % cream Take by mouth every 6 (six) hours. 6 Active lubiprostone (Amitiza) 24 MCG capsule Take by mouth every 6 (six) hours. 5 Active oxybutynin XL (Ditropan-XL) 5 MG 24 hr tablet Take by mouth every 6 (six) hours. 3 Active fluocinonide (Lidex) 0.05 % external solution Apply 60 application topically 2 (two) times a day. 1 Active DULoxetine (Cymbalta) [address] capsule Take 1 capsule (60 mg total) by mouth every night. 90 capsule 1 2 Active Additional Information Patient not taking.Reported on 08/12/2024 gabapentin (Neurontin) 100 MG capsule Take 1 capsule (100 mg total) by mouth 3 (three) times a day. 90 capsule 1 2 Active Additional Information Patient not taking.Reported on 08/12/2024 omeprazole (PriLOSEC) [address] capsule TAKE 1 CAPSULE BY MOUTH EVERY DAY 60 capsule 2 2 Active Additional Information Patient not taking.Reported on 08/12/2024 pantoprazole (Protonix) 40 MG EC tablet Take 1 tablet (40 mg) by mouth 1 (one) time each day. 2 Active furosemide (Lasix) 40 MG tablet Take by mouth. Activ e spironolactone (Aldactone) 25 MG tablet Take 1 tablet (25 mg) by mouth 1 (one) time each day. Active Ventolin HFA 108 (90 Base) MCG/ACT inhaler INHALE 2 INHALATIONS BY MOUTH EVERY 6 HOURS NEEDED FOR SHORTNESS OF BREATH OR WHEEZING. 2 Active cefuroxime (Ceftin) 500 MG tablet Take 500 mg by mouth 2 (two) times a day. for 7 days 2 Active doxycycline (Vibramycin) 100 MG capsule TAKE 1 CAPSULE BY MOUTH TWICE DAILY FOR 14 DAYS 2 Active gabapentin (Neurontin) 100 MG capsule 1 Active oxybutynin XL (Ditropan-XL) 10 MG 24 hr tablet Take 1 tablet (10 mg) by mouth 1 (one) time each day. 2 Active Symbicort 160-4.5 MCG/ACT inhaler Inhale 2 puffs 2 (two) times a day. 2 Active zolpidem (Ambien) 5 MG tabletIndications :Insomnia, unspecified type TAKE 1 TABLET BY MOUTH AT BEDTIME NEEDED INSOMNIA 30 tablet 2 3 Active Additional Information Patient not taking.Reported on 08/12/2024 glipiZIDE XL 5 MG 24 hr tablet Take 1 tablet (5 mg) by mouth 1 (one) time each day. 4 Active mupirocin (Bactroban) 2 % ointment APPLY SMALL AMOUNT TOPICALLY TO THE AFFECTED AREA THREE TIMES DAILY 4 Active predniSONE (Deltasone) 20 MG tablet Take 1 tablet (20 mg) by mouth 1 (one) time each day. 10 tablet 4 Active Additional Information Patient not taking.Reported on 08/12/2024 ergocalciferol 1.25 MG (98703 UT) capsule TAKE 1 CAPSULE BY MOUTH 1 TIME A MONTH 4 Active Farxiga 10 MG tablet Take 1 tablet (10 mg) by mouth daily. 4 Active docusate sodium (Colace) 100 MG capsule Take 1 capsule (100 mg) by mouth daily. 5 Active FeroSul 325 (65 Fe) MG tablet Take 1 tablet (325 mg) by mouth in the morning and 1 tablet (325 mg) before bedtime. 5 Active nitroglycerin (Antolin-Bid) 2 % ointmentIndicatio ns:Chilblain lupus erythematosus, subsequent encounter,Systemi c lupus erythematosus with organ system involvement (CMS/HCC),High risk medication use,Seropositive rheumatoid arthritis of multiple sites (CMS/HCC) Place 0.25 inches on the skin in the morning and 0.25 inches before bedtime. Apply to fingertips twice daily. 30 g 5 Active Belimumab (Benlysta) 200 MG/ML solution auto-injectorIndi cations:Systemic lupus erythematosus with organ system involvement (CMS/HCC) Inject 200 mg under the skin 1 (one) time per week. 4 mL 6 5 Active methotrexate 2.5 MG tabletIndications :Systemic lupus erythematosus with organ system involvement (CMS/HCC),Arthrit is TAKE 6 TABLETS(15 MG) BY MOUTH 1 TIME EVERY WEEK 72 tablet 1 5 Active hydroxychloroquin e (Plaquenil) 200 MG tabletIndications :Systemic lupus erythematosus with organ system involvement (CMS/HCC) TAKE 1 TABLET(200 MG) BY MOUTH TWICE DAILY 180 tablet 2 5 Active Active Problems Problem Noted Date Diagnosed Date Xerostomia 02/06/2021 High risk medication use 10/31/2020 Encounter for therapeutic drug monitoring 2020 Carpal tunnel syndrome 01/12/2020 Seropositive rheumatoid arthritis of multiple si brian 12/08/2018 Macromastia 11/05/2016 Headache 07/16/2016 Insomnia 06/10/2016 Alopecia 04/16/2015 Thrombocytopenia 08/15/2014 Weight gain due to medication 04/17/2014 Leucopenia 12/07/2013 DLE (discoid lupus erythematosus) 10/11/2013 Primary generalized (osteo)arthritis 12/21/2012 Depression 09/22/2012 Gastro-esophageal reflux disease without esophag itis 09/22/2012 Systemic lupus erythematosus with organ system i nvolvement 09/22/2012 Encounters Date Type Department Care Team Description 11/28/2024 Results Follow-Up [facility] Medicine Specialties [address] [place] [address] Stephanie Amaya MD 11/23/2024 Travel 11/14/2024 Telephone [facility] [address] [place] [address] Stephanie Amaya MD from Last 3 Months Immunizations Immunization Administration Dates Next Due Hep B, adult 08/01/2014,12/30/2013,11/30/2013 Influenza, seasonal, injectable 02/13/2009 Influenza, seasonal, injecta ble, preservative free 02/08/2024 Pneumococcal Polysaccharide PPV23 11/30/2013 TD (adult), 2 Lf tetanus tox oid, preservative free, adsorbed 02/22/1996 Tdap 02/08/2024,11/30/2013 Family History Medical History Relation Name Comments Lupus Mother Relation Name Status Comments Mother Social History Tobacco Use Types Packs/Day Years Used Date Smoking Tobacco: Never Passive Smoke Exposure: Never Smokeless Tobacco: Never Tobacco Cessation:Counseling Given: Not Answered Alcohol Use Standard Drinks/Week Comments Yes 0 (1 standard drink = 0.6 oz pure alcohol) Alcoholic Drinks/day: Minimum alcohol consumption PHQ-2 Answer Date Recorded Patient Health Questionnaire-2 Score 0 08/12/2024 PHQ-2A Answer Date Recorded Patient Health Questionnaire-2 Score 0 06/19/2022 Comments Unknown Sex and Gender Information Value Date Recorded Sex Assigned at Not on file Legal Sex Female 8:23 PM EDT Gender Identity Not on file Sexual Orientation Not on file Last Filed Vital Signs Vital Sign Reading Time Taken Comments Blood Pressure 107/73 08/12/2024 8:29 AM EDT Pulse 71 08/12/2024 8:29 AM EDT Temperature 36.6 C (97.8 F) 08/12/2024 8:29 AM EDT Respiratory Rate 16 08/12/2024 8:29 AM EDT Oxygen Saturation 100% 08/12/2024 8:29 AM EDT Inhaled Oxygen Concentration - - Weight 75.7 kg (166 lb 14.2 oz) 08/12/2024 8:29 AM EDT Height 165.1 cm (5' 5 ) 08/12/2024 8:29 AM EDT Body Mass Index 27.77 08/12/2024 8:29 AM EDT Plan of Treatment Upcoming Encounters Date Type Department Care Team (Late st Contact Info) Description 03/01/2025 11:30 AM EDT Office Visit [facility] Medicine Specialties [address] [place] [address] Stephanie Amaya MD [address] [place] [address] Health Maintenance Due Date Last Done Comments [facility]-HIV Screening 1974 [facility]-/Child/Adol SDOH Screenings 1974 [facility]- SDOH Screenings 1992 [facility]-Adult SDOH Screenings 1992 [facility]-Zoster Vaccines (1 of 2) 1993 CT Colonography 2019 Colonoscopy 2019 FIT-DNA 2019 FIT 2019 FOBT 2019 Sigmoidoscopy 2019 [facility]-Colorectal Cancer Screening 2019 [id number] Vaccine (3 - Pfizer risk series) 12/31/2020 12/03/2020, 11/05/2020 [facility]-Breast Cancer Screening 03/18/202404/26, 05/24/2020, 04/12/2018 [facility]-Pneumococcal Vaccine: 50+ Years (2 of 2 - PCV) 2024 11/30/2013 [facility]-Influenza Vaccine (#1) 2025 02/08/2024, [facility]-Depression Screening 08/12/2025 08/12/2024, 06/0 01/2021 [facility]-DTaP,Tdap,and Td Vaccines (3 - Td or Tdap) 02/07/2034 02/08/2024, 11/30/2013, 02/22/1996 [facility]-Hepatitis B Vaccines Completed 015, 12/30/2013, 11/30/2013 [facility]-Hepatitis C Screening Completed 09/17/2023, [facility]-Obesity Intervention Completed 025, 05/05/2024, 02/04/2024, Additional history exists HPV Vaccines Aged Out No longer eligi ble based on patient's age to complete this topic [facility]-HIB Vaccines Aged Out No longer e ligible based on patient's age to complete this topic [facility]-Hepatitis A Vaccines Aged Out No longer eligible based on patient's age to complete this topic [facility]-IPV Vaccines Aged Out No longer e ligible based on patient's age to complete this topic [facility]-Rotavirus Vaccines Aged Out No lo nger eligible based on patient's age to complete this topic Procedures Procedure Name Priority Date/Time Associated Diagnosis Comments URINALYSIS WITH REFLEX MICROSCOPIC Routine 11/23/2024 11:57 AM EDT Chilblain lupus erythematosus, subsequent encounter Systemic lupus erythematosus with organ system involvement (CMS/HCC) High risk medication use Seropositive rheumatoid arthritis of multiple sites (CMS/HCC) PROTEIN, URINE, RANDOM WITH CREATININE Routine 11/23/2024 11:57 AM EDT Chilblain lupus erythematosus, subsequent encounter Systemic lupus erythematosus with organ system involvement (CMS/HCC) High risk medication use Seropositive rheumatoid arthritis of multiple sites (CMS/HCC) DOUBLE-STRANDED DNA (DSDNA) ANTIBODY, IGG BY IFA (SO) Routine 11/23/2024 10:51 AM EDT Chilblain lupus erythematosus, subsequent encounter Systemic lupus erythematosus with organ system involvement (CMS/HCC) High risk medication use Seropositive rheumatoid arthritis of multiple sites (CMS/HCC) C3 COMPLEMENT Routine 11/23/2024 10:51 AM EDT Chilblain lupus erythematosus, subsequent encounter Systemic lupus erythematosus with organ system involvement (CMS/HCC) High risk medication use Seropositive rheumatoid arthritis of multiple sites (CMS/HCC) C4 COMPLEMENT Routine 11/23/2024 10:51 AM EDT Chilblain lupus erythematosus, subsequent encounter Systemic lupus erythematosus with organ system involvement (CMS/HCC) High risk medication use Seropositive rheumatoid arthritis of multiple sites (CMS/HCC) CBC WITH AUTO DIFFERENTIAL Routine 11/23/2024 10:51 AM EDT Chilblain lupus erythematosus, subsequent encounter Systemic lupus erythematosus with organ system involvement (CMS/HCC) High risk medication use Seropositive rheumatoid arthritis of multiple sites (CMS/HCC) COMPREHENSIVE METABOLIC PANEL, PLASMA Routine 11/23/2024 10:51 AM EDT Chilblain lupus erythematosus, subsequent encounter Systemic lupus erythematosus with organ system involvement (CMS/HCC) High risk medication use Seropositive rheumatoid arthritis of multiple sites (CMS/HCC) ACUTE HEPATITIS PANEL Routine 09/17/2023 2:13 PM EDT Systemic lupus erythematosus with organ system involvement (CMS/HCC) from Last 3 Months or Most Recently Relevant to Health Maintenance Results * Protein, Random, Urine with Creatinine (11/23/2024 11:57 AM EDT) Protein, Urine <6 mg/dL 11/23/2024 3:33 PM EDT [facility] Creatinine, Urine 58 mg/dL 11/23/2024 3:33 PM EDT [facility] Protein/Creati nine Ratio 11/23/2024 3:33 PM EDT [facility] Urine Urine specimen obtained by clean catch procedure / Unknown Non-blood Collection / Unknown 11/23/2024 11:57 AM EDT 11/23/2024 11:58 AM EDT us Brittani Loya MD LAB URINE ORDERABLES Fi nal Result [facility] [address] [place] [id number] * (ABNORMAL) Urinalysis with reflex microscopic (Culture NOT Included) (11/23/2024 11:57 AM EDT) Color, Urine Yellow LAB URINALYSIS - AUTOMATED METHOD 11/23/2024 3:02 PM EDT [facility] Clarity, Urine Clear LAB URINALYSIS - AUTOMATED METHOD 11/23/2024 3:02 PM EDT [facility] Spec [place], Urine 1.013 1.005 - 1.030 LAB URINALYSIS - AUTOMATED METHOD 11/23/2024 3:02 PM EDT [facility] pH, Urine 6.0 5.0 - 8.0 LAB URINALYSIS - AUTOMATED METHOD 11/23/2024 3:02 PM EDT [facility] Protein, Urine Trace(A) Negative mg/dL LAB URINALYSIS - AUTOMATED METHOD 11/23/2024 3:02 PM EDT [facility] Glucose, Urine 500(A) Negative mg/dL LAB URINALYSIS - AUTOMATED METHOD 11/23/2024 3:02 PM EDT [facility] Ketones, Urine Negative Negative mg/dL LAB URINALYSIS - AUTOMATED METHOD 11/23/2024 3:02 PM EDT [facility] Blood, Urine Negative Negative LAB URINALYSIS - AUTOMATED METHOD 11/23/2024 3:02 PM EDT [facility] Bilirubin, Urine Negative Negative LAB URINALYSIS - AUTOMATED METHOD 11/23/2024 3:02 PM EDT [facility] Urobilinogen, Urine 0.2 0.2 to 1.0 mg/dL LAB URINALYSIS - AUTOMATED METHOD 11/23/2024 3:02 PM EDT [facility] Leukocytes, Urine Negative Negative LAB URINALYSIS - AUTOMATED METHOD 11/23/2024 3:02 PM EDT [facility] Nitrite, Urine Negative Negative LAB URINALYSIS - AUTOMATED METHOD 11/23/2024 3:02 PM EDT [facility] Urine Urine specimen obtained by clean catch procedure / Unknown Non-blood Collection / Unknown 11/23/2024 11:57 AM EDT 11/23/2024 11:58 AM EDT us Brittani Loya MD LAB URINE ORDERABLES Fi nal Result [facility] [address] [place] [address] * (ABNORMAL) Anti-DNA antibody, double-stranded (11/23/2024 10:51 AM EDT) Double-Strande d DNA (dsDNA) Ab IgG IFA 1:320(H) <1:10 11/27/2024 5:45 AM EDT [facility] J[facility]) Blood Venous blood specimen / Unknown Venipuncture / Unknown 11/23/2024 10:51 AM EDT 11/23/2024 10:51 AM EDT Narrative [facility] RICHA CARPENTER) - 11/27/2024 5:45 AM EDT INTERPRETIVE INFORMATION: Double-Stranded DNA (dsDNA) Antibody, IgG by IFA (using Crithidia luciliae) Positivity for anti-double stranded DNA (anti-dsDNA) IgG antibody is a diagnostic criterion of systemic lupus erythematosus (SLE). The presence of the anti-dsDNA IgG antibody is identified by IFA titer (Crithidia luciliae indirect fluorescent test [ANILA]). ANILA is highly specific for SLE with a sensitivity of 50-60 percent. Some patients with early or inactive SLE may be positive for anti-dsDNA IgG by JASMYNE but negative by ANILA. If the ANILA result is negative but the patient has a positive JASMYNE and clinical suspicion remains, consider antinuclear antibody (ABRAHAN) testing by IFA. Additional information and recommendations for testing may be found at https://[employer]/content/bugxsavkhg-swaevf-qcwcyfyp. Performed By: [employer] [address] [place] [address] Workforce Development Vice President: Boom Zurita MD, PhD CLIA Number: [id number] Brittani Loya MD LAB BLOOD ORDERABLES Fi nal Result [facility]) [address] [place], [place] [id number] * (ABNORMAL) CBC and differential (11/23/2024 10:51 AM EDT) WBC Count 3.34(L) 3.70 - 10.30 10*3/uL LAB HEMATOLOGY METHOD 11/23/2024 11:17 AM EDT [facility] RBC Count 3.76(L) 3.90 - 5.20 10*6/uL LAB HEMATOLOGY METHOD 11/23/2024 11:17 AM EDT [facility] HGB 10.5(L) 11.2 - 15.7 g/dL LAB HEMATOLOGY METHOD 11/23/2024 11:17 AM EDT [facility] HCT 33.0(L) 34.0 - 45.0 % LAB HEMATOLOGY METHOD 11/23/2024 11:17 AM EDT [facility] Platelet Count 166 155 - 369 10*3/uL LAB HEMATOLOGY METHOD 11/23/2024 11:17 AM EDT [facility] MCV 88 79 - 98 fL LAB HEMATOLOGY METHOD 11/23/2024 11:17 AM EDT [facility] MCH 27.9 26.0 - 32.0 pg LAB HEMATOLOGY METHOD 11/23/2024 11:17 AM EDT [facility] MCHC 31.8 30.7 - 35.5 g/dL LAB HEMATOLOGY METHOD 11/23/2024 11:17 AM EDT [facility] RDW 15.8(H) 11.5 - 14.5 % LAB HEMATOLOGY METHOD 11/23/2024 11:17 AM EDT [facility] MPV 10.1 8.8 - 12.5 fL LAB HEMATOLOGY METHOD 11/23/2024 11:17 AM EDT [facility] nRBC 0.0 <=0.0 per 100 WBCs LAB HEMATOLOGY METHOD 11/23/2024 11:17 AM EDT [facility] Differential Type Automated LAB HEMATOLOGY METHOD 11/23/2024 11:17 AM EDT [facility] Neutrophils % 70 % LAB HEMATOLOGY METHOD 11/23/2024 11:17 AM EDT [facility] Lymphocytes % 12 % LAB HEMATOLOGY METHOD 11/23/2024 11:17 AM EDT [facility] Monocytes % 15 % LAB HEMATOLOGY METHOD 11/23/2024 11:17 AM EDT [facility] Eosinophils % 1 % LAB HEMATOLOGY METHOD 11/23/2024 11:17 AM EDT [facility] Basophils % 1 % LAB HEMATOLOGY METHOD 11/23/2024 11:17 AM EDT [facility] Immature Granulocytes % 1 % LAB HEMATOLOGY METHOD 11/23/2024 11:17 AM EDT [facility] Neutrophils Absolute 2.37 1.60 - 6.10 10*3/uL LAB HEMATOLOGY METHOD 11/23/2024 11:17 AM EDT [facility] Lymphocytes Absolute 0.41(L) 1.20 - 3.90 10*3/uL LAB HEMATOLOGY METHOD 11/23/2024 11:17 AM EDT [facility] Monocytes Absolute 0.49 0.30 - 0.90 10*3/uL LAB HEMATOLOGY METHOD 11/23/2024 11:17 AM EDT [facility] Eosinophils Absolute 0.03 0.00 - 0.50 10*3/uL LAB HEMATOLOGY METHOD 11/23/2024 11:17 AM EDT [facility] Basophils Absolute 0.02 0.00 - 0.10 10*3/uL LAB HEMATOLOGY METHOD 11/23/2024 11:17 AM EDT [facility] Immature Granulocytes Absolute 0.02 0.00 - 0.06 10*3/uL LAB HEMATOLOGY METHOD 11/23/2024 11:17 AM EDT [facility] Blood Venous blood specimen / Unknown Venipuncture / Unknown 11/23/2024 10:51 AM EDT 11/23/2024 10:51 AM EDT Narrative [facility] - 11/23/2024 11:17 AM EDT Therapeutic decision making should be based on absolute values, rather than percentages. Brittani Loya MD LAB BLOOD ORDERABLES Fi nal Result Performing Organization Address City/[facility]/ZIP Co de Phone Number [facility] [address] [place] [address] * (ABNORMAL) C3 complement (11/23/2024 10:51 AM EDT) C3 Complement 82(L) 84 - 166 mg/dL 11/23/2024 4:21 PM EDT [facility] Blood Venous blood specimen / Unknown Venipuncture / Unknown 11/23/2024 10:51 AM EDT 11/23/2024 10:51 AM EDT Brittani Loya MD LAB BLOOD ORDERABLES Fi nal Result [facility] [address] [place] [address] * (ABNORMAL) C4 complement (11/23/2024 10:51 AM EDT) C4 Complement 12(L) 13 - 36 mg/dL 11/23/2024 4:21 PM EDT [facility] Blood Venous blood specimen / Unknown Venipuncture / Unknown 11/23/2024 10:51 AM EDT 11/23/2024 10:51 AM EDT us Brittani Loya MD LAB BLOOD ORDERABLES Fi nal Result [facility] [address] [place] [address] * (ABNORMAL) Comprehensive metabolic panel (11/23/2024 10:51 AM EDT) Glucose, Plasma 104(H) 74 - 99 mg/dL 11/23/2024 3:27 PM EDT [facility] BUN, Plasma 9 7 - 21 mg/dL 11/23/2024 3:27 PM EDT [facility] Creatinine, Plasma 1.10 0.60 - 1.10 mg/dL 11/23/2024 3:27 PM EDT [facility] BUN/Creatinine Ratio 8 11/23/2024 3:27 PM EDT [facility] Sodium, Plasma 137 136 - 145 mmol/L 11/23/2024 3:27 PM EDT [facility] Potassium, Plasma 3.9 3.6 - 4.9 mmol/L 11/23/2024 3:27 PM EDT [facility] Chloride, Plasma 101 97 - 107 mmol/L 11/23/2024 3:27 PM EDT [facility] CO2, Plasma 24 22 - 29 mmol/L 11/23/2024 3:27 PM EDT [facility] Anion Gap 12 6 - 16 mmol/L 11/23/2024 3:27 PM EDT [facility] Total Calcium, Plasma 9.3 8.9 - 10.2 mg/dL 11/23/2024 3:27 PM EDT [facility] Total Protein 8.0(H) 6.3 - 7.9 g/dL 11/23/2024 3:27 PM EDT [facility] Albumin, Plasma 4.3 3.5 - 5.2 g/dL 11/23/2024 3:27 PM EDT [facility] AST, Plasma 31 10 - 35 U/L 11/23/2024 3:27 PM EDT [facility] ALT, Plasma 20 10 - 35 U/L 11/23/2024 3:27 PM EDT [facility] Alkaline Phosphatase, Plasma 90 35 - 104 U/L 11/23/2024 3:27 PM EDT [facility] Total Bilirubin, Plasma 0.4 0.2 - 1.1 mg/dL 11/23/2024 3:27 PM EDT [facility] eGFRcr 61.3 mL/min/1.7 3m*2 11/23/2024 3:27 PM EDT [facility] Comment:Reported eGFRcr in m L/min/1.73m2 is based the CKD-EPI 2020 equation that does not use a race coefficient. Blood Venous blood specimen / Unknown Venipuncture / Unknown 11/23/2024 10:51 AM EDT 11/23/2024 10:51 AM EDT Brittani Loya MD LAB BLOOD ORDERABLES Fi nal Result [facility] [address] [place] [address] * Hepatitis panel, acute (09/17/2023 2:13 PM EDT) Hepatitis B Surf Antigen Negative Negative 09/17/2023 5:48 PM EDT [facility] Hepatitis C Antibody Negative Negative 09/17/2023 5:48 PM EDT [facility] Hepatitis A Antibody IgM Negative Negative 09/17/2023 5:48 PM EDT [facility] Hepatitis B Core Antibody IgM Negative Negative 09/17/2023 5:48 PM EDT [facility] Blood Venous blood specimen / Unknown Venipuncture / Unknown 09/17/2023 2:13 PM EDT 09/17/2023 2:15 PM EDT Ciarra Bullock MD LAB BLOOD ORDERABLES Final Re sult [facility] [address] [place] [address] from Last 3 Months or Most Recently Relevant to Health Maintenance Insurance [employer] [facility] MEDICAID Care Teams Bus Repair Supervisor Relationship Specialty Start Date End Date Cyrus Hamilton [address] [place] [address] PCP - General Family Medicine 09/17/23
--- OUTSIDE RECORDS SUMMARY | 2025-01-30 15:17 | XMS_ITS | Encounter Summary ---
Author Organization [facility] Address [address] [place] [address] Care Team Providers Care Hplc Chemist Name Role Phone Cyrus Hamilton Primary Care Provider [phone] Encounter Details Date Type Department Care Team (Late st Contact Info) Description 11/28/2024 Results Follow-Up [facility] Medicine Specialties [address] [place] [address] Stephanie Amaya MD [address] [place] [address] Social History Tobacco Use Types Packs/Day Years Used Date Smoking Tobacco: Never Passive Smoke Exposure: Never Smokeless Tobacco: Never Alcohol Use Standard Drinks/Week Comments Yes 0 [...] on file Sexual Orientation Not on file documented as of this encounter Plan of Treatment Upcoming Encounters Date Type Department Care Team (Late st Contact Info) Description 03/01/2025 11:30 AM EDT Office Visit [facility] Medicine Specialties [address] [place] [address] Stephanie Amaya MD [address] [place] [phone] documented as of this encounter Visit Diagnoses Not on filedocumented in this encounter Additional Health Concerns Assessment Noted Time A fall risk assessment has been complete d for the patient 08/12/2024 8:39 AM EDT A Body Mass Index follow-up plan has been documented for the patient 08/12/2024 3:51 PM EDT documented as of this encounter Care Teams Hplc Chemist Relationship Specialty Start Date End Date Cyrus Hamilton [address] [place] [phone] PCP - General Family Medicine 09/17/23 documented as of this encounter
--- OUTSIDE RECORDS SUMMARY | 2025-01-30 15:17 | XMS_ITS | Clinical Summary ---
Author Organization [facility] Address [address] [place] [address] Care Team Providers Care Neuroradiologist Name Role Phone Randy Leigh TITI Primary [facility] Provi jenny Allergies Active Allergy Reactions Criticality Noted Date Comments Amoxicillin Other (See Comments),Hives 09/07/2024 Cefuroxime Nausea Only,Nausea And Vomiting High 11/06/2022 Citalopram Hives,Itching Medium 07/23/2016 Penicillins Rash Low 09/28/2012 Other reaction(s): Unknown Trazodone And Nefazodone Rash Low 03/19/2017 Medications hydroxychloroqui ne (PLAQUENIL) 200 MG tablet 0 7 Active BENLYSTA 200 MG/ML solution auto-injector 8 Active spironolactone (ALDACTONE) 25 MG tablet Take 1 tablet by mouth Daily. 2 Active pantoprazole (PROTONIX) 40 MG EC tablet Take 1 tablet by mouth Daily. for GERD 2 Active furosemide (LASIX) 40 MG tablet Take 1 tablet by mouth Daily. 2 Active Ventolin HFA 108 (90 Base) MCG/ACT inhaler INHALE 2 INHALATIONS BY MOUTH EVERY 6 HOURS NEEDED FOR SHORTNESS OF BREATH OR WHEEZING. 2 Active mupirocin (BACTROBAN) 2 % ointment Apply 1 Application topically to the appropriate area as directed As Needed. 4 Active methotrexate 2.5 MG tablet Take 6 tablets by mouth. 4 Active glipizide (GLUCOTROL XL) 5 MG ER tablet Take 1 tablet by mouth Daily. 4 Active folic acid (FOLVITE) 1 MG tablet Take 1 tablet by mouth Daily. 3 Active dapagliflozin Propanediol (Farxiga) 10 MG tablet Take 10 mg by mouth Daily. 4 Active Symbicort 160-4.5 MCG/ACT inhaler Inhale 2 puffs 2 (Two) Times a Day. 4 Active Sodium Sulfate-Mag Sulfate-KCl (SUTAB) 7392-540-316 MG tablet Take 24 tablets by mouth Take As Directed. 24 tablet 4 Active Additional Information Patient not taking.Reported on 11/23/2024 BinaxGONZALESW COVID-19 Ag Home Test kit TEST DIRECTED TODAY 5 Active Colace 100 MG capsule Take 1 capsule every day by oral route for 30 days. 5 Active vitamin D (ERGOCALCIFEROL) 1.25 MG (13783 UT) capsule capsule TAKE 1 CAPSULE BY MOUTH 1 TIME A MONTH Active FeroSul 325 (65 Fe) MG tablet Take 1 tablet by mouth. 5 Active gabapentin (NEURONTIN) 100 MG capsule Take 1 capsule by mouth 2 (Two) Times a Day. Active nitroglycerin (NITROSTAT) 2 % ointment Place 0.25 inches on the skin as directed by provider. 5 Active cyanocobalamin 1000 MCG/ML injection 1ml injection every day for 1 week, 1ml every week for 1 month, then 1 ml every month. 5 Active oxybutynin XL (Ditropan XL) 10 MG 24 hr tablet Take 1 tablet by mouth Daily. 90 tablet 1 5 Active Active Problems Problem Noted Date Diagnosed Date Anemia 09/07/2024 Slow transit constipation 04/26/2020 Lupus 03/23/2018 Low vitamin D level 03/19/2017 Mixed stress and urge urinary incontinence 03/19 Resolved Problems Problem Noted Date Diagnosed Date Resolved Date S/P laparoscopic assisted va ginal hysterectomy (LAVH) 200703/19/2017 04/26/2020 Well woman exam with routine gynecological exam 08/01/2016 04/26/2020 Overview (08/01/2016): SCREENING TESTS Year 2011 2012 2013 2014 2015 2016 2017 2018 2019 2020 2021 2022 2023 2024 2025 2026 2027 2028 2029 2030 Age PAP HPV high risk JOLLY [Birads] JARON score Colonoscopy DEXA [T-score] Frax [hip/any] Lipids [LDL / HDL / TG] Vitamin D Ovarian Screen Enter the month test was performed. If month not known, enter X' Black numbers = normal results Red numbers = abnormal results Black X = patient reported normal Red X - patient reported abnormal Referred by: Profession: Other info: Encounters Date Type Department Care Team Description 11/23/2024 9:40 AM EDT Office Visit [facility] O[facility]YN [address] [place] [address] Susan Renteria MD Well woman exam with routine gynecological exam (Primary Dx) 11/23/2024 Travel from Last 3 Months Family History Medical History Relation Name Comments Asthma Father 1997 Ovarian cancer Maternal Aunt Rose 50's Ovarian cancer Maternal Grandmother Ivon 70's Lupus Mother 1994 Breast cancer Neg Hx Colon cancer Neg Hx Osteoporosis Neg Hx Uterine cancer Neg Hx Relation Name Status Comments Father Half-Sister 1 pat Alive Half-Sister 2 pat Alive Half-Sister 3 pat Alive Half-Sister 4 pat Alive Half-Sister 5 pat Alive Maternal Aunt Rose Maternal Grandmother Ivon Mother Social History Tobacco Use Types Packs/Day Years Used Date Smoking Tobacco: Never Smokeless Tobacco: Never Tobacco Cessation:Counseling Given: No Alcohol Use Standard Drinks/Week Comments No 0 (1 standard drink = 0.6 oz pur e alcohol) Comments No Sex and Gender Information Value Date Recorded Sex Assigned at Female 11/19/2024 4:55 PM EDT Legal Sex Female 12:52 PM EDT Gender Identity Not on file Sexual Orientation Not on file Last Filed Vital Signs Vital Sign Reading Time Taken Comments Blood Pressure 106/68 11/23/2024 9:26 AM EDT Pulse - - Temperature - - Respiratory Rate 16 05/10/2021 1:22 PM EST Oxygen Saturation - - Inhaled Oxygen Concentration - - Weight 72.2 kg (159 lb 3.2 oz) 11/23/2024 9:26 A M EDT Height 163.8 cm (5' 4.49 ) 11/23/2024 9:26 AM ED T Body Mass Index 26.91 11/23/2024 9:26 AM EDT Plan of Treatment Upcoming Encounters Date Type Department Care Team (Late st Contact Info) Description 11/29/2025 9:40 AM EDT Office Visit [facility] OBGYN [address] [place] [address] Susan Renteria MD [address] [place] [address] Health Maintenance Due Date Last Done Comments DIABETIC EYE EXAM 1984 DIABETIC FOOT EXAM 1984 URINE MICROALBUMIN-CREATININ E RATIO (uACR) 1984 Pneumococcal Vaccine 50+ (2 of 2 - PCV) 11/30/2014 11/30/2013 ANNUAL PHYSICAL 12/24/2016 HEMOGLOBIN A1C 12/24/2016 COLOGUARD 2019 COLON CANCER SCREENING 5 YEA R SIGMOID[address]COPY [address] CT COLONOGRAPHY 2019 FECAL OCCULT BLOOD TEST 2019 FIT Testing (1 year) 2019 MAMMOGRAM 05/24/2022 05/24/2020, 03/25, 04/12/2018, Additional history exists ZOSTER VACCINE (1 of 2) 2024 COVID-19 Vaccine (3 - 2024-2 6 season) 2025 12/03/2020, 11/05/2020 INFLUENZA VACCINE 02/22/2025 02/08/2024, 02/13/2009 Annual Gynecologic Pelvic an d Breast Exam 11/24/2025 11/23/2024 COLONOSCOPY 12/14/2033 12/15/2023, 11/23, 11/23/2023, Additional history exists COLORECTAL CANCER SCREENING 12/14/2033 TDAP/TD VACCINES (4 - Td or Tdap) 02/07/2034 02/08/2024, 11/30/2013, 02/22/1996 Hepatitis B Completed 08/01/2014, 0812/2013, 11/30/2013 HEPATITIS C SCREENING Completed 09/17/2023, 022 Procedures Procedure Name Priority Date/Time Associated Diagnosis Comments SCANNED - COLONOSCOPY 12/15/2023 MAMMO SCREENING DIGITAL TOMOSYNTHESIS BILATERAL W CAD Routine 05/24/2020 9:14 AM EST Encounter for screening mammogram for malignant neoplasm of breast from Last 3 Months or Most Recently Relevant to Health Maintenance Results * Colonoscopy, Scan (12/15/2023) us Curry Almonte MD CHART REVIEW TABS Final Result * Mammo Screening Digital Tomosynthesis Bilateral With CAD (05/24/2020 9:14 AM EST) Anatomical Region Laterality Modality Breast N/A Mammography 06/03/2020 12:2 0 PM EST Impressions 06/03/2020 12:20 PM EST No findings suspicious for malignancy. ACR BI-RADS CATEGORY: 1, NEGATIVE RECOMMENDATION: Yearly mammogram, yearly clinical breast exam, and encourage self breast awareness. CAD was used. The standard false negative rate of mammography is between 10% and 25%. Complex patterns or increased breast density will markedly elevate the false negative rate of mammography. A letter, in lay terminology, with the results of this exam will be mailed to the patient. At our facility, a triangular marker is positioned over a palpable area of concern indicated by the patient. A nondalton marker is placed over a visible skin lesion. A linear marker indicates a scar. If there is a palpable area of concern, biopsy should be considered regardless of imaging findings. This report was finalized on 06/03/2020 12:[address] Zenaida Villanueva MD. Narrative 06/03/2020 12:20 PM EST DIGITAL SCREENING MAMMOGRAM WITH TOMOSYNTHESIS HISTORY: Routine screening. Interval 21 pound weight loss. IMAGE COMPARISON: 04/12/2018, 08/16/2014. TECHNIQUE: Low dose full field digital breast tomosynthesis imaging was performed with 2D and 3D acquisitions consisting of bilateral CC and MLO views. FINDINGS: There are scattered areas of fibroglandular density. The fibroglandular pattern appears stable accounting for the interval weight loss. There is no mass, worrisome microcalcifications, or architectural distortion to suggest development of malignancy. Matt Jensen MD IMG MAMMOGRAPHY ORDERABLES Final Result from Last 3 Months or Most Recently Relevant to Health Maintenance Insurance [facility] Care Teams Neuroradiologist Relationship Specialty Start Date End Date Randy Leigh APRN [facility] [id number] PCP - General Nurse Practitioner 08/19/24
== END 2025-01-30 23:59 | disposition home or self-care (01) ==
LOC: RT 15:15
PROVIDERS: PCP Nurse Practitioner Family; Visit Provider Nurse Practitioner Family
DX: I08.8 Other rheumatic multiple valve diseases (principal); I31.4 Cardiac tamponade; Z86.79 Personal history of other diseases of the circulatory system
CPT/HCPCS: 93306

== ENCOUNTER 2025-05-24 10:18 | Outpatient (CLI) | payer OTHER, SELFPAY ==
--- OUTSIDE RECORDS SUMMARY | 2025-04-10 15:00 | XMS_ITS | Encounter Summary ---
Author Organization Healthcare Address [address] [place] [address] Care Team Providers Care Prosthodontist Name Role Phone Randy Leigh APRN Primary Care Provider + Reason for Referral * Consultation (Routine) - Closed Specialty Diagnoses / Procedures Referred By Renettaac t Referred To Contact Diagnoses LTBI (latent tuberculosis infection) Lily Eaton PA [address] [facility] [address] [place] [address] Phone: tel: fax: Referral ID Status Reason Start Date Expiration Date Visits Re quested Visits Authorized [id number] Closed 04/10/2025 10/10/2026 1 1 Reason for Visit * Consultation (Urgent) - Closed Specialty Diagnoses / Procedures Referred By Contbernie t Referred To Contact Infectious Diseases Diagnoses Positive 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 Damari Lopez DO [address] [facility] [address] [place] [address] Phone: tel: fax: Referral ID Status Reason Start Date Expiration Date V isits Requested Visits Authorized [id number] Closed Specialty Services Required 03/03/2025 09/02/2026 1 1 Encounter Details Date Type Department Care Team (Late st Contact Info) Description 04/10/2025 3:00 PM EST Office Visit [facility] [address] [place] [address] Lily Eaton PA [address] [facility] [address] [place] [address] LTBI (latent tuberculosis infection) (Primary Dx) Social History Tobacco Use Types Packs/Day Years Used Date Smoking Tobacco: Never Passive Smoke Exposure: Never Smokeless Tobacco: Never Alcohol Use Standard Drinks/Week Comments Yes 0 (1 standard drink = 0.6 oz pure alcohol) Alcoholic Drinks/day: Minimum alcohol consumption PHQ-2 Answer Date Recorded Patient Health Questionnaire-2 Score 0 04/10/2025 PHQ-2A Answer Date Recorded Patient Health Questionnaire-2 Score 0 06/19/2022 Comments Unknown Sex and Gender Information Value Date Recorded Sex Assigned at Not on file Legal Sex Female 8:23 PM EDT Gender Identity Not on file Sexual Orientation Not on file documented as of this encounter Last Filed Vital Signs Vital Sign Reading Time Taken Comments Blood Pressure 113/65 04/10/2025 2:49 PM EST Pulse 70 04/10/2025 2:49 PM EST Temperature 37.1 C (98.7 F) 04/10/2025 2:49 PM EST Respiratory Rate - - Oxygen Saturation 99% 04/10/2025 2:49 PM EST Inhaled Oxygen Concentration - - Weight 75.3 kg (166 lb 0.1 oz) 04/10/2025 2:49 P M EST Height 165.1 cm (5' 5 ) 04/10/2025 2:49 PM EST Body Mass Index 27.62 04/10/2025 2:49 PM EST documented in this encounter Functional Status * BP Answer Date of Assessment Author 113/65 04/10/2025 2:49 PM EST Diann Eastman * Temp Answer Date of Assessment Author 98.7 04/10/2025 2:49 PM EST Diann Eastman * Temp src Answer Date of Assessment Author Oral 04/10/2025 2:49 PM EST Diann Eastman * Pulse Answer Date of Assessment Author 70 04/10/2025 2:49 PM EST Diann Eastman * SpO2 Answer Date of Assessment Author 99 04/10/2025 2:49 PM Diann Flores * Height Answer Date of Assessment Author 65 04/10/2025 2:49 PM EST Diann Eastman * Weight Answer Date of Assessment Author 2656.1 04/10/2025 2:49 PM Diann Flores * BMI (Calculated) Answer Date of Assessment Author 27.7 04/10/2025 2:49 PM EST Diann Eastman * Percent Excess Weight Loss Answer Date of Assessment Author 0 04/10/2025 2:49 PM EST Diann Eastman * Total Weight Change Percent Answer Date of Assessment Author 2222 04/10/2025 2:49 PM EST Diann Eastman * Weight Change Since Preop Answer Date of Assessment Author 75.28 04/10/2025 2:49 PM Diann Flores * Initial Excess Weight Answer Date of Assessment Author -56.7 04/10/2025 2:49 PM Diann Flores * IBW in lbs (Bariatric) Answer Date of Assessment Author 125 04/10/2025 2:49 PM Diann Flores * Weight Change Since Last Visit Answer Date of Assessment Author 75.28 04/10/2025 2:49 PM Diann Flores * IBW in kg (Bariatric) Answer Date of Assessment Author 56.7 04/10/2025 2:49 PM Diann Flores * Percent of IBW Answer Date of Assessment Author 4,684.48 04/10/2025 2:49 PM Diann Flores * EBW (kg) Answer Date of Assessment Author 2,654.49 04/10/2025 2:49 PM Diann Flores * EBW (lbs) Answer Date of Assessment Author 2,648.29 04/10/2025 2:49 PM Diann Flores * Weight Change 24 hrs Answer Date of Assessment Author 1.7 04/10/2025 2:49 PM Diann Flores * Depression Screening Question Answer Date of Assessment Author Will the patient answer the depression risk questions? Yes 04/10/2025 2:51 PM Diann Flores * BSA (Calculated - sq m) Answer Date of Assessment Author 1.86 04/10/2025 2:49 PM Diann Flores * BMI (Calculated) Answer Date of Assessment Author 27.62 04/10/2025 2:49 PM Diann Flores * BP Location Answer Date of Assessment Author Left arm 04/10/2025 2:49 PM Diann Flores * IBW/kg (Calculated) Male Answer Date of Assessment Author 61.5 04/10/2025 2:49 PM Diann Flores * IBW/kg (Calculated) Female Answer Date of Assessment Author 57 04/10/2025 2:49 PM Diann Flores * IBW/kg (Calculated) Answer Date of Assessment Author 57 04/10/2025 2:49 PM Diann Flores * Over the past 2 weeks, how often have you been bothered by any of the following problems? Question Answer Date of Assessment Author Little interest or pleasure in doing things Not at all 04/10/2025 2:51 PM Diann Flores Feeling down, depressed, or hopeless Not at all 04/10/2025 2:51 PM Diann Flores Patient Health Questionnaire -2 Score 0 04/10/2025 2:51 PM Diann Flores * Weight in (lb) to have BMI = 25 Answer Date of Assessment Author 149.9 04/10/2025 2:49 PM Diann Flores * BMI (Calculated) Answer Date of Assessment Author 27.7 04/10/2025 2:49 PM Diann Flores * Percent Excess Weight Loss Answer Date of Assessment Author 0 04/10/2025 2:49 PM Diann Flores * Weight Change Since Preop Answer Date of Assessment Author 75.3 04/10/2025 2:49 PM Diann Flores * Initial Excess Weight Answer Date of Assessment Author -56.7 04/10/2025 2:49 PM Diann Flores * IBW in kg (Bariatric) Answer Date of Assessment Author 56.7 04/10/2025 2:49 PM Diann Flores * IBW in lb (Bariatric) Answer Date of Assessment Author 125 04/10/2025 2:49 PM Diann Flores * Weight Change Since Last Visit Answer Date of Assessment Author 75.3 04/10/2025 2:49 PM Diann Flores * Percent of IBW Answer Date of Assessment Author 132.81 04/10/2025 2:49 PM Diann Flores * EBW (kg) Answer Date of Assessment Author 18.58 04/10/2025 2:49 PM Diann Flores * EBW (lb) Answer Date of Assessment Author 41.01 04/10/2025 2:49 PM Diann Flores * Difference in Weight Since Last Visit Answer Date of Assessment Author 1.7 04/10/2025 2:49 PM Diann Flores * Temp (in Celsius) for ALLAKAKET IV Answer Date of Assessment Author 37.1 04/10/2025 2:49 PM Diann Flores * IBW/kg (Calculated) Answer Date of Assessment Author 57 04/10/2025 2:49 PM Diann Flores * Adult Low Range Vt 6mL/kg Answer Date of Assessment Author 342 04/10/2025 2:49 PM Diann Flores * Adult Moderate Range Vt 8mL/kg Answer Date of Assessment Author 456 04/10/2025 2:49 PM Diann Flores * Adult High Range Vt 10mL/kg Answer Date of Assessment Author 570 04/10/2025 2:49 PM Diann Flores * Pain Score Answer Date of Assessment Author 0 04/10/2025 2:53 PM Diann Flores * Patient Position Answer Date of Assessment Author Sitting 04/10/2025 2:49 PM Diann Flores * Pain Screening/Additional Assessments Question Answer Date of Assessment Author Pain Screening/Assessments Pain Screening 04/10/2025 2 :53 PM Diann Flores * Pain Screening Answer Date of Assessment Author 0-10 04/10/2025 2:53 PM Diann Flores * BP Answer Date of Assessment Author 113/65 04/10/2025 2:49 PM Diann Flores * Temp Answer Date of Assessment Author 98.7 04/10/2025 2:49 PM Diann Flores * Temp src Answer Date of Assessment Author Oral 04/10/2025 2:49 PM Diann Flores * Pulse Answer Date of Assessment Author 70 04/10/2025 2:49 PM Diann Flores * SpO2 Answer Date of Assessment Author 99 04/10/2025 2:49 PM Diann Flores * Height Answer Date of Assessment Author 65 04/10/2025 2:49 PM Diann Flores * Weight Answer Date of Assessment Author 2656.1 04/10/2025 2:49 PM Diann Flores * BSA (Calculated - sq m) Answer Date of Assessment Author 1.86 04/10/2025 2:49 PM Diann Flores * BMI (Calculated) Answer Date of Assessment Author 27.62 04/10/2025 2:49 PM Diann Flores * BP Location Answer Date of Assessment Author Left arm 04/10/2025 2:49 PM Diann Flores * Over the past 2 weeks, how often have you been bothered by any of the following problems? Question Answer Date of Assessment Author Little interest or pleasure in doing things Not at all 04/10/2025 2:51 PM Diann Flores Feeling down, depressed, or hopeless Not at all 04/10/2025 2:51 PM Diann Flores Patient Health Questionnaire -2 Score 0 04/10/2025 2:51 PM Diann Flores * Weight in (lb) to have BMI = 25 Answer Date of Assessment Author 149.9 04/10/2025 2:49 PM Diann Flores * Pain Score Answer Date of Assessment Author 0 04/10/2025 2:53 PM Diann Flores * Patient Position Answer Date of Assessment Author Sitting 04/10/2025 2:49 PM Diann Flores documented as of this encounter Mental Status * BP Answer Entry Date Author 113/65 04/10/2025 2:49 PM Diann Flores * Temp Answer Entry Date Author 98.7 04/10/2025 2:49 PM Diann Flores * Temp src Answer Entry Date Author Oral 04/10/2025 2:49 PM Diann Flores * Pulse Answer Entry Date Author 70 04/10/2025 2:49 PM Diann Flores * SpO2 Answer Entry Date Author 99 04/10/2025 2:49 PM EST Diann Eastman * Height Answer Entry Date Author 65 04/10/2025 2:49 PM EST Diann Eastman * Weight Answer Entry Date Author 2656.1 04/10/2025 2:49 PM EST Waleska Eastmanra * BMI (Calculated) Answer Entry Date Author 27.7 04/10/2025 2:49 PM EST Diann Eastman * Percent Excess Weight Loss Answer Entry Date Author 0 04/10/2025 2:49 PM EST Waleska Eastmanra * Total Weight Change Percent Answer Entry Date Author 2222 04/10/2025 2:49 PM EST Waleska Eastmanra * Weight Change Since Preop Answer Entry Date Author 75.28 04/10/2025 2:49 PM EST Diann Eastman * Initial Excess Weight Answer Entry Date Author -56.7 04/10/2025 2:49 PM EST Diann Eastman * IBW in lbs (Bariatric) Answer Entry Date Author 125 04/10/2025 2:49 PM Diann Flores * Weight Change Since Last Visit Answer Entry Date Author 75.28 04/10/2025 2:49 PM EST Diann Eastman * IBW in kg (Bariatric) Answer Entry Date Author 56.7 04/10/2025 2:49 PM Diann Flores * Percent of IBW Answer Entry Date Author 4,684.48 04/10/2025 2:49 PM Diann Flores * EBW (kg) Answer Entry Date Author 2,654.49 04/10/2025 2:49 PM Diann Flores * EBW (lbs) Answer Entry Date Author 2,648.29 04/10/2025 2:49 PM EST Diann Eastman * Weight Change 24 hrs Answer Entry Date Author 1.7 04/10/2025 2:49 PM EST Diann Eastman * Depression Screening Question Answer Entry Date Author Will the patient answer the depression risk questions? Yes 04/10/2025 2:51 PM Diann Flores * BSA (Calculated - sq m) Answer Entry Date Author 1.86 04/10/2025 2:49 PM Diann Flores * BMI (Calculated) Answer Entry Date Author 27.62 04/10/2025 2:49 PM Diann Flores * BP Location Answer Entry Date Author Left arm 04/10/2025 2:49 PM Diann Flores * IBW/kg (Calculated) Male Answer Entry Date Author 61.5 04/10/2025 2:49 PM Diann Flores * IBW/kg (Calculated) Female Answer Entry Date Author 57 04/10/2025 2:49 PM Diann Flores * IBW/kg (Calculated) Answer Entry Date Author 57 04/10/2025 2:49 PM Diann Flores * Over the past 2 weeks, how often have you been bothered by any of the following problems? Question Answer Entry Date Author Little interest or pleasure in doing things Not at all 04/10/2025 2:51 PM Diann Flores Feeling down, depressed, or hopeless Not at all 04/10/2025 2:51 PM Diann Flores Patient Health Questionnaire -2 Score 0 04/10/2025 2:51 PM Diann Flores * [facility] HRSN Mental Health Concern Calculation Answer Entry Date Author 3 04/10/2025 2:51 PM Diann Flores * Restart Pain Assessment Timer Answer Entry Date Author Yes 04/10/2025 2:53 PM Diann Flores * Weight in (lb) to have BMI = 25 Answer Entry Date Author 149.9 04/10/2025 2:49 PM Diann Flores * BMI (Calculated) Answer Entry Date Author 27.7 04/10/2025 2:49 PM Diann Flores * Percent Excess Weight Loss Answer Entry Date Author 0 04/10/2025 2:49 PM Diann Flores * Weight Change Since Preop Answer Entry Date Author 75.3 04/10/2025 2:49 PM Diann Flores * Initial Excess Weight Answer Entry Date Author -56.7 04/10/2025 2:49 PM Diann Flores * IBW in kg (Bariatric) Answer Entry Date Author 56.7 04/10/2025 2:49 PM Diann Flores * IBW in lb (Bariatric) Answer Entry Date Author 125 04/10/2025 2:49 PM EST Jaren, Diann * Weight Change Since Last Visit Answer Entry Date Author 75.3 04/10/2025 2:49 PM EST JarenWaleska almontera * Percent of IBW Answer Entry Date Author 132.81 04/10/2025 2:49 PM EST Jaren, Diann * EBW (kg) Answer Entry Date Author 18.58 04/10/2025 2:49 PM EST JarenWaleska almontera * EBW (lb) Answer Entry Date Author 41.01 04/10/2025 2:49 PM EST Jaren, Diann * Difference in Weight Since Last Visit Answer Entry Date Author 1.7 04/10/2025 2:49 PM EST Diann Eastman * Temp (in Celsius) for ALLAKAKET IV Answer Entry Date Author 37.1 04/10/2025 2:49 PM EST Diann Eastman * IBW/kg (Calculated) Answer Entry Date Author 57 04/10/2025 2:49 PM EST Diann Eastman * Adult Low Range Vt 6mL/kg Answer Entry Date Author 342 04/10/2025 2:49 PM EST JarenWaleska almontera * Adult Moderate Range Vt 8mL/kg Answer Entry Date Author 456 04/10/2025 2:49 PM EST JarenWaleska almontera * Adult High Range Vt 10mL/kg Answer Entry Date Author 570 04/10/2025 2:49 PM EST Diann Eastman * Pain Score Answer Entry Date Author 0 04/10/2025 2:53 PM EST Diann Eastman * BP Cuff Size Answer Entry Date Author Adult 04/10/2025 2:49 PM EST Diann Eastman * Patient Position Answer Entry Date Author Sitting 04/10/2025 2:49 PM EST Diann Eastman * Pain Screening Answer Entry Date Author 0-10 04/10/2025 2:53 PM EST Diann Eastman documented in this encounter Miscellaneous Notes * Progress Notes - Lily Eaton PA - 04/10/2025 3:00 PM EST Infectious Disease Consult We were asked to evaluate . Clara Narciso Hoang, a 50 y.o. yo female by Dr. Damari Lopez for positive Quantiferon TB Gold test. Our findings and recommendations will be communicated through the sharedmedical record. HPI Patient had a positive Quantiferon TB Gold test on 03/01/2025. She had a negative CXR for signs of active TB on 03/08/2025. She denies any symptoms of active TB with no cough, fever, night sweats, chills, or weight loss. She has never worked in a medical setting. She reports a cruise last year to the [facility]. She denies other international travel. She denies a history of incarceration. She denies a history of homelessness. She has never been around anyone with active TB. She reports she has lupus and rheumatoid arthritis. She reports her cooker meal recently changedher from belimumab to Saphnelo, but she has not yet started this medication as her TB screening waspositive. Her previous TB screening from 09/17/2023 was negative. She continues to take methotrexateevery . Current Medications[1] Medical/Surgical/Social/Family History I have reviewed and updated the patient history. Immunizations Reviewed Allergies Cefuroxime, Citalopram, Penicillin g, Penicillins, and Trazodone REVIEW OF SYSTEMS: Review of Systems Constitutional: Negative for chills, fatigue and fever. HENT: Negative for congestion and sore throat. Eyes: Negative for visual disturbance. Respiratory: Negative for cough and shortness of breath. Cardiovascular: Negative for chest pain. Gastrointestinal: Negative for abdominal pain, diarrhea, nausea and vomiting. Genitourinary: Negative for dysuria. Musculoskeletal: Positive for arthralgias and myalgias. Skin: Negative for rash. Neurological: Negative for dizziness, weakness and headaches. Psychiatric/Behavioral: Negative for dysphoric mood and suicidal ideas. Physical Exam Vitals reviewed. Constitutional: General: She is not in acute distress. Appearance: Normal appearance. She is not ill-appearing. HENT: Head: Normocephalic and atraumatic. Right Ear: External ear normal. Left Ear: External ear normal. Nose: Nose normal. No congestion. Mouth/Throat: Mouth: Mucous membranes are moist. Pharynx: Oropharynx is clear. Eyes: Conjunctiva/sclera: Conjunctivae normal. Cardiovascular: Rate and Rhythm: Normal rate and regular rhythm. Heart sounds: Normal heart sounds. Pulmonary: Effort: Pulmonary effort is normal. No respiratory distress. Breath sounds: Normal breath sounds. Abdominal: General: Bowel sounds are normal. There is no distension. Palpations: Abdomen is soft. Tenderness: There is no abdominal tenderness. Musculoskeletal: General: Normal range of motion. Skin: General: Skin is warm and dry. Findings: No rash. Neurological: General: No focal deficit present. Mental Status: She is alert and oriented to person, place, and time. Psychiatric: Mood and Affect: Mood normal. Behavior: Behavior normal. LABS: Appointment on 03/01/2025 Component Date Value Ref Range Status C3 Complement 03/01/2025 77 (L) 84 - 166 mg/dL Final C4 Complement 03/01/2025 10 (L) 13 - 36 mg/dL Final Double-Stranded DNA (dsDNA) Ab IgG* 03/01/2025 1:320 (H) <1:10 Final Color, Urine 03/01/2025 Yellow Final Clarity, Urine 03/01/2025 Clear Final Spec [place], Urine 03/01/2025 1.016 1.005 - 1.030 Final pH, Urine 03/01/2025 6.0 5.0 - 8.0 Final Protein, Urine 03/01/2025 Negative Negative mg/dL Final Glucose, Urine 03/01/2025 >=1000 (A) Negative mg/dL Final Ketones, Urine 03/01/2025 Negative Negative mg/dL Final Blood, Urine 03/01/2025 Negative Negative Final Bilirubin, Urine 03/01/2025 Negative Negative Final Urobilinogen, Urine 03/01/2025 0.2 0.2 to 1.0 mg/dL Final Leukocytes, Urine 03/01/2025 Trace (A) Negative Final Nitrite, Urine 03/01/2025 Negative Negative Final RBC, Urine 03/01/2025 2 0 to 3 /HPF Final This result was previously suppressed from the chart. WBC, Urine 03/01/2025 0 - 5 0 to 5 /HPF Final This result was previously suppressed from the chart. Squamous Epithelial Cells 03/01/2025 3 - 5 0 to 5 /HPF Final This result was previously suppressed from the chart. Hyaline Casts 03/01/2025 0 - 2 0 to 5 /LPF Final This result was previously suppressed from the chart. Bacteria, Urine 03/01/2025 Present Negative Final This result was previously suppressed from the chart. Protein, Urine 03/01/2025 7 mg/dL Final Creatinine, Urine 03/01/2025 54 mg/dL Final Protein/Creatinine Ratio 03/01/2025 0.1 mg/mg Creat Final WBC Count 03/01/2025 3.34 (L) 3.70 - 10.30 10*3/uL Final RBC Count 03/01/2025 4.18 3.90 - 5.20 10*6/uL Final HGB 03/01/2025 11.5 11.2 - 15.7 g/dL Final HCT 03/01/2025 37.0 34.0 - 45.0 % Final Platelet Count 03/01/2025 159 155 - 369 10*3/uL Final MCV 03/01/2025 89 79 - 98 fL Final MCH 03/01/2025 27.5 26.0 - 32.0 pg Final MCHC 03/01/2025 31.1 30.7 - 35.5 g/dL Final RDW 03/01/2025 14.6 (H) 11.5 - 14.5 % Final MPV 03/01/2025 11.6 8.8 - 12.5 fL Final nRBC 03/01/2025 0.0 <=0.0 per 100 WBCs Final Differential Type 03/01/2025 Automated Final Neutrophils % 03/01/2025 68 % Final Lymphocytes % 03/01/2025 19 % Final Monocytes % 03/01/2025 12 % Final Eosinophils % 03/01/2025 0 % Final Basophils % 03/01/2025 0 % Final Immature Granulocytes % 03/01/2025 1 % Final Neutrophils Absolute 03/01/2025 2.27 1.60 - 6.10 10*3/uL Final Lymphocytes Absolute 03/01/2025 0.62 (L) 1.20 - 3.90 10*3/uL Final Monocytes Absolute 03/01/2025 0.40 0.30 - 0.90 10*3/uL Final Eosinophils Absolute 03/01/2025 0.01 0.00 - 0.50 10*3/uL Final Basophils Absolute 03/01/2025 0.01 0.00 - 0.10 10*3/uL Final Immature Granulocytes Absolute 03/01/2025 0.03 0.00 - 0.06 10*3/uL Final Glucose, Plasma 03/01/2025 94 74 - 99 mg/dL Final BUN, Plasma 03/01/2025 14 7 - 21 mg/dL Final Creatinine, Plasma 03/01/2025 1.11 (H) 0.60 - 1.10 mg/dL Final BUN/Creatinine Ratio 03/01/2025 13 Final Sodium, Plasma 03/01/2025 140 136 - 145 mmol/L Final Potassium, Plasma 03/01/2025 4.2 3.6 - 4.9 mmol/L Final Chloride, Plasma 03/01/2025 103 97 - 107 mmol/L Final CO2, Plasma 03/01/2025 27 22 - 29 mmol/L Final Anion Gap 03/01/2025 10 6 - 16 mmol/L Final Total Calcium, Plasma 03/01/2025 9.5 8.9 - 10.2 mg/dL Final Total Protein 03/01/2025 8.0 (H) 6.3 - 7.9 g/dL Final Albumin, Plasma 03/01/2025 4.2 3.5 - 5.2 g/dL Final AST, Plasma 03/01/2025 35 10 - 35 U/L Final ALT, Plasma 03/01/2025 25 10 - 35 U/L Final Alkaline Phosphatase, Plasma 03/01/2025 100 35 - 104 U/L Final Total Bilirubin, Plasma 03/01/2025 0.3 0.2 - 1.1 mg/dL Final eGFRcr 03/01/2025 60.7 mL/min/1.73m*2 Final Reported eGFRcr in mL/min/1.73m2 is based the CKD-EPI 2020 equation that does not use a race coefficient. Quantiferon TB Gold Plus Result 03/01/2025 Positive (A) Negative Final TB Nill Value 03/01/2025 0.725 IU/mL Final TB Antigen 1 03/01/2025 2.685 IU/mL Final TB Antigen 2 03/01/2025 0.108 IU/mL Final TB Mitogen 03/01/2025 9.145 IU/mL Final Hepatitis B Surf Antigen 03/01/2025 Negative Negative Final Hepatitis C Antibody 03/01/2025 Negative Negative Final Hepatitis A Antibody IgM 03/01/2025 Negative Negative Final Hepatitis B Core Antibody IgM 03/01/2025 Negative Negative Final Imagin03/08/2025 Narrative & Impression CLINICAL INDICATION: Positive Quantiferon test, on Immunomodulatory medication TECHNIQUE: XR CHEST 2 VIEWS COMPARISON: Chest radiograph 01/22/2016 FINDINGS: Cardiac silhouette and mediastinal contours within normal limits. No pneumothorax or pleural effusions. No acute airspace consolidations. No pathologic calcifications. IMPRESSION: No evidence of active or remote mycobacterial infection. CRITICAL RESULT: No. COMMUNICATION: Per this written report. ASSESSMENT: Problem List Items Addressed This Visit None Visit Diagnoses LTBI (latent tuberculosis infection) - Primary Relevant Medications pyridoxine (Vitamin B-6) 50 MG tablet isoniazid (Nydrazid) 300 MG tablet Rifapentine 150 MG tablet Other Relevant Orders CBC and Differential Comprehensive Metabolic Panel, Plasma Clara Hoang is a 50-year-old female with lupus and rheumatoid arthritis on methotrexate and Saphnelo. She had a positive Quantiferon TB Gold test on 03/01/2025 with a normal CXR which is consistent with a diagnosis of latent TB. Saphnelo is currently being held as it is a biologic medication that can weaken the immune system and increase the risk of TB reactivation. I would recommend holding this medication until patient has completed at least 3-4 weeks of her latent TB regimen. I discussed latent TB treatment regimens and patient preferred once weekly rifapentine + isoniazid.I did a DDI check and found no significant interactions. I advised pt that rifapentine will turn fluids orange and isoniazid can cause peripheral neuropathy. Since patient has underlying peripheral neuropathy on gabapentin, I recommend daily vitamin B6 to decrease the risk of progression. Patient was advised that she will always have a positive Quantiferon Tb Gold test and once she completes treatment, she will not need to be treated again. In the future, she should be screened with CXR only and if having active symptoms, CXR + sputum samples. RECOMMENDATIONS: - Start latent TB treatment with 900mg rifapentine + 900mg isoniazid once weekly for 12 weeks - Daily vitamin B6 to decrease the risk of peripheral neuropathy progression - CBCd and CMP today for baseline labs - Hold Saphnelo pending 3-4 weeks of latent TB treatment - Repeat TB screening with CXR only and if symptomatic CXR + sputum samples - Follow up: 1 month Time Spent: I personally spent a total of 60 minutes on this encounter. This time includes face to face with patient, counseling and discussion and/or coordination of care. ELIF Galloway [1] Current Outpatient Medications: cyanocobalamin (Vitamin B-12) 1000 MCG/ML injection, 1ml injection every day for 1 week, 1ml every week for 1 month, then 1 ml every month., Disp: , Rfl: desonide (DesOwen) 0.05 % cream, Take by mouth every 6 (six) hours., Disp: , Rfl: docusate sodium (Colace) 100 MG capsule, Take 1 capsule (100 mg) by mouth daily., Disp: , Rfl: ergocalciferol 1.25 MG (34070 UT) capsule, TAKE 1 CAPSULE BY MOUTH 1 TIME A MONTH, Disp: , Rfl: Farxiga 10 MG tablet, Take 1 tablet (10 mg) by mouth daily., Disp: , Rfl: FeroSul 325 (65 Fe) MG tablet, Take 1 tablet (325 mg) by mouth in the morning and 1 tablet (325 mg)before bedtime., Disp: , Rfl: fluocinonide (Lidex) 0.05 % external solution, Apply 60 application topically 2 (two) times a day.,Disp: , Rfl: folic acid (Folvite) 1 MG tablet, Take 1 tablet by mouth daily., Disp: , Rfl: furosemide (Lasix) 40 MG tablet, Take by mouth., Disp: , Rfl: gabapentin (Neurontin) 100 MG capsule, , Disp: , Rfl: glipiZIDE XL 5 MG 24 hr tablet, Take 1 tablet (5 mg) by mouth 1 (one) time each day., Disp: , Rfl: hydroxychloroquine (Plaquenil) 200 MG tablet, TAKE 1 TABLET(200 MG) BY MOUTH TWICE DAILY, Disp: 180tablet, Rfl: 2 mupirocin (Bactroban) 2 % ointment, APPLY SMALL AMOUNT TOPICALLY TO THE AFFECTED AREA THREE TIMES DAILY, Disp: , Rfl: nitroglycerin (Antolin-Bid) 2 % ointment, Place 0.25 inches on the skin in the morning and 0.25 inchesbefore bedtime. Apply to fingertips twice daily., Disp: 30 g, Rfl: 0 oxybutynin XL (Ditropan-XL) 10 MG 24 hr tablet, Take 1 tablet (10 mg) by mouth 1 (one) time each day., Disp: , Rfl: oxybutynin XL (Ditropan-XL) 5 MG 24 hr tablet, Take by mouth every 6 (six) hours., Disp: , Rfl: pantoprazole (Protonix) 40 MG EC tablet, Take 1 tablet (40 mg) by mouth 1 (one) time each day., Disp: , Rfl: spironolactone (Aldactone) 25 MG tablet, Take 1 tablet (25 mg) by mouth 1 (one) time each day., Disp: , Rfl: Symbicort 160-4.5 MCG/ACT inhaler, Inhale 2 puffs 2 (two) times a day., Disp: , Rfl: triamcinolone (Kenalog) 0.1 % cream, Apply to fingertips 1-2 times daily as needed, Disp: 45 g, Rfl: 0 Ventolin HFA 108 (90 Base) MCG/ACT inhaler, INHALE 2 INHALATIONS BY MOUTH EVERY 6 HOURS NEEDED FOR SHORTNESS OF BREATH OR WHEEZING., Disp: , Rfl: DULoxetine (Cymbalta) [address] capsule, Take 1 capsule (60 mg total) by mouth every night. (Patientnot taking: Reported on 04/10/2025), Disp: 90 capsule, Rfl: 1 gabapentin (Neurontin) 100 MG capsule, Take 1 capsule (100 mg total) by mouth 3 (three) times a day. (Patient not taking: Reported on 04/10/2025), Disp: 90 capsule, Rfl: 1 isoniazid (Nydrazid) 300 MG tablet, Take 3 tablets by mouth every 7 days., Disp: 12 tablet, Rfl: 2 lubiprostone (Amitiza) 24 MCG capsule, Take by mouth every 6 (six) hours. (Patient not taking: Reported on 04/10/2025), Disp: , Rfl: methotrexate 2.5 MG tablet, Take 6 tablets (15 mg total) by mouth 1 time per week. Follow directions carefully, and ask to explain any part you do not understand. Take exactly as directed., Disp: 72 tablet, Rfl: 2 omeprazole (PriLOSEC) [address] capsule, TAKE 1 CAPSULE BY MOUTH EVERY DAY (Patient not taking: Reported on 04/10/2025), Disp: 60 capsule, Rfl: 2 predniSONE (Deltasone) 20 MG tablet, Take 1 tablet (20 mg) by mouth 1 (one) time each day. (Patientnot taking: Reported on 04/10/2025), Disp: 10 tablet, Rfl: 0 pyridoxine (Vitamin B-6) 50 MG tablet, Take 1 tablet by mouth daily., Disp: 30 tablet, Rfl: 2 Rifapentine 150 MG tablet, Take 900 mg by mouth every 7 days., Disp: 24 tablet, Rfl: 2 zolpidem (Ambien) 5 MG tablet, TAKE 1 TABLET BY MOUTH AT BEDTIME NEEDED INSOMNIA (Patient not taking: Reported on 04/10/2025), Disp: 30 tablet, Rfl: 2 documented in this encounter Plan of Treatment Upcoming Encounters Date Type Department Care Team (Late st Contact Info) Description 05/31/2025 8:50 AM EST Office Visit [facility] D[facility] [address] [place] [phone] Don Hung MD [address] [place] [phone] 06/02/2025 9:10 AM EST Office Visit [facility] [address] [place] [phone] 06/08/2025 4:30 PM EST Office Visit [address] [phone] Lily Eaton PA [facility] [address] [place] [phone] 06/20/2025 3:30 PM EST Appointment [facility] [address] [facility] Room [address] [phone] 07/18/2025 3:30 PM EST Appointment [facility] [address] [facility] Room [address] [phone] 08/15/2025 3:30 PM EDT Appointment [facility] [address] [phone] 09/12/2025 3:30 PM EDT Appointment [facility] [address] [phone] 10/10/2025 3:30 PM EDT Appointment [facility] [address] [phone] Scheduled Referrals Name Type Priority Associated Diagnoses Orde r Schedule Follow Up ID Outpatient Referral Routine LTBI (latent tuberculosis infection) Expected: 05/10/2025, Expires: 05/10/2026 documented as of this encounter Results * (ABNORMAL) Comprehensive Metabolic Panel, Plasma (04/10/2025 3:41 PM EST) Glucose, Plasma 91 74 - 99 mg/dL 04/10/2025 7:44 PM EST [facility] BUN, Plasma 13 7 - 21 mg/dL 04/10/2025 7:44 PM EST [facility] Creatinine, Plasma 1.14(H) 0.60 - 1.10 mg/dL 04/10/2025 7:44 PM EST [facility] BUN/Creatinine Ratio 11 04/10/2025 7:44 PM EST [facility] Sodium, Plasma 139 136 - 145 mmol/L 04/10/2025 7:44 PM EST [facility] Potassium, Plasma 4.0 3.6 - 4.9 mmol/L 04/10/2025 7:44 PM EST [facility] Chloride, Plasma 98 97 - 107 mmol/L 04/10/2025 7:44 PM EST [facility] CO2, Plasma 28 22 - 29 mmol/L 04/10/2025 7:44 PM EST [facility] Anion Gap 13 6 - 16 mmol/L 04/10/2025 7:44 PM EST [facility] Total Calcium, Plasma 9.4 8.9 - 10.2 mg/dL 04/10/2025 7:44 PM EST [facility] Total Protein 8.8(H) 6.3 - 7.9 g/dL 04/10/2025 7:44 PM EST [facility] Albumin, Plasma 3.9 3.5 - 5.2 g/dL 04/10/2025 7:44 PM EST [facility] AST, Plasma 27 10 - 35 U/L 04/10/2025 7:44 PM EST [facility] ALT, Plasma 23 10 - 35 U/L 04/10/2025 7:44 PM EST [facility] Alkaline Phosphatase, Plasma 98 35 - 104 U/L 04/10/2025 7:44 PM EST [facility] Total Bilirubin, Plasma 0.4 0.2 - 1.1 mg/dL 04/10/2025 7:44 PM EST [facility] eGFRcr 58.4 mL/min/1.7 3m*2 04/10/2025 7:44 PM EST [facility] Comment:Reported eGFRcr in m L/min/1.73m2 is based the CKD-EPI 2020 equation that does not use a race coefficient. Blood Venous blood specimen / Unknown Venipuncture / Unknown 04/10/2025 3:41 PM EST 04/10/2025 3:44 PM EST us [facility] BLOOD ORDERABLES Final Result [facility] [address] [place] [address] * (ABNORMAL) CBC and Differential (04/10/2025 3:41 PM EST) WBC Count 3.49(L) 3.70 - 10.30 10*3/uL LAB HEMATOLOGY METHOD 04/10/2025 7:36 PM EST [facility] RBC Count 3.96 3.90 - 5.20 10*6/uL LAB HEMATOLOGY METHOD 04/10/2025 7:36 PM EST [facility] HGB 10.9(L) 11.2 - 15.7 g/dL LAB HEMATOLOGY METHOD 04/10/2025 7:36 PM EST [facility] HCT 34.8 34.0 - 45.0 % LAB HEMATOLOGY METHOD 04/10/2025 7:36 PM EST [facility] Platelet Count 167 155 - 369 10*3/uL LAB HEMATOLOGY METHOD 04/10/2025 7:36 PM EST [facility] MCV 88 79 - 98 fL LAB HEMATOLOGY METHOD 04/10/2025 7:36 PM EST [facility] MCH 27.5 26.0 - 32.0 pg LAB HEMATOLOGY METHOD 04/10/2025 7:36 PM EST [facility] MCHC 31.3 30.7 - 35.5 g/dL LAB HEMATOLOGY METHOD 04/10/2025 7:36 PM EST [facility] RDW 13.8 11.5 - 14.5 % LAB HEMATOLOGY METHOD 04/10/2025 7:36 PM EST [facility] MPV 9.9 8.8 - 12.5 fL LAB HEMATOLOGY METHOD 04/10/2025 7:36 PM EST [facility] nRBC 0.0 <=0.0 per 100 WBCs LAB HEMATOLOGY METHOD 04/10/2025 7:36 PM [facility] Differential Type Automated LAB HEMATOLOGY METHOD 04/10/2025 7:36 PM [facility] Neutrophils % 48 % LAB HEMATOLOGY METHOD 04/10/2025 7:36 PM EST [facility] Lymphocytes % 36 % LAB HEMATOLOGY METHOD 04/10/2025 7:36 PM EST [facility] Monocytes % 16 % LAB HEMATOLOGY METHOD 04/10/2025 7:36 PM [facility] Eosinophils % 0 % LAB HEMATOLOGY METHOD 04/10/2025 7:36 PM [facility] Basophils % 0 % LAB HEMATOLOGY METHOD 04/10/2025 7:36 PM [facility] Immature Granulocytes % 0 % LAB HEMATOLOGY METHOD 04/10/2025 7:36 PM EST [facility] Neutrophils Absolute 1.65 1.60 - 6.10 10*3/uL LAB HEMATOLOGY METHOD 04/10/2025 7:36 PM EST [facility] Lymphocytes Absolute 1.27 1.20 - 3.90 10*3/uL LAB HEMATOLOGY METHOD 04/10/2025 7:36 PM EST [facility] Monocytes Absolute 0.54 0.30 - 0.90 10*3/uL LAB HEMATOLOGY METHOD 04/10/2025 7:36 PM EST [facility] Eosinophils Absolute 0.01 0.00 - 0.50 10*3/uL LAB HEMATOLOGY METHOD 04/10/2025 7:36 PM EST [facility] Basophils Absolute 0.01 0.00 - 0.10 10*3/uL LAB HEMATOLOGY METHOD 04/10/2025 7:36 PM EST [facility] Immature Granulocytes Absolute 0.01 0.00 - 0.06 10*3/uL LAB HEMATOLOGY METHOD 04/10/2025 7:36 PM EST [facility] Blood Venous blood specimen / Unknown Venipuncture / Unknown 04/10/2025 3:41 PM EST 04/10/2025 3:44 PM EST Narrative [facility] - 04/10/2025 7:36 PM EST Therapeutic decision making should be based on absolute values, rather than percentages. us Lily [facility] LAB BLOOD ORDERABLES Final Result [facility] [address] [place] [address] documented in this encounter Visit Diagnoses Diagnosis LTBI (latent tuberculosis infection)- Primary Nonspecific reaction to tuberculin skin test without active tuberculosis documented in this encounter Additional Health Concerns Assessment Noted Time A fall risk assessment has been complete d for the patient 03/01/2025 11:49 AM EDT A Body Mass Index follow-up plan has been documented for the patient 04/10/2025 3:36 PM EST documented as of this encounter Care Teams Prosthodontist Relationship Specialty Start Date End Date Randy Leigh APRN [address] [place], [place] [address] PCP - General 03/10/25 documented as of this encounter
--- OUTSIDE RECORDS SUMMARY | 2025-05-10 16:30 | XMS_ITS | Encounter Summary ---
Author Organization Healthcare Address [address] [place] [address] Care Team Providers Care Fac Engineer Name Role Phone Randy Leigh APRN Primary Care Provider + Reason for Referral * Consultation (Routine) - Authorized Specialty Diagnoses / Procedures Referred By Contac t Referred To Contact Diagnoses LTBI (latent tuberculosis infection) Lily Eaton PA [address] [place] [phone] Phone: tel: fax: Referral ID Status Reason Start Date Expiration Date V isits Requested Visits Authorized [id number] Authorized 05/10/2025 11/09/2026 1 1 Reason for Visit * Consultation (Routine) - Closed Specialty Diagnoses / Procedures Referred By Contac t Referred To Contact Diagnoses LTBI (latent tuberculosis infection) Lily Eaton PA [address] [place] [phone] Phone: tel: fax: Referral ID Status Reason Start Date Expiration Date Visits Re quested Visits Authorized [id number] Closed 04/10/2025 10/10/2026 1 1 Encounter Details Date Type Department Care Team (Late st Contact Info) Description 05/10/2025 4:30 PM EST Office Visit [place] [id number] Lily Eaton, ELIF [address] [facility] [address] [place] [address] LTBI (latent tuberculosis infection) (Primary [...] Sign Reading Time Taken Comments Blood Pressure 96/65 05/10/2025 4:27 PM EST Pulse 81 05/10/2025 4:27 PM EST Temperature 36.7 C (98.1 F) 05/10/2025 4:27 PM EST Respiratory Rate - - Oxygen Saturation 98% 05/10/2025 4:27 PM EST Inhaled Oxygen Concentration - - Weight 75.7 kg (166 lb 14.2 oz) 05/10/2025 4:27 PM EST Height 165.1 cm (5' 5 ) 05/10/2025 4:27 PM EST Body Mass Index 27.77 05/10/2025 4:27 PM EST documented in this encounter Functional Status * BP Answer Date of Assessment Author 96/65 05/10/2025 4:27 PM EST Diann Eastman * Temp Answer Date of Assessment Author 98.1 05/10/2025 4:27 PM EST Diann Eastman * Temp src Answer Date of Assessment Author Oral 05/10/2025 4:27 PM EST Diann Eastman * Pulse Answer Date of Assessment Author 81 05/10/2025 4:27 PM EST Diann Eastman * SpO2 Answer Date of Assessment Author 98 05/10/2025 4:27 PM EST Diann Eastman * Height Answer Date of Assessment Author 65 05/10/2025 4:27 PM EST Diann Eastman * Weight Answer Date of Assessment Author 2670.21 05/10/2025 4:27 PM Diann Flores * BMI (Calculated) Answer Date of Assessment Author 27.8 05/10/2025 4:27 PM EST Diann Eastman * Percent Excess Weight Loss Answer Date of Assessment Author 0 05/10/2025 4:27 PM Diann Flores * Total Weight Change Percent Answer Date of Assessment Author 2222 05/10/2025 4:27 PM EST Diann Eastman * Weight Change Since Preop Answer Date of Assessment Author 75.68 05/10/2025 4:27 PM Diann Flores * Initial Excess Weight Answer Date of Assessment Author -56.7 05/10/2025 4:27 PM Diann Flores * IBW in lbs (Bariatric) Answer Date of Assessment Author 125 05/10/2025 4:27 PM Diann Flores * Weight Change Since Last Visit Answer Date of Assessment Author 75.68 05/10/2025 4:27 PM Diann Flores * IBW in kg (Bariatric) Answer Date of Assessment Author 56.7 05/10/2025 4:27 PM Diann Flores * Percent of IBW Answer Date of Assessment Author 4,709.37 05/10/2025 4:27 PM Diann Flores * EBW (kg) Answer Date of Assessment Author 2,668.6 05/10/2025 4:27 PM Diann Flores * EBW (lbs) Answer Date of Assessment Author 2,662.4 05/10/2025 4:27 PM Diann Flores * Weight Change 24 hrs Answer Date of Assessment Author .4 05/10/2025 4:27 PM Diann Flores * BSA (Calculated - sq m) Answer Date of Assessment Author 1.86 05/10/2025 4:27 PM Diann Flores * BMI (Calculated) Answer Date of Assessment Author 27.77 05/10/2025 4:27 PM Diann Flores * BP Location Answer Date of Assessment Author Left arm 05/10/2025 4:27 PM Diann Flores * IBW/kg (Calculated) Male Answer Date of Assessment Author 61.5 05/10/2025 4:27 PM Diann Flores * IBW/kg (Calculated) Female Answer Date of Assessment Author 57 05/10/2025 4:27 PM Diann Flores * IBW/kg (Calculated) Answer Date of Assessment Author 57 05/10/2025 4:27 PM Diann Flores * Weight in (lb) to have BMI = 25 Answer Date of Assessment Author 149.9 05/10/2025 4:27 PM Diann Flores * BMI (Calculated) Answer Date of Assessment Author 27.8 05/10/2025 4:27 PM Diann Flores * Percent Excess Weight Loss Answer Date of Assessment Author 0 05/10/2025 4:27 PM Diann Flores * Weight Change Since Preop Answer Date of Assessment Author 75.7 05/10/2025 4:27 PM Diann Flores * Initial Excess Weight Answer Date of Assessment Author -56.7 05/10/2025 4:27 PM Diann Flores * IBW in kg (Bariatric) Answer Date of Assessment Author 56.7 05/10/2025 4:27 PM Diann Flores * IBW in lb (Bariatric) Answer Date of Assessment Author 125 05/10/2025 4:27 PM Diann Flores * Weight Change Since Last Visit Answer Date of Assessment Author 75.7 05/10/2025 4:27 PM Diann Flores * Percent of IBW Answer Date of Assessment Author 133.51 05/10/2025 4:27 PM Diann Flores * EBW (kg) Answer Date of Assessment Author 18.98 05/10/2025 4:27 PM Diann Flores * EBW (lb) Answer Date of Assessment Author 41.89 05/10/2025 4:27 PM Diann Flores * Difference in Weight Since Last Visit Answer Date of Assessment Author 0.4 05/10/2025 4:27 PM Diann Flores * Temp (in Celsius) for KARUK IV Answer Date of Assessment Author 36.7 05/10/2025 4:27 PM Diann Flores * IBW/kg (Calculated) Answer Date of Assessment Author 57 05/10/2025 4:27 PM EST Diann Eastman * Adult Low Range Vt 6mL/kg Answer Date of Assessment Author 342 05/10/2025 4:27 PM EST Diann Eastman * Adult Moderate Range Vt 8mL/kg Answer Date of Assessment Author 456 05/10/2025 4:27 PM EST Diann Eastman * Adult High Range Vt 10mL/kg Answer Date of Assessment Author 570 05/10/2025 4:27 PM EST Diann Eastman * Pain Score Answer Date of Assessment Author 0 05/10/2025 4:30 PM Diann Flores * Patient Position Answer Date of Assessment Author Sitting 05/10/2025 4:27 PM Diann Flores * Pain Screening/Additional Assessments Question Answer Date of Assessment Author Pain Screening/Assessments Pain Screening 05/10/2025 4 :30 PM Diann Flores * Pain Screening Answer Date of Assessment Author 0-10 05/10/2025 4:30 PM Diann Flores * BP Answer Date of Assessment Author 96/65 05/10/2025 4:27 PM Diann Flores * Temp Answer Date of Assessment Author 98.1 05/10/2025 4:27 PM Diann Flores * Temp src Answer Date of Assessment Author Oral 05/10/2025 4:27 PM Diann Flores * Pulse Answer Date of Assessment Author 81 05/10/2025 4:27 PM Diann Flores * SpO2 Answer Date of Assessment Author 98 05/10/2025 4:27 PM Diann Flores * Height Answer Date of Assessment Author 65 05/10/2025 4:27 PM Diann Flores * Weight Answer Date of Assessment Author 2670.21 05/10/2025 4:27 PM Diann Flores * BSA (Calculated - sq m) Answer Date of Assessment Author 1.86 05/10/2025 4:27 PM Diann Folres * BMI (Calculated) Answer Date of Assessment Author 27.77 05/10/2025 4:27 PM Diann Flores * BP Location Answer Date of Assessment Author Left arm 05/10/2025 4:27 PM Diann Flores * Weight in (lb) to have BMI = 25 Answer Date of Assessment Author 149.9 05/10/2025 4:27 PM Diann Flores * Pain Score Answer Date of Assessment Author 0 05/10/2025 4:30 PM Diann Flores * Patient Position Answer Date of Assessment Author Sitting 05/10/2025 4:27 PM Diann Flores documented as of this encounter Mental Status * BP Answer Entry Date Author 96/65 05/10/2025 4:27 PM Diann Flores * Temp Answer Entry Date Author 98.1 05/10/2025 4:27 PM Diann Flores * Temp src Answer Entry Date Author Oral 05/10/2025 4:27 PM Diann Flores * Pulse Answer Entry Date Author 81 05/10/2025 4:27 PM Diann Flores * SpO2 Answer Entry Date Author 98 05/10/2025 4:27 PM Diann Flores * Height Answer Entry Date Author 65 05/10/2025 4:27 PM Diann Flores * Weight Answer Entry Date Author 2670.21 05/10/2025 4:27 PM Diann Flores * BMI (Calculated) Answer Entry Date Author 27.8 05/10/2025 4:27 PM Diann Flores * Percent Excess Weight Loss Answer Entry Date Author 0 05/10/2025 4:27 PM Diann Flores * Total Weight Change Percent Answer Entry Date Author 222105/10/2025 4:27 PM Diann Flores * Weight Change Since Preop Answer Entry Date Author 75.68 05/10/2025 4:27 PM Diann Flores * Initial Excess Weight Answer Entry Date Author -56.7 05/10/2025 4:27 PM Diann Flores * IBW in lbs (Bariatric) Answer Entry Date Author 125 05/10/2025 4:27 PM Diann Flores * Weight Change Since Last Visit Answer Entry Date Author 75.68 05/10/2025 4:27 PM EST Diann Eastman * IBW in kg (Bariatric) Answer Entry Date Author 56.7 05/10/2025 4:27 PM EST Diann Eastman * Percent of IBW Answer Entry Date Author 4,709.37 05/10/2025 4:27 PM EST Diann Eastman * EBW (kg) Answer Entry Date Author 2,668.6 05/10/2025 4:27 PM EST Diann Eastman * EBW (lbs) Answer Entry Date Author 2,662.4 05/10/2025 4:27 PM EST Diann Eastman * Weight Change 24 hrs Answer Entry Date Author .4 05/10/2025 4:27 PM EST Diann Eastman * BSA (Calculated - sq m) Answer Entry Date Author 1.86 05/10/2025 4:27 PM EST Diann Eastman * BMI (Calculated) Answer Entry Date Author 27.77 05/10/2025 4:27 PM Diann Flores * BP Location Answer Entry Date Author Left arm 05/10/2025 4:27 PM Diann Flores * IBW/kg (Calculated) Male Answer Entry Date Author 61.5 05/10/2025 4:27 PM EST Diann Eastman * IBW/kg (Calculated) Female Answer Entry Date Author 57 05/10/2025 4:27 PM EST Diann Eastman * IBW/kg (Calculated) Answer Entry Date Author 57 05/10/2025 4:27 PM Diann Flores * Restart Pain Assessment Timer Answer Entry Date Author Yes 05/10/2025 4:30 PM EST Diann Eastman * Weight in (lb) to have BMI = 25 Answer Entry Date Author 149.9 05/10/2025 4:27 PM EST Diann Eastman * BMI (Calculated) Answer Entry Date Author 27.8 05/10/2025 4:27 PM EST Diann Eastman * Percent Excess Weight Loss Answer Entry Date Author 0 05/10/2025 4:27 PM Diann Flores * Weight Change Since Preop Answer Entry Date Author 75.7 05/10/2025 4:27 PM Diann Flores * Initial Excess Weight Answer Entry Date Author -56.7 05/10/2025 4:27 PM Diann Flores * IBW in kg (Bariatric) Answer Entry Date Author 56.7 05/10/2025 4:27 PM Diann Flores * IBW in lb (Bariatric) Answer Entry Date Author 125 05/10/2025 4:27 PM Diann Flores * Weight Change Since Last Visit Answer Entry Date Author 75.7 05/10/2025 4:27 PM Diann Flores * Percent of IBW Answer Entry Date Author 133.51 05/10/2025 4:27 PM Diann Flores * EBW (kg) Answer Entry Date Author 18.98 05/10/2025 4:27 PM Diann Flores * EBW (lb) Answer Entry Date Author 41.89 05/10/2025 4:27 PM Diann Flores * Difference in Weight Since Last Visit Answer Entry Date Author 0.4 05/10/2025 4:27 PM Diann Flores * Temp (in Celsius) for KARUK IV Answer Entry Date Author 36.7 05/10/2025 4:27 PM Diann Flores * IBW/kg (Calculated) Answer Entry Date Author 57 05/10/2025 4:27 PM Diann Flores * Adult Low Range Vt 6mL/kg Answer Entry Date Author 342 05/10/2025 4:27 PM Diann Flores * Adult Moderate Range Vt 8mL/kg Answer Entry Date Author 456 05/10/2025 4:27 PM Diann Flores * Adult High Range Vt 10mL/kg Answer Entry Date Author 570 05/10/2025 4:27 PM Diann Flores * Pain Score Answer Entry Date Author 0 05/10/2025 4:30 PM Diann Flores * BP Cuff Size Answer Entry Date Author Adult 05/10/2025 4:27 PM Diann Flores * Patient Position Answer Entry Date Author Sitting 05/10/2025 4:27 PM Diann Flores * Pain Screening Answer Entry Date Author 0-10 05/10/2025 4:30 PM EST Diann Eastman documented in this encounter Miscellaneous Notes * Progress Notes - Lily Eaton PA - 05/10/2025 4:30 PM EST Infectious Disease Follow Up Chief Complaint: Latent TB HPI Patient had a positive Quantiferon TB Gold test on 03/01/2025. She had a negative CXR for signs of active TB on 03/08/2025. She denies any symptoms of active TB with no cough, fever, night sweats, chills, or weight loss. She has never worked in a medical setting. She reports a cruise last year to the [facility]. She denies other international travel. She denies a history of incarceration. She denies a history of homelessness. She has never been around anyone with active TB. She has completed 4 of 12 doses of latent TB medicine with weekly rifapentine + isoniazid. She takes the medication every Thursday. She continues daily vitamin B6 and reports stable peripheral neuropathy with no progression of symptoms. She has not yet started Saphnelo, but has an appt 05/24/2025. She is currently holding methotrexate. She denies any SE other than orange urine. Current Medications[1] Medical/Surgical/Social/Family History I have reviewed [...] and myalgias. Skin: Negative for rash. Neurological: Positive for numbness. Negative for dizziness, weakness and headaches. Psychiatric/Behavioral: [...] normal. Behavior: Behavior normal. LABS: Appointment on 04/10/2025 Component Date Value Ref Range Status Glucose, Plasma 04/10/2025 91 74 - 99 mg/dL Final BUN, Plasma 04/10/2025 13 7 - 21 mg/dL Final Creatinine, Plasma 04/10/2025 1.14 (H) 0.60 - 1.10 mg/dL Final BUN/Creatinine Ratio 04/10/2025 11 Final Sodium, Plasma 04/10/2025 139 136 - 145 mmol/L Final Potassium, Plasma 04/10/2025 4.0 3.6 - 4.9 mmol/L Final Chloride, Plasma 04/10/2025 98 97 - 107 mmol/L Final CO2, Plasma 04/10/2025 28 22 - 29 mmol/L Final Anion Gap 04/10/2025 13 6 - 16 mmol/L Final Total Calcium, Plasma 04/10/2025 9.4 8.9 - 10.2 mg/dL Final Total Protein 04/10/2025 8.8 (H) 6.3 - 7.9 g/dL Final Albumin, Plasma 04/10/2025 3.9 3.5 - 5.2 g/dL Final AST, Plasma 04/10/2025 27 10 - 35 U/L Final ALT, Plasma 04/10/2025 23 10 - 35 U/L Final Alkaline Phosphatase, Plasma 04/10/2025 98 35 - 104 U/L Final Total Bilirubin, Plasma 04/10/2025 0.4 0.2 - 1.1 mg/dL Final eGFRcr 04/10/2025 58.4 mL/min/1.73m*2 Final Reported eGFRcr in mL/min/1.73m2 is based the CKD-EPI 2020 equation that does not use a race coefficient. WBC Count 04/10/2025 3.49 (L) 3.70 - 10.30 10*3/uL Final RBC Count 04/10/2025 3.96 3.90 - 5.20 10*6/uL Final HGB 04/10/2025 10.9 (L) 11.2 - 15.7 g/dL Final HCT 04/10/2025 34.8 34.0 - 45.0 % Final Platelet Count 04/10/2025 167 155 - 369 10*3/uL Final MCV 04/10/2025 88 79 - 98 fL Final MCH 04/10/2025 27.5 26.0 - 32.0 pg Final MCHC 04/10/2025 31.3 30.7 - 35.5 g/dL Final RDW 04/10/2025 13.8 11.5 - 14.5 % Final MPV 04/10/2025 9.9 8.8 - 12.5 fL Final nRBC 04/10/2025 0.0 <=0.0 per 100 WBCs Final Differential Type 04/10/2025 Automated Final Neutrophils % 04/10/2025 48 % Final Lymphocytes % 04/10/2025 36 % Final Monocytes % 04/10/2025 16 % Final Eosinophils % 04/10/2025 0 % Final Basophils % 04/10/2025 0 % Final Immature Granulocytes % 04/10/2025 0 % Final Neutrophils Absolute 04/10/2025 1.65 1.60 - 6.10 10*3/uL Final Lymphocytes Absolute 04/10/2025 1.27 1.20 - 3.90 10*3/uL Final Monocytes Absolute 04/10/2025 0.54 0.30 - 0.90 10*3/uL Final Eosinophils Absolute 04/10/2025 0.01 0.00 - 0.50 10*3/uL Final Basophils Absolute 04/10/2025 0.01 0.00 - 0.10 10*3/uL Final Immature Granulocytes Absolute 04/10/2025 0.01 0.00 - 0.06 10*3/uL Final Imagin03/08/2025 Narrative & Impression CLINICAL INDICATION: [...] LTBI (latent tuberculosis infection) - Primary Relevant Orders Comprehensive Metabolic Panel, Plasma Follow Up ID Clara Hoang is a 50-year-old female with lupus and rheumatoid arthritis on methotrexate and Saphnelo. She had a positive Quantiferon TB Gold test on 03/01/2025 with a normal CXR which is consistent with a diagnosis of latent TB. Saphnelo is currently being held as it is a biologic medication that can weaken the immune system and increase the risk of TB reactivation. Now that patient has tolerated latent TB medication for 4 weeks, it is safe to resume Saphnelo from an ID perspective. I discussed latent TB treatment regimens and patient preferred once weekly rifapentine + isoniazid.I did a DDI check and found no significant interactions. I advised pt that rifapentine will turn fluids orange and isoniazid can cause peripheral neuropathy. Since patient has underlying peripheral neuropathy on gabapentin, I recommend continuing daily vitamin B6 to decrease the risk of progression. Patient was advised that she will always have a positive Quantiferon Tb Gold test and once she completes treatment, she will not need to be treated again. In the future, she should be screened with CXR only and if having active symptoms, CXR + sputum samples. RECOMMENDATIONS: - Continue latent TB treatment with 900mg rifapentine + 900mg isoniazid once weekly for 12 weeks, pt has completed 4/12 doses - Continue daily vitamin B6 to decrease the risk of peripheral neuropathy progression - CMP today for monitoring of hepatotoxicity - Safe to resume Saphnelo from ID perspective - Repeat TB screening with CXR only and if symptomatic CXR + sputum samples - Follow up: 1 month Time Spent: I personally spent a total of 20 minutes on this encounter. This time includes [...] daily., Disp: , Rfl: ergocalciferol 1.25 MG (29383 UT) capsule, TAKE 1 CAPSULE BY MOUTH [...] MOUTH TWICE DAILY, Disp: 180tablet, Rfl: 2 isoniazid (Nydrazid) 300 MG tablet, Take 3 tablets by mouth every 7 days., Disp: 12 tablet, Rfl: 2 lubiprostone (Amitiza) 24 MCG capsule, Take by mouth every 6 (six) hours., Disp: , Rfl: methotrexate 2.5 MG tablet, Take 6 tablets (15 mg total) by mouth 1 time per week. Follow directions carefully, and ask to explain any part you do not understand. Take exactly as directed., Disp: 72 tablet, Rfl: 2 mupirocin (Bactroban) 2 % ointment, [...] (one) time each day., Disp: , Rfl: pantoprazole (Protonix) 40 MG EC tablet, Take 1 tablet (40 mg) by mouth 1 (one) time each day., Disp: , Rfl: pyridoxine (Vitamin B-6) 50 MG tablet, Take 1 tablet by mouth daily., Disp: 30 tablet, Rfl: 2 Rifapentine 150 MG tablet, Take 900 mg by mouth every 7 days., Disp: 24 tablet, Rfl: 2 spironolactone (Aldactone) 25 MG tablet, Take 1 [...] OF BREATH OR WHEEZING., Disp: , Rfl: gabapentin (Neurontin) 100 MG capsule, Take 1 capsule (100 mg total) by mouth 3 (three) times a day. (Patient not taking: Reported on 04/10/2025), Disp: 90 capsule, Rfl: 1 oxybutynin XL (Ditropan-XL) 5 MG 24 hr tablet, Take by mouth every 6 (six) hours. (Patient not taking: Reported on 05/10/2025), Disp: , Rfl: documented in this encounter Plan of Treatment Upcoming Encounters Date Type Department Care Team (Late st Contact Info) Description 05/31/2025 8:50 AM EST Office Visit [facility] [address] [place] [phone] Don Hung MD [address] [place] [address] 06/02/2025 9:10 AM EST Office Visit [facility] [address] [place] [id number] 06/08/2025 4:30 PM EST Office Visit [facility] [address] [place] [address] Lily Eaton PA [address] [facility] [address] [place] [address] 06/20/2025 3:30 PM EST Appointment [facility] [address] [facility] Room [address] [phone] 07/18/2025 3:30 PM EST Appointment [facility] [address] [facility] Room [address] [phone] 08/15/2025 3:30 PM EDT Appointment [facility] [address] [address] 09/12/2025 3:30 PM EDT Appointment [facility] [address] [facility] Room [address] [phone] 10/10/2025 3:30 PM EDT Appointment [facility] [address] [facility] Room [address] [phone] Scheduled Referrals Name Type Priority Associated Diagnoses Orde r Schedule Follow Up ID Outpatient Referral Routine LTBI (latent tuberculosis infection) Expected: 06/08/2025, Expires: 06/10/2026 documented as of this encounter Results * (ABNORMAL) Comprehensive Metabolic Panel, Plasma (05/10/2025 5:05 PM EST) Glucose, Plasma 86 74 - 99 mg/dL 05/10/2025 7:42 PM EST [facility] BUN, Plasma 20 7 - 21 mg/dL 05/10/2025 7:42 PM [facility] Creatinine, Plasma 1.21(H) 0.60 - 1.10 mg/dL 05/10/2025 7:42 PM [facility] BUN/Creatinine Ratio 05/10/2025 7:42 PM [facility] Sodium, Plasma 134(L) 136 - 145 mmol/L 05/10/2025 7:42 PM [facility] Potassium, Plasma 4.2 3.6 - 4.9 mmol/L 05/10/2025 7:42 PM [facility] Chloride, Plasma 98 97 - 107 mmol/L 05/10/2025 7:42 PM [facility] CO2, Plasma 26 22 - 29 mmol/L 05/10/2025 7:42 PM [facility] Anion Gap 10 6 - 16 mmol/L 05/10/2025 7:42 PM [facility] Total Calcium, Plasma 9.3 8.9 - 10.2 mg/dL 05/10/2025 7:42 PM [facility] Total Protein 8.2(H) 6.3 - 7.9 g/dL 05/10/2025 7:42 PM [facility] Albumin, Plasma 3.7 3.5 - 5.2 g/dL 05/10/2025 7:42 PM [facility] AST, Plasma 26 10 - 35 U/L 05/10/2025 7:42 PM [facility] ALT, Plasma 16 10 - 35 U/L 05/10/2025 7:42 PM [facility] Alkaline Phosphatase, Plasma 79 35 - 104 U/L 05/10/2025 7:42 PM [facility] Total Bilirubin, Plasma 0.3 0.2 - 1.1 mg/dL 05/10/2025 7:42 PM [facility] eGFRcr 54.4 mL/min/1.7 3m*2 05/10/2025 7:42 PM [facility] Comment:Reported eGFRcr in m L/min/1.73m2 is based the CKD-EPI 2020 equation that does not use a race coefficient. Blood Venous blood specimen / Unknown Venipuncture / Unknown 05/10/2025 5:05 PM EST 05/10/2025 5:05 PM EST us [facility] BLOOD ORDERABLES Final Result [facility] [address] [place] [address] documented in this encounter Visit Diagnoses Diagnosis LTBI (latent tuberculosis infection)- Primary Nonspecific reaction to tuberculin skin test without active tuberculosis documented in this encounter Additional Health Concerns Assessment Noted Time A fall risk assessment has been complete d for the patient 03/01/2025 11:49 AM EDT A Body Mass Index follow-up plan has been documented for the patient 05/10/2025 5:36 PM EST documented as of this encounter Care Teams Fac Engineer Relationship Specialty Start Date End Date Randy Leigh, [facility] [place] [id number] PCP - General 03/10/25 documented as of this encounter
--- OUTSIDE RECORDS SUMMARY | 2025-05-24 10:22 | XMS_ITS | Encounter Summary ---
Author Organization Healthcare Address [address] [id number] Care Team Providers Care Pack Out Operator Name Role Phone Cyrus Hamilton MD Primary Care Provider [phone] Randy Leigh APRN Primary Care Provider + Encounter Details Date Type Department Care Team (Late st Contact Info) Description 03/09/2025 Results Follow-Up [facility] Medicine Specialties [address], [address] [place] [address] Stephanie Amaya MD [address] [place] [address] Social History Tobacco Use Types Packs/Day Years [...] Description 05/31/2025 8:50 AM EST Office Visit [facility] Dermatology [address] [place] [phone] Don Hung MD [address] [place] [address] 06/02/2025 9:10 AM EST Office Visit [facility] Medicine Specialties [address], 2[address] [place] [phone] 06/08/2025 4:30 PM EST Office Visit [facility] [address] [facility] [place] [address] Lily Eaton PA [address] [facility] [address] [place] [address] 06/20/2025 3:30 PM EST Appointment [facility] 800 [facility] Room [address] [phone] 07/18/2025 3:30 PM EST Appointment [facility] 800 [facility] Room [address] [address] 08/15/2025 3:30 PM EDT Appointment [facility] [address] Room [address] [address] 09/12/2025 3:30 PM EDT Appointment [facility] 800 [facility] Room [address] [address] 10/10/2025 3:30 PM EDT Appointment [facility] 800 [facility] Room [address] [address] documented as of this encounter Visit Diagnoses Not on filedocumented in this encounter Additional Health Concerns Assessment Noted Time A fall risk assessment has been complete d for the patient 03/01/2025 11:49 AM EDT A Body Mass Index follow-up plan has been documented for the patient 03/01/2025 12:58 PM EDT documented as of this encounter Care Teams Pack Out Operator Relationship Specialty Start Date End Date Cyrus Hamilton MD [address] [place] [address] [place] [address] PCP - General Family Medicine 09/17/23 03/09/25 Randy Leigh, TITI 22 [facility] [place] [address] PCP - General 03/10/25 documented as of this encounter
--- OUTSIDE RECORDS SUMMARY | 2025-05-24 10:22 | XMS_ITS | Encounter Summary ---
Author Organization Healthcare Address [address] [place] [address] Care Team Providers Care Cutter And Presser Name Role Phone Oseasliza Lisamaria isabelmonty Goetz APRN Primary Care Provider + Encounter Details Date Type Department Care Team (Latest Contact Info) Description 05/10/2025 Travel Social History Tobacco Use Types Packs/Day Years [...] on file documented as of this encounter Functional Status * Communicable Disease Screening Question Answer Date of Assessment Author Have you been in contact wit h someone who was sick? No / Unsure 05/10/2025 4:23 PM Nichelle Peterson Do you have any of the following new or worsening symptoms? None of these 05/10/2025 4:23 PM Nichelle Peterson * Travel Screening Question Answer Date of Assessment Author Have you traveled internatio ha or domestically in the last month? No 05/10/2025 4:23 PM Nichelle Pascal documented as of this encounter Mental Status * Communicable Disease Screening Question Answer Entry Date Author Have you been in contact wit h someone who was sick? No / Unsure 05/10/2025 4:23 PM EST Nichelle Wign Do you have any of the following new or worsening symptoms? None of these 05/10/2025 4:23 PM EST Nichelle Wing * Travel Screening Question Answer Entry Date Author Have you traveled internatio ha or domestically in the last month? No 05/10/2025 4:23 PM EST Nichelle Diaz documented in this encounter Plan of Treatment Upcoming Encounters Date Type Department Care Team (Late st Contact Info) Description 05/31/2025 8:50 AM EST Office Visit [facility] Dermatology [address] [place] [phone] Don Hung MD [address] [place] [phone] 06/02/2025 9:10 AM EST Office Visit [facility] Medicine Specialties [address], [address]nd [place] [address] 06/08/2025 4:30 PM EST Office Visit [facility] [address] [place] [address] Lily Eaton, ELIF [address] [facility] 100 [place] [address] 06/20/2025 3:30 PM EST Appointment [facility] 800 [facility] Room [address] [address] 07/18/2025 3:30 PM EST Appointment [facility] 800 [facility] Room [address] [address] 08/15/2025 3:30 PM EDT Appointment [facility] 800 [facility] Room [address] [address] 09/12/2025 3:30 PM EDT Appointment [facility] 800 [facility] Room [address] [address] 10/10/2025 3:30 PM EDT Appointment [facility] [address] [place] [address] documented as of this encounter Visit Diagnoses Not on filedocumented in this encounter Additional Health Concerns Assessment Noted Time A fall risk assessment has been complete d for the patient 03/01/2025 11:49 AM EDT A Body Mass Index follow-up plan has been documented for the patient 05/10/2025 5:36 PM EST documented as of this encounter Care Teams Cutter And Presser Relationship Specialty Start Date End Date Randy Leigh, SANITATION WORKER HOSING MACHINERY [address] [facility] [place] [address] PCP - General 03/10/25 documented as of this encounter
--- OUTSIDE RECORDS SUMMARY | 2025-05-24 10:22 | XMS_ITS | Encounter Summary ---
Author Organization [facility] Address [address] [place] [address] Care Team Providers Care Legal Administrative Assistant Name Role Phone Oseasliza Lisamaria isabelmonty Goetz APRN Primary Care Provider + Encounter Details Date Type Department Care Team (Latest Contact Info) Description 05/20/2025 Travel Social History Tobacco Use Types Packs/Day [...] as of this encounter Functional Status * Travel Screening Question Answer Date of Assessment Author Have you traveled internatio ha or domestically in the last month? No 05/20/2025 9:40 PM EST Mycha rt, Generic documented as of this encounter Mental Status * Travel Screening Question Answer Entry Date Author Have you traveled internatio ha or domestically in the last month? No 05/20/2025 9:40 PM EST Mycha rt, Generic documented in this encounter Plan of Treatment Upcoming Encounters Date Type Department Care Team (Late st Contact Info) Description 05/31/2025 8:50 AM EST Office Visit [facility] Dermatology [address] [place] [phone] Don Hung MD [address] [place] [address] 06/02/2025 9:10 AM EST Office Visit [facility] Medicine Specialties [address], 2nd [place] [phone] 06/08/2025 4:30 PM EST Office Visit [facility] [address] [facility] [place] [address] Lily Eaton PA [address] [facility] [address] [place] [address] 06/20/2025 3:30 PM EST Appointment [facility] 800 [facility] Room [address] [phone] 07/18/2025 3:30 PM EST Appointment [facility] [address] Room [address] [address] 08/15/2025 3:30 PM EDT Appointment [facility] 800 [facility] Room [address] [phone] 09/12/2025 3:30 PM EDT Appointment [facility] [address] Room [address] [phone] 10/10/2025 3:30 PM EDT Appointment [facility] 800 [facility] Room [address] [phone] documented as of this encounter Visit Diagnoses Not on filedocumented in this encounter Additional Health Concerns Assessment Noted Time A fall risk assessment has been complete d for the patient 03/01/2025 11:49 AM EDT A Body Mass Index follow-up plan has been documented for the patient 05/10/2025 5:36 PM EST documented as of this encounter Care Teams Legal Administrative Assistant Relationship Specialty Start Date End Date Randy Leigh APRN [address] [facility] [place] [address] PCP - General 03/10/25 documented as of this encounter
--- OUTSIDE RECORDS SUMMARY | 2025-05-24 10:22 | XMS_ITS | Encounter Summary ---
Author Organization Healthcare Address [address] [id number] Care Team Providers Care Gaming Dealer Name Role Phone Randy Leigh APRN Primary Care Provider + Encounter Details Date Type Department Care Team (Late st Contact Info) Description 05/22/2025 Telephone [facility] Medicine Specialties [address], [address] [place] [address] Stephanie Amaya MD [address] [place] [address] Social History Tobacco Use Types [...] on file documented as of this encounter Miscellaneous Notes * Telephone Encounter - Evangelina Winters - 05/22/2025 2:33 PM EST Clinical Concern/Question Reason for Call: pt states she had to stop benlysta and methotrexate and needs to know if she can start taking them again. Her ID provider says she could but pt wants to make sure. Best contact number: [phone] (home) Optimal time of day to reach caller: ANYTIME Additional comments/information from caller: None Note: Please do not reply to this message. Follow-up communication and further actions as a result of this message need to be communicated with the patient directly, if the patient is not active onMyChart. If the patient is active on MyChart, they will receive notification of the communication/outcome via MyChart. documented in this encounter Plan of Treatment Upcoming Encounters Date Type Department Care Team (Late st Contact Info) Description 05/31/2025 8:50 AM EST Office Visit [facility] Dermatology [address] [place] [phone] Don Hung MD [address] [place] [phone] 06/02/2025 9:10 AM EST Office Visit [facility] Medicine Specialties [address], 2[address] [place] [phone] 06/08/2025 4:30 PM EST Office Visit [address] [phone] [place] [address] [place] [address] [address] [place] [address] 06/20/2025 3:30 PM EST Appointment [facility] 800 [facility] Room [address] [phone] 07/18/2025 3:30 PM EST Appointment [facility] 800 [facility] Room [address] [address] 08/15/2025 3:30 PM EDT Appointment [facility] 800 [facility] Room [address] [phone] 09/12/2025 3:30 PM EDT Appointment [facility] [address] [place] [address] 10/10/2025 3:30 PM EDT Appointment [facility] [address] [place] [address] documented as of this encounter Visit Diagnoses Not on filedocumented in this encounter Additional Health Concerns Assessment Noted Time A fall risk assessment has been complete d for the patient 03/01/2025 11:49 AM EDT A Body Mass Index follow-up plan has been documented for the patient 05/10/2025 5:36 PM EST documented as of this encounter Care Teams Gaming Dealer Relationship Specialty Start Date End Date Randy Leigh, OWNER OPERATOR [facility] [place] [address] PCP - General 03/10/25 documented as of this encounter
--- OUTSIDE RECORDS SUMMARY | 2025-05-24 10:22 | XMS_ITS | Encounter Summary ---
Author Organization Healthcare Address [address] [place] [address] Care Team Providers Care Water Supply Engineer Name Role Phone Oseasliza Lisamaria isabelmonty Goetz APRN Primary Care Provider + Encounter Details Date Type Department Care Team (Late st Contact Info) Description 03/21/2025 Telephone [facility] Medicine Specialties [address], 2nd [place] [address] Boom Brooks, Pharm[place] [address] Social History Tobacco Use Types Packs/Day Years [...] encounter Miscellaneous Notes * Telephone Encounter - Boom Brooks, PharmD - 03/21/2025 10:37 AM EDT ----- Message from Aviva sent at 03/21/2025 10:34 AM EDT ----- Regarding: FW: Saphnelo Is patient ok to proceed with scheduling of Saphnelo infusions at this time? ----- Message ----- From: Mariam Tesfaye Sent: 03/21/2025 9:44 AM EDT To: [facility] Spec Pharm Team Subject: Saphnelo It appears the patient was holding infusions due to provider request (per patient). She stated thatthe dr wanted her to have some test run before scheduling. Can you please send encounter to clinic to see if it is ok to proceed with scheduling at this time? Thank you. documented in this encounter Plan of Treatment Upcoming Encounters Date Type Department Care Team (Late st Contact Info) Description 05/31/2025 8:50 AM EST Office Visit [facility] [address] [place] [phone] Don Hung MD [address] [place] [phone] 06/02/2025 9:10 AM EST Office Visit [facility] Medicine Specialties [address], [address] [place] [address] 06/08/2025 4:30 PM EST Office Visit [address] [phone] [place] [address] [place] [address] [address] [place] [address] 06/20/2025 3:30 PM EST Appointment [facility] [address] [facility] Room [address] [address] 07/18/2025 3:30 PM EST Appointment [facility] [address] [facility] Room [address] [address] 08/15/2025 3:30 PM EDT Appointment [facility] [address] [facility] Room [address] [address] 09/12/2025 3:30 PM EDT Appointment [facility] [address] [place] [address] 10/10/2025 3:30 PM EDT Appointment [facility] [address] [place] [address] documented as of this encounter Visit Diagnoses Not on filedocumented in this encounter Additional Health Concerns Assessment Noted Time A fall risk assessment has been complete d for the patient 03/01/2025 11:49 AM EDT A Body Mass Index follow-up plan has been documented for the patient 03/01/2025 12:58 PM EDT documented as of this encounter Care Teams Water Supply Engineer Relationship Specialty Start Date End Date Randy Leigh, TITI [address] [facility] [place] [address] PCP - General 03/10/25 documented as of this encounter
--- OUTSIDE RECORDS SUMMARY | 2025-05-24 10:22 | XMS_ITS | Encounter Summary ---
Author Organization [facility] Address [address] [place] [address] Care Team Providers Care Paint Line Production Supervisor Name Role Phone Randy Leigh MEDICAID BUSINESS ANALYST Primary Care Provider + Encounter Details Date Type Department Care Team (Late st Contact Info) Description 05/22/2025 Telephone [facility] 800 [facility] Room [address] [place] [address] Mali Godfrey, MEDICAID BUSINESS ANALYST [address] [address] Social History Tobacco Use Types Packs/Day Years [...] encounter Miscellaneous Notes * Telephone Encounter - Mali Godfrey APRN - 05/22/2025 1:17 PM EST [facility] Pre-Infusion Screening Clara Hoang has an appointment for S[facility]o infusion on 05/23/2025. MEDICAID BUSINESS ANALYST called patient to complete pre-infusion screening questions. Unable to speak with patient. Left voicemail to remind patient of appt date, time, and location. Duration of phone call: 1 minutes Mali Godfrey APRN [facility] documented in this encounter Plan of Treatment Upcoming Encounters Date Type Department Care Team (Late st Contact Info) Description 05/31/2025 8:50 AM EST Office Visit [facility] Dermatology [address] [place] [address] Don Hung MD [address] [place] [phone] 06/02/2025 9:10 AM EST Office Visit [facility] Medicine Specialties [address], [address]nd [place] [address] 06/08/2025 4:30 PM EST Office Visit [facility] [address] [place] [address] Lily Eaton PA [address] [facility] [address] [place] [address] 06/20/2025 3:30 PM EST Appointment [facility] 800 [facility] Room [address] [address] 07/18/2025 3:30 PM EST Appointment [facility] 800 [facility] Room [address] [address] 08/15/2025 3:30 PM EDT Appointment [facility] 800 [facility] Room [address] [address] 09/12/2025 3:30 PM EDT Appointment [facility] 800 [facility] Room [address] [address] 10/10/2025 3:30 PM EDT Appointment [facility] [address] [address] documented as of this encounter Visit Diagnoses Not on filedocumented in this encounter Additional Health Concerns Assessment Noted Time A fall risk assessment has been complete d for the patient 03/01/2025 11:49 AM EDT A Body Mass Index follow-up plan has been documented for the patient 05/10/2025 5:36 PM EST documented as of this encounter Care Teams Paint Line Production Supervisor Relationship Specialty Start Date End Date Randy Leigh, MEDICAID BUSINESS ANALYST [address] [facility] [place] [address] PCP - General 03/10/25 documented as of this encounter
--- OUTSIDE RECORDS SUMMARY | 2025-05-24 10:22 | XMS_ITS | Encounter Summary ---
Author Organization Healthcare Address [address] [id number] Care Team Providers Care Jai Alai Player Name Role Phone Cyrus Hamilton MD Primary Care Provider [phone] Randy Leigh APRN Primary Care Provider + Encounter Details Date Type Department Care Team (Late st Contact Info) Description 03/07/2025 Telephone [facility] Medicine Specialties [address], [address] [place] [address] Stephanie Amaya MD [address] [place] [address] Social History Tobacco Use Types [...] encounter Miscellaneous Notes * Telephone Encounter - Ольга Santacruz RN - 03/09/2025 11:56 AM EDT Duplicate encounter. * Telephone Encounter - Cassandra Montano - 03/07/2025 10:08 AM EDT Clinical Concern/Question Reason for Call: Pt is returning your call Best contact number: [phone] (mobile) Optimal time of day to reach caller: [...] [facility] [address] [place] [address] Don Hung MD [address] [place] [phone] 06/02/2025 9:10 AM EST Office Visit [facility] Medicine Specialties [address], [address] [place] [phone] 06/08/2025 4:30 PM EST Office Visit [address] [place] [address] [place] [address] Lily Etaon PA [address] [facility] [address] [place] [address] 06/20/2025 3:30 PM EST Appointment [facility] [address] [place] [phone] 07/18/2025 3:30 PM EST Appointment [facility] [address] [address] 08/15/2025 3:30 PM EDT Appointment [facility] [address] [place] [address] 09/12/2025 3:30 PM EDT Appointment [facility] [address] [place] [address] 10/10/2025 3:30 PM EDT Appointment [facility] [address] [place] [address] documented as of this encounter Visit Diagnoses Not on filedocumented in this encounter Additional Health Concerns Assessment Noted Time A fall risk assessment has been complete d for the patient 03/01/2025 11:49 AM EDT A Body Mass Index follow-up plan has been documented for the patient 03/01/2025 12:58 PM EDT documented as of this encounter Care Teams Jai Alai Player Relationship Specialty Start Date End Date Cyrus Hamilton MD [address] [place] [address] PCP - General Family Medicine 09/17/23 03/09/25 Randy Leigh APRN [address] [place] [address] [place] [address] PCP - General 03/10/25 documented as of this encounter
--- OUTSIDE RECORDS SUMMARY | 2025-05-24 10:22 | XMS_ITS | Clinical Summary ---
Author Organization [facility] Address [address] 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 1 Active gabapentin (Neurontin) 100 MG capsule Take 1 capsule (100 mg total) by mouth 3 (three) times a day. 90 capsule 1 2 Active Additional Information Patient not taking.Reported on 04/10/2025 pantoprazole (Protonix) 40 MG EC tablet Take [...] SHORTNESS OF BREATH OR WHEEZING. 2 Active gabapentin (Neurontin) 100 MG capsule 1 Active oxybutynin XL (Ditropan-XL) 10 MG 24 hr tablet Take 1 tablet (10 mg) by mouth 1 (one) time each day. 2 Active Symbicort 160-4.5 MCG/ACT inhaler Inhale 2 puffs 2 (two) times a day. 2 Active glipiZIDE XL 5 MG 24 hr tablet Take 1 tablet (5 mg) by mouth 1 (one) time each day. 4 Active mupirocin (Bactroban) 2 % ointment APPLY SMALL AMOUNT TOPICALLY TO THE AFFECTED AREA THREE TIMES DAILY 4 Active ergocalciferol 1.25 MG (68269 UT) capsule TAKE 1 CAPSULE BY MOUTH [...] fingertips twice daily. 30 g 5 Active hydroxychloroquin e (Plaquenil) 200 MG tabletIndications :Systemic lupus erythematosus with organ system involvement (CMS/HCC) TAKE 1 TABLET(200 MG) BY MOUTH TWICE DAILY 180 tablet 2 5 Active cyanocobalamin (Vitamin B-12) 1000 MCG/ML injection 1ml injection every day for 1 week, 1ml every week for 1 month, then 1 ml every month. 5 Active folic acid (Folvite) 1 MG tablet Take 1 tablet by mouth daily. 5 Active methotrexate 2.5 MG tabletIndications :Systemic lupus erythematosus with organ system involvement (CMS/HCC),Arthrit is,Nodule of skin of hand Take 6 tablets (15 mg total) by mouth 1 time per week. Follow directions carefully, and ask to explain any part you do not understand. Take exactly as directed. 72 tablet 2 5 Active triamcinolone (Kenalog) 0.1 % creamIndications: Systemic lupus erythematosus with organ system involvement (CMS/HCC),Arthrit is,Nodule of skin of hand Apply to fingertips 1-2 times daily as needed 45 g 5 Active pyridoxine (Vitamin B-6) 50 MG tabletIndications :LTBI (latent tuberculosis infection) Take 1 tablet by mouth daily. 30 tablet 2 5 Active isoniazid (Nydrazid) 300 MG tabletIndications :LTBI (latent tuberculosis infection) Take 3 tablets by mouth every 7 days. 12 tablet 2 5 Active Rifapentine 150 MG tabletIndications :LTBI (latent tuberculosis infection) Take 900 mg by mouth every 7 days. 24 tablet 2 5 026 Active Active Problems Problem Noted Date Diagnosed Date Xerostomia 02/06/2021 Encounter for therapeutic drug monitoring 2020 Carpal tunnel syndrome 01/12/2020 Seropositive rheumatoid arthritis of multiple si brian 12/08/2018 Macromastia 11/05/2016 Headache 07/16/2016 Alopecia 04/16/2015 Thrombocytopenia 08/15/2014 Weight gain due to medication 04/17/2014 Leucopenia 12/07/2013 DLE (discoid lupus erythematosus) 10/11/2013 Primary generalized (osteo)arthritis 12/21/2012 Depression 09/22/2012 Gastro-esophageal reflux disease without esophag itis 09/22/2012 Systemic lupus erythematosus with organ system i nvolvement 09/22/2012 Resolved Problems Problem Noted Date Diagnosed Date Resolved Date High risk medication use 10/31/2020 Insomnia 06/10/2016 02/12/2025 Encounters Date Type Department Care Team Description 05/22/2025 Telephone [facility] Medicine Specialties [address] [place] [address] Stephanie Amaya MD 05/22/2025 Telephone [facility] [address] [place] [id number] Mali Godfrey, TITI 05/20/2025 Travel 05/17/2025 Refill [facility] Medicine Specialties [address] [place] [address] Stephanie Amaya MD Systemic lupus erythematosus with organ system involvement ([facility]) 05/11/2025 Results Follow-Up [address] [address] Lily Eaton PA 05/10/2025 4:30 PM EST Office Visit [address] [address] Lily Eaton PA LTBI (latent tuberculosis infection) (Primary Dx) 05/10/2025 Travel 04/10/2025 3:00 PM EST Office Visit [address] [address] Lily Eaton PA LTBI (latent tuberculosis infection) (Primary Dx) 04/10/2025 Travel 03/21/2025 Telephone [facility] Medicine Specialties [address] [place] [address] Boom Brooks, PharmD 03/20/2025 2:37 PM EDT - 03/20/2025 11:59 PM EDT Hospital Encounter [facility] [address] [place] [address] Systemic lupus erythematosus with organ system involvement (CMS/HCC); Arthritis; Nodule of skin of hand Discharge Disposition: Home or Self Care 03/20/2025 Travel 03/09/2025 Results Follow-Up [facility] Medicine Specialties [address] [place] [address] Stephanie Amaya MD 03/08/2025 2:45 PM EDT - 03/08/2025 11:59 PM EDT Hospital Encounter [facility] Radiology [address] [place] [address] Positive 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 Discharge Disposition: Home or Self Care 03/08/2025 Travel 03/07/2025 Telephone [facility] Medicine Specialties [address] [place] [address] Stephanie Amaya MD 03/03/2025 Orders Only [facility] Medicine Specialties [address] [place] [address] Stephanie Amaya MD Positive 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 (Primary Dx) 03/02/2025 Results Follow-Up [facility] Medicine Specialties [address] [place] [address] Stephanie Amaya MD 03/01/2025 11:30 AM EDT Office Visit [facility] Medicine Specialties [address] [place] [address] Stephanie Amaya MD Nodule of skin of hand (Primary Dx); Systemic lupus erythematosus with organ system involvement (CMS/HCC); Arthritis 03/01/2025 Telephone [facility] [address] [place] [phone] Keshia Frost, PharmD [facility] 03/01/2025 Orders Only [facility] Medicine Specialties [address] [place] [address] Damari Lopez DO Systemic lupus erythematosus with organ system involvement (CMS/HCC) (Primary Dx) 03/01/2025 Orders Only [facility] Medicine Specialties [address] [place] [address] Damari Lopez DO 03/01/2025 Travel 02/24/2025 Travel from Last 3 Months Immunizations Immunization Administration Dates Next Due Hep B, adult 08/01/2014,12/30/2013,11/30/2013 Influenza, seasonal, injectable 02/13/2009 Influenza, seasonal, injecta ble, preservative free 03/01/2025,02/08/2024 Pneumococcal 20-joe Conj Vaccine 03/01/2025 Pneumococcal Polysaccharide PPV23 11/30/2013 TD (adult), 2 Lf tetanus tox oid, preservative free, adsorbed 02/22/1996 Tdap 02/08/2024,11/30/2013 Zoster, Recombinant 03/01/2025 Family History Medical History Relation Name Comments [...] F) 05/10/2025 4:27 PM EST Respiratory Rate 16 08/12/2024 8:29 AM EDT Oxygen Saturation 98% 05/10/2025 4:27 PM EST Inhaled Oxygen Concentration - - Weight 75.7 kg (166 lb 14.2 oz) 05/10/2025 4:27 PM EST Height 165.1 cm (5' 5 ) 05/10/2025 4:27 PM EST Body Mass Index 27.77 05/10/2025 4:27 PM EST Plan of Treatment Upcoming Encounters Date Type Department Care Team (Late st Contact Info) Description 05/31/2025 8:50 AM EST Office Visit [facility] [address] [place] [address] Don Hung MD [address] [facility] [address] [place] [address] 06/02/2025 9:10 AM EST Office Visit [facility] Medicine Specialties [address] [place] [address] 06/08/2025 4:30 PM EST Office Visit [facility] [address] [place] [address] Lily Eaton PA [address] [facility] [address] [place] [address] 06/20/2025 3:30 PM EST Appointment [facility] [address] [facility] Room [address] [address] 07/18/2025 3:30 PM EST Appointment [facility] [address] [facility] Room [address] [address] 08/15/2025 3:30 PM EDT Appointment [facility] [address] [facility] Room [address] [address] 09/12/2025 3:30 PM EDT Appointment [facility] [address] [facility] Room [address] [address] 10/10/2025 3:30 PM EDT Appointment [facility] [address] [facility] Room [address] [address] Health Maintenance Due Date Last Done Comments [facility]-HIV Screening 1974 [facility]-Infant/Child/Adol SDOH Screenings 1974 [facility]- SDOH Screenings 1992 [facility]-Adult SDOH Screenings 1992 CT Colonography 2019 Colonoscopy 2019 FIT-DNA 2019 FIT 2019 FOBT 2019 Sigmoidoscopy 2019 [facility]-Colorectal Cancer Screening 2019 [id number] Vaccine (3 - Pfizer risk series) 12/31/2020 12/03/2020, 11/05/2020 [facility]-Breast Cancer Screening 03/18/202404/26, 05/24/2020, 04/12/2018 [facility]-Zoster Vaccines (1 of 2) 03/01/2025 03/01/2025 [facility]-Depression Screening 04/10/2026 04/10/2025, 0601/2021 [facility]-DTaP,Tdap,and Td Vaccines (3 - Td or Tdap) 02/07/2034 02/08/2024, 11/30/2013, 02/22/1996 [facility]-Hepatitis B Vaccines Completed 015, 12/30/2013, 11/30/2013 [facility]-Hepatitis C Screening Completed 2024, 09/17/2023, 05/14/2022 [facility]-Influenza Vaccine Completed 03/01/2025 , 02/08/2024, 02/13/2009 [facility]-Pneumococcal Vaccine: 50+ Years Completed 03/01/2025, 11/30/2013 [facility]-Obesity Intervention Completed 025, 04/10/2025, 04/10/2025, Additional history exists HPV Vaccines (No Doses Required) Completed [facility]-HIB Vaccines Aged Out No longer e [...] Procedure Name Priority Date/Time Associated Diagnosis Comments COMPREHENSIVE METABOLIC PANEL, PLASMA Routine 05/10/2025 5:05 PM EST LTBI (latent tuberculosis infection) CBC WITH AUTO DIFFERENTIAL Routine 04/10/2025 3:41 PM EST LTBI (latent tuberculosis infection) COMPREHENSIVE METABOLIC PANEL, PLASMA Routine 04/10/2025 3:41 PM EST LTBI (latent tuberculosis infection) US EXTREMITY LIMITED MSK OR SOFT TISSUE Routine 03/20/2025 3:42 PM EDT Systemic lupus erythematosus with organ system involvement (CMS/HCC) Arthritis Nodule of skin of hand US EXTREMITY LIMITED MSK OR SOFT TISSUE Routine 03/20/2025 3:42 PM EDT Systemic lupus erythematosus with organ system involvement (CMS/HCC) Arthritis Nodule of skin of hand XR CHEST 2 VIEWS Routine 03/08/2025 2:56 PM EDT Positive 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 URINALYSIS MICROSCOPIC FOR UA REFLEX Routine 03/01/2025 1:26 PM EDT Systemic lupus erythematosus with organ system involvement (CMS/HCC) Arthritis Nodule of skin of hand PROTEIN, URINE, RANDOM WITH CREATININE Routine 03/01/2025 1:26 PM EDT Systemic lupus erythematosus with organ system involvement (CMS/HCC) Arthritis Nodule of skin of hand URINALYSIS WITH REFLEX MICROSCOPIC Routine 03/01/2025 1:26 PM EDT Systemic lupus erythematosus with organ system involvement (CMS/HCC) Arthritis Nodule of skin of hand ACUTE HEPATITIS PANEL Routine 03/01/2025 1:20 PM EDT High risk medication use QUANTIFERON TB GOLD PLUS Routine 03/01/2025 1:20 PM EDT High risk medication use COMPREHENSIVE METABOLIC PANEL, PLASMA Routine 03/01/2025 1:20 PM EDT Systemic lupus erythematosus with organ system involvement (CMS/HCC) Arthritis Nodule of skin of hand CBC WITH AUTO DIFFERENTIAL Routine 03/01/2025 1:20 PM EDT Systemic lupus erythematosus with organ system involvement (CMS/HCC) Arthritis Nodule of skin of hand DOUBLE-STRANDED DNA (DSDNA) ANTIBODY, IGG BY IFA (SO) Routine 03/01/2025 1:20 PM EDT Systemic lupus erythematosus with organ system involvement (CMS/HCC) Arthritis Nodule of skin of hand C4 COMPLEMENT Routine 03/01/2025 1:20 PM EDT Systemic lupus erythematosus with organ system involvement (CMS/HCC) Arthritis Nodule of skin of hand C3 COMPLEMENT Routine 03/01/2025 1:20 PM EDT Systemic lupus erythematosus with organ system involvement (CMS/HCC) Arthritis Nodule of skin of hand from Last 3 Months Results * (ABNORMAL) Comprehensive Metabolic Panel, Plasma (05/10/2025 5:05 PM EST) Only the most recent of3 resultswithin the time period is included. Glucose, Plasma 86 74 - 99 mg/dL 05/10/2025 7:42 PM EST [facility] BUN, Plasma 20 7 - 21 mg/dL 05/10/2025 7:42 PM EST [facility] Creatinine, Plasma 1.21(H) 0.60 - 1.10 mg/dL 05/10/2025 7:42 PM EST [facility] BUN/Creatinine Ratio 17 05/10/2025 7:42 PM EST [facility] Sodium, Plasma 134(L) 136 - 145 mmol/L 05/10/2025 7:42 PM EST [facility] Potassium, Plasma 4.2 3.6 - 4.9 mmol/L 05/10/2025 7:42 PM EST [facility] Chloride, Plasma 98 97 - 107 mmol/L 05/10/2025 7:42 PM EST [facility] CO2, Plasma 26 22 - 29 mmol/L 05/10/2025 7:42 PM EST [facility] Anion Gap 10 6 - 16 mmol/L 05/10/2025 7:42 PM EST [facility] Total Calcium, Plasma 9.3 8.9 - 10.2 mg/dL 05/10/2025 7:42 PM EST [facility] Total Protein 8.2(H) 6.3 - 7.9 g/dL 05/10/2025 7:42 PM EST [facility] Albumin, Plasma 3.7 3.5 - 5.2 g/dL 05/10/2025 7:42 PM EST [facility] AST, Plasma 26 10 - 35 U/L 05/10/2025 7:42 PM EST [facility] ALT, Plasma 16 10 - 35 U/L 05/10/2025 7:42 PM EST [facility] Alkaline Phosphatase, Plasma 79 35 - 104 U/L 05/10/2025 7:42 PM EST [facility] Total Bilirubin, Plasma 0.3 0.2 - 1.1 mg/dL 05/10/2025 7:42 PM EST [facility] eGFRcr 54.4 mL/min/1.7 3m*2 05/10/2025 7:42 PM EST [facility] Comment:Reported eGFRcr in m L/min/1.73m2 is based the CKD-EPI 2020 equation that does not use a race coefficient. Blood Venous blood specimen / Unknown Venipuncture / Unknown 05/10/2025 5:05 PM EST 05/10/2025 5:05 PM EST us Lily ASENCIO LAB BLOOD ORDERABLES Final Result [facility] [address] [place] [address] * (ABNORMAL) CBC and Differential (04/10/2025 3:41 PM EST) Only the most recent of2 resultswithin the time period is included. WBC Count 3.49(L) 3.70 - 10.30 10*3/uL LAB HEMATOLOGY METHOD 04/10/2025 7:36 PM EST [facility] RBC Count 3.96 3.90 - 5.20 10*6/uL LAB HEMATOLOGY METHOD 04/10/2025 7:36 PM EST [facility] HGB 10.9(L) 11.2 - 15.7 g/dL LAB HEMATOLOGY METHOD 04/10/2025 7:36 PM EST [facility] HCT 34.8 34.0 - 45.0 % LAB HEMATOLOGY METHOD 04/10/2025 7:36 PM EST [facility] Platelet Count 167 155 - 369 10*3/uL LAB HEMATOLOGY METHOD 04/10/2025 7:36 PM EST [facility] MCV 88 79 - 98 fL LAB HEMATOLOGY METHOD 04/10/2025 7:36 PM [facility] MCH 27.5 26.0 - 32.0 pg LAB HEMATOLOGY METHOD 04/10/2025 7:36 PM EST [facility] MCHC 31.3 30.7 - 35.5 g/dL LAB HEMATOLOGY METHOD 04/10/2025 7:36 PM EST [facility] RDW 13.8 11.5 - 14.5 % LAB HEMATOLOGY METHOD 04/10/2025 7:36 PM EST [facility] MPV 9.9 8.8 - 12.5 fL LAB HEMATOLOGY METHOD 04/10/2025 7:36 PM EST [facility] nRBC 0.0 <=0.0 per 100 WBCs LAB HEMATOLOGY METHOD 04/10/2025 7:36 PM EST [facility] Differential Type Automated LAB HEMATOLOGY METHOD 04/10/2025 7:36 PM [facility] Neutrophils % 48 % LAB HEMATOLOGY METHOD 04/10/2025 7:36 PM EST [facility] Lymphocytes % 36 % LAB HEMATOLOGY METHOD 04/10/2025 7:36 PM [facility] Monocytes % 16 % LAB HEMATOLOGY METHOD 04/10/2025 7:36 PM [facility] Eosinophils % 0 % LAB HEMATOLOGY METHOD 04/10/2025 7:36 PM [facility] Basophils % 0 % LAB HEMATOLOGY METHOD 04/10/2025 7:36 PM [facility] Immature Granulocytes % 0 % LAB HEMATOLOGY METHOD 04/10/2025 7:36 PM EST [facility] Neutrophils Absolute 1.65 1.60 - 6.10 10*3/uL LAB HEMATOLOGY METHOD 04/10/2025 7:36 PM EST [facility] Lymphocytes Absolute 1.27 1.20 - 3.90 10*3/uL LAB HEMATOLOGY METHOD 04/10/2025 7:36 PM EST [facility] Monocytes Absolute 0.54 0.30 - 0.90 10*3/uL LAB HEMATOLOGY METHOD 04/10/2025 7:36 PM EST [facility] Eosinophils Absolute 0.01 0.00 - 0.50 10*3/uL LAB HEMATOLOGY METHOD 04/10/2025 7:36 PM EST [facility] Basophils Absolute 0.01 0.00 - 0.10 10*3/uL LAB HEMATOLOGY METHOD 04/10/2025 7:36 PM EST [facility] Immature Granulocytes Absolute 0.01 0.00 - 0.06 10*3/uL LAB HEMATOLOGY METHOD 04/10/2025 7:36 PM EST [facility] Blood Venous blood specimen / Unknown Venipuncture / Unknown 04/10/2025 3:41 PM EST 04/10/2025 3:44 PM EST Narrative [facility] - 04/10/2025 7:36 PM EST Therapeutic decision making should be based on absolute values, rather than percentages. us Lily ASENCIO LAB BLOOD ORDERABLES Final Result [facility] [address] [place] [address] * US Extremity Limited MSK or Soft Tissue Right; Hand (03/20/2025 3:42 PM EDT) Only the most recent of2 resultswithin the time period is included. Anatomical Region Laterality Modality Upper Extremities, Lower Extremities Ultrasound Impressions 03/20/2025 4:02 PM EDT Nonspecific soft tissue nodules in the palmar aspect of the hands. CRITICAL RESULT: No. COMMUNICATION: Per this written report. Drafted by Shane Jacobs MD on 03/20/2025 3:54 PM Final report signed by Shane Jacobs MD on 03/20/2025 4:02 PM Narrative 03/20/2025 4:02 PM EDT CLINICAL INDICATION: palmar nodules on fingers and palm TECHNIQUE: Multiplanar lou scale survey sonographic imaging of the hands was performed. COMPARISON: None. FINDINGS: There are at least 6 soft tissue hypoechoic nodules in the palmar aspect of the hands, in the first, second and third fingers of the left hand and the second, third and fourth fingers of the right hand. The largest measuring 1.2 cm in the right index finger and 1.3 cm in the right middle finger. No significant vascularity on color Doppler exam. Procedure Note Kajimura Chinelati, Shane Kenny, MD - 03/20/2025 CLINICAL INDICATION: palmar nodules on fingers and palm TECHNIQUE: Multiplanar lou scale survey sonographic imaging of the hands wasperformed. COMPARISON: None. FINDINGS: There are at least 6 soft tissue hypoechoic nodules in the palmar aspectof the hands, in the first, second and third fingers of the left hand andthe second, third and fourth fingers of the right hand. The largestmeasuring 1.2 cm in the right index finger and 1.3 cm in the right middlefinger. No significant vascularity on color Doppler exam. IMPRESSION: Nonspecific soft tissue nodules in the palmar aspect of the hands. CRITICAL RESULT: No. COMMUNICATION: Per this written report. Drafted by hSane Jacobs MD on 03/20/2025 3:54 PM Final report signed by Shane Jacobs MD on 54:02 PM us Damari Antic DO IMG US PROCEDURES Final Result * XR Chest 2 Views (03/08/2025 2:56 PM EDT) Anatomical Region Laterality Modality Chest Digital Radiogra phy Impressions 03/08/2025 3:19 PM EDT No evidence of active or remote mycobacterial infection. CRITICAL RESULT: No. COMMUNICATION: Per this written report. By electronically signing this report, I, the attending physician, attest that I have personally reviewed the images/data for the above examination(s) and agree with the final edited report. Drafted by Gonzalez Harrell MD on 03/08/2025 3:13 PM Final report signed by Miriam Moran MD on 03/08/2025 3:19 PM Narrative 03/08/2025 3:19 PM EDT CLINICAL INDICATION: Positive Quantiferon test, on Immunomodulatory medication TECHNIQUE: XR CHEST 2 VIEWS COMPARISON: Chest radiograph 01/22/2016 FINDINGS: Cardiac silhouette and mediastinal contours within normal limits. No pneumothorax or pleural effusions. No acute airspace consolidations. No pathologic calcifications. Procedure Note Miriam Moran MD - 03/08/2025 CLINICAL INDICATION: Positive Quantiferon test, on Immunomodulatory medication TECHNIQUE: XR CHEST 2 VIEWS COMPARISON: Chest radiograph 01/22/2016 FINDINGS: Cardiac silhouette and mediastinal contours within normal limits. Nopneumothorax or pleural effusions. No acute airspace consolidations. Nopathologic calcifications. IMPRESSION: No evidence of active or remote mycobacterial infection. CRITICAL RESULT: No. COMMUNICATION: Per this written report. By electronically signing this report, I, the attending physician, jose I have personally reviewed the images/data for the aboveexamination(s) and agree with the final edited report. Drafted by Gonzalez Harrell MD on 03/08/2025 3:13 PM Final report signed by Miriam Moran MD on 03/08/2025 3:19 PM us Damari Lopez DO IMG XR PROCEDURES Final Result * Urinalysis Microscopic Examination (03/01/2025 1:26 PM EDT) Urine Urine specimen obtained by clean catch procedure / Unknown Non-blood Collection / Unknown 03/01/2025 1:26 PM EDT 03/01/2025 1:26 PM EDT us Damari Lopez DO LAB URINE ORDERABLES Final Resu lt [facility] [address] [place] [address] * Protein, Random, Urine with Creatinine (03/01/2025 1:26 PM EDT) Protein, Urine 7 mg/dL 03/01/2025 3:15 PM EDT [facility] Creatinine, Urine 54 mg/dL 03/01/2025 3:15 PM EDT [facility] Protein/Creati nine Ratio 0.1 mg/mg Creat 03/01/2025 3:15 PM EDT [facility] Urine Urine specimen obtained by clean catch procedure / Unknown Non-blood Collection / Unknown 03/01/2025 1:26 PM EDT 03/01/2025 1:26 PM EDT us Damari Lopez DO LAB URINE ORDERABLES Final Resu lt [facility] [address] [place] [address] * (ABNORMAL) Urinalysis with reflex microscopic (Culture NOT Included) (03/01/2025 1:26 PM EDT) Color, Urine Yellow LAB URINALYSIS - AUTOMATED METHOD 03/01/2025 3:09 PM EDT [facility] Clarity, Urine Clear LAB URINALYSIS - AUTOMATED METHOD 03/01/2025 3:09 PM EDT [facility] Spec [place], Urine 1.016 1.005 - 1.030 LAB URINALYSIS - AUTOMATED METHOD 03/01/2025 3:09 PM EDT [facility] pH, Urine 6.0 5.0 - 8.0 LAB URINALYSIS - AUTOMATED METHOD 03/01/2025 3:09 PM EDT [facility] Protein, Urine Negative Negative mg/dL LAB URINALYSIS - AUTOMATED METHOD 03/01/2025 3:09 PM EDT [facility] Glucose, Urine >=1000(A) Negative mg/dL LAB URINALYSIS - AUTOMATED METHOD 03/01/2025 3:09 PM EDT [facility] Ketones, Urine Negative Negative mg/dL LAB URINALYSIS - AUTOMATED METHOD 03/01/2025 3:09 PM EDT [facility] Blood, Urine Negative Negative LAB URINALYSIS - AUTOMATED METHOD 03/01/2025 3:09 PM EDT [facility] Bilirubin, Urine Negative Negative LAB URINALYSIS - AUTOMATED METHOD 03/01/2025 3:09 PM EDT [facility] Urobilinogen, Urine 0.2 0.2 to 1.0 mg/dL LAB URINALYSIS - AUTOMATED METHOD 03/01/2025 3:09 PM EDT [facility] Leukocytes, Urine Trace(A) Negative LAB URINALYSIS - AUTOMATED METHOD 03/01/2025 3:09 PM EDT [facility] Nitrite, Urine Negative Negative LAB URINALYSIS - AUTOMATED METHOD 03/01/2025 3:09 PM EDT [facility] RBC, Urine 2 0 to 3 /HPF 03/01/2025 3:09 PM EDT [facility] Comment:This result was prev iously suppressed from the chart. WBC, Urine 0 - 5 0 to 5 /HPF 03/01/2025 3:09 PM EDT [facility] Comment:This result was prev iously suppressed from the chart. Squamous Epithelial Cells 3 - 5 0 to 5 /HPF 03/01/2025 3:09 PM EDT [facility] Comment:This result was prev iously suppressed from the chart. Hyaline Casts 0 - 2 0 to 5 /LPF 03/01/2025 3:09 PM EDT [facility] Comment:This result was prev iously suppressed from the chart. Bacteria, Urine Present Negative 03/01/2025 3:09 PM EDT [facility] Comment:This result was prev iously suppressed from the chart. Urine Urine specimen obtained by clean catch procedure / Unknown Non-blood Collection / Unknown 03/01/2025 1:26 PM EDT 03/01/2025 1:26 PM EDT Narrative [facility] - 03/01/2025 3:09 PM EDT Performed by manual method us Damari Lopez LAB URINE ORDERABLES Final Resu lt [facility] [address] [place] [address] * (ABNORMAL) Double-Stranded DNA (dsDNA) Antibody, IgG by IFA (03/01/2025 1:20 PM EDT) Double-Strande d DNA (dsDNA) Ab IgG IFA 1:320(H) <1:10 03/06/2025 4:15 PM EDT [facility] ([facility]) Blood Venous blood specimen / Unknown Venipuncture / Unknown 03/01/2025 1:20 PM EDT 03/01/2025 1:21 PM EDT Narrative [facility] ([place]) - 03/06/2025 4:15 PM EDT INTERPRETIVE INFORMATION: Double-Stranded DNA (dsDNA) Antibody, [...] recommendations for testing may be found at https://Teamie/[email or web address]-[email or web address]. Performed By: [employer] [address] [place] [address] Director Of Restaurant Operations: Boom Zurita MD, PhD CLIA Number: [id number] [employer] LAB BLOOD ORDERABLES Final Resu lt Performing Organization Address City/[facility]/ZIP Co de Phone Number [facility] ([place]) [address] [place] [address] * Hepatitis panel, acute (03/01/2025 1:20 PM EDT) [facility] Hepatitis B Surf Antigen Negative Negative 03/01/2025 5:35 PM EDT [facility] Hepatitis C Antibody Negative Negative 03/01/2025 5:35 PM EDT [facility] Hepatitis A Antibody IgM Negative Negative 03/01/2025 5:35 PM EDT [facility] Hepatitis B Core Antibody IgM Negative Negative 03/01/2025 5:35 PM EDT [facility] Blood Venous blood specimen / Unknown Venipuncture / Unknown 03/01/2025 1:20 PM EDT 03/01/2025 1:21 PM EDT [employer] [facility] BLOOD ORDERABLES Final Resu lt [facility] [address] [place] [address] * (ABNORMAL) Quantiferon TB Gold Plus (03/01/2025 1:20 PM EDT) [facility] Quantiferon TB Gold Plus Result Positive( A) Negative 03/02/2025 9:57 PM EDT [facility] TB Nill Value 0.725 IU/mL 03/02/2025 9:57 PM EDT [facility] TB Antigen 1 2.685 IU/mL 03/02/2025 9:57 PM EDT [facility] TB Antigen 2 0.108 IU/mL 03/02/2025 9:57 PM EDT [facility] TB Mitogen 9.145 IU/mL 03/02/2025 9:57 PM EDT [facility] Blood Venous blood specimen / Unknown Venipuncture / Unknown 03/01/2025 1:20 PM EDT 03/01/2025 1:21 PM EDT Narrative [facility] - 03/02/2025 9:57 PM EDT Responses to the Mitogen positive control and occasionally to TB antigen can be above the assay range. For calculation purposes: IFN-gamma values > 10 IU/mL are handled as 10 IU/mL. [facility] [employer] [facility] BLOOD ORDERABLES Final Resu lt Performing Organization Address City/[facility]/ZIP Co de Phone Number [facility] [address] [place] [address] * (ABNORMAL) C3 Complement (03/01/2025 1:20 PM EDT) C3 Complement 77(L) 84 - 166 mg/dL 03/01/2025 4:19 PM EDT [facility] Blood Venous blood specimen / Unknown Venipuncture / Unknown 03/01/2025 1:20 PM EDT 03/01/2025 1:21 PM EDT [facility] [employer] [facility] BLOOD ORDERABLES Final Resu lt [facility] [address] [place] [address] * (ABNORMAL) C4 Complement (03/01/2025 1:20 PM EDT) C4 Complement 10(L) 13 - 36 mg/dL 03/01/2025 4:19 PM EDT [facility] Blood Venous blood specimen / Unknown Venipuncture / Unknown 03/01/2025 1:20 PM EDT 03/01/2025 1:21 PM EDT us Damari Antic DO LAB BLOOD ORDERABLES Final Resu lt [facility] [address] [place] [address] from Last 3 Months Insurance [employer] Care Teams Raking Machine Operator Relationship Specialty Start Date End Date Randy Leigh, MICROFILM CLERK [address] [place] [address] PCP - General 03/10/25
--- OUTSIDE RECORDS SUMMARY | 2025-05-24 10:22 | XMS_ITS | Encounter Summary ---
Author Organization Healthcare Address [address] [id number] Care Team Providers Care Burrer Marker Axle Name Role Phone Oseasliza Lisamaria isabelmonty Goetz APRN Primary Care Provider + Reason for Visit * Reason Onset Date Comments Med Refill 05/17/2025 Encounter Details Date Type Department Care Team (Late st Contact Info) Description 05/17/2025 Refill [facility] [address] [place] [phone] Stephanie Amaya MD [address] [place] [phone] Systemic lupus erythematosus with organ system involvement (CMS/HCC) Social History Tobacco Use Types Packs/Day Years [...] encounter Miscellaneous Notes * Telephone Encounter - Don Stallworth, PharmD - 05/17/2025 10:06 AM EST [facility] Discharge of Clinical Services Specialty Medications and their indications: Benlysta - SLE Reason(s) for discharge: Discontinued/ Completed Therapy Summary of care provided: Benefits investigation, Prior authorization, Education, and Financial assistance Patient's ongoing unmet needs/care: Patient has no ongoing unmet needs. Instructions or referral information provided to the patient/responsible republican: No referral information needed- Medication was stopped Don Stallworth PharmD 05/17/2025 10:06 AM documented in this encounter Plan of Treatment Upcoming Encounters Date Type Department Care Team (Late st Contact Info) Description 05/31/2025 8:50 AM EST Office Visit [facility] Dermatology [address] [place] [address] [place] [address] [place] [phone] 06/02/2025 9:10 AM EST Office Visit [facility] Medicine Specialties [address] [place] [address] 06/08/2025 4:30 PM EST Office Visit [facility] [address] [place] [phone] Lily Eaton PA [address] [facility] [address] [place] [phone] 06/20/2025 3:30 PM EST Appointment [facility] 800 [facility] Room [address] [address] 07/18/2025 3:30 PM EST Appointment [facility] [address] [facility] Room [address] [address] 08/15/2025 3:30 PM EDT Appointment [facility] [address] [facility] Room [address] [address] 09/12/2025 3:30 PM EDT Appointment [facility] [address] [facility] Room [address] [address] 10/10/2025 3:30 PM EDT Appointment [facility] [address] [place] [address] documented as of this encounter Visit Diagnoses Diagnosis Systemic lupus erythematosus with organ system involvement (CMS/HCC) documented in this encounter Additional Health Concerns Assessment Noted Time A fall risk assessment has been complete d for the patient 03/01/2025 11:49 AM EDT A Body Mass Index follow-up plan has been documented for the patient 05/10/2025 5:36 PM EST documented as of this encounter Care Teams Burrer Marker Axle Relationship Specialty Start Date End Date Randy Leigh, TITI [address] [place] [address] PCP - General 03/10/25 documented as of this encounter
--- OUTSIDE RECORDS SUMMARY | 2025-05-24 10:22 | XMS_ITS | Encounter Summary ---
Author Organization [facility] Address [address] [place] [address] Care Team Providers Care Continuous Miner Name Role Phone Oseasliza Lisamaria isabelmonty Goetz APRN Primary Care Provider + Encounter Details Date Type Department Care Team (Late st Contact Info) Description 05/11/2025 Results Follow-Up [facility] [address] [place] [address] Lily Eaton PA [address] [facility] [address] [place] [address] Social History Tobacco Use Types Packs/Day Years [...] 8:50 AM EST Office Visit [facility] Dermatology [address] [place] [phone] Don Hung MD [address] [place] [address] 06/02/2025 9:10 AM EST Office Visit [facility] [address] [place] [phone] 06/08/2025 4:30 PM EST Office Visit [facility] [address] [facility] [place] [address] Lily Eaton PA [address] [facility] [address] [place] [address] 06/20/2025 3:30 PM EST Appointment [facility] 800 [facility] Room [address] [phone] 07/18/2025 3:30 PM EST Appointment [facility] 800 [facility] Room [address] [address] 08/15/2025 3:30 PM EDT Appointment [facility] [address] [facility] Room [address] [address] 09/12/2025 3:30 PM EDT Appointment [facility] [address] [facility] Room [address] [address] 10/10/2025 3:30 PM EDT Appointment [facility] [address] [facility] Room [address] [address] documented as of this encounter Visit Diagnoses Not on filedocumented in this encounter Additional Health Concerns Assessment Noted Time A fall risk assessment has been complete d for the patient 03/01/2025 11:49 AM EDT A Body Mass Index follow-up plan has been documented for the patient 05/10/2025 5:36 PM EST documented as of this encounter Care Teams Continuous Miner Relationship Specialty Start Date End Date Randy Leigh APRN [address] [place] [address] PCP - General 03/10/25 documented as of this encounter
--- OUTSIDE RECORDS SUMMARY | 2025-05-24 10:22 | XMS_ITS | Encounter Summary ---
Author Organization [facility] Address [address] [place] [address] Care Team Providers Care Media Planner / Buyer Name Role Phone Reese Lisamaria isabelmonty Goetz APRN Primary Care Provider + Encounter Details Date Type Department Care Team (Latest Contact Info) Description 04/10/2025 Travel Social History Tobacco Use Types Packs/Day [...] someone who was sick? No / Unsure 04/10/2025 2:48 PM Karolyn Porter Do you have any of the follo wing new or worsening symptoms? None of these 04/10/2025 2:48 PM Evangelista Porter * Travel Screening Question Answer Date of Assessment Author Have you traveled internatio ha or domestically in the last month? No 04/10/2025 2:48 PM Karolyn Soto documented as of this encounter Mental Status * Communicable Disease Screening Question Answer Entry Date Author Have you been in contact wit h someone who was sick? No / Unsure 04/10/2025 2:48 PM EST Karolyn Mane Do you have any of the follo wing new or worsening symptoms? None of these 04/10/2025 2:48 PM EST Evangelista Mane * Travel Screening Question Answer Entry Date Author Have you traveled internatio ha or domestically in the last month? No 04/10/2025 2:48 PM EST Karolyn Jackson documented in this encounter Plan of Treatment Upcoming Encounters Date Type Department Care Team (Late st Contact Info) Description 05/31/2025 8:50 AM EST Office Visit [facility] Dermatology [address] [place] [address] Dno Hung MD [address] [place] [address] [place] [address] 06/02/2025 9:10 AM EST Office Visit [place] [facility] [address] [place] [address] 06/08/2025 4:30 PM EST Office Visit [facility] [address] [place] [phone] Lily Eaton PA [address] [facility] [address] [place] [address] 06/20/2025 3:30 PM EST Appointment [facility] 800 [facility] Room [address] [address] 07/18/2025 3:30 PM EST Appointment [facility] 800 [facility] Room [address] [address] 08/15/2025 3:30 PM EDT Appointment [facility] 800 [facility] Room [address] [address] 09/12/2025 3:30 PM EDT Appointment [facility] 800 [facility] Room [address] [address] 10/10/2025 3:30 PM EDT Appointment [facility] [address] [place] [address] documented as of this encounter Visit Diagnoses Not on filedocumented in this encounter Additional Health Concerns Assessment Noted Time A fall risk assessment has been complete d for the patient 03/01/2025 11:49 AM EDT A Body Mass Index follow-up plan has been documented for the patient 04/10/2025 3:36 PM EST documented as of this encounter Care Teams Media Planner / Buyer Relationship Specialty Start Date End Date Randy Leigh, DOOR PATCHER [address] [place] [address] PCP - General 03/10/25 documented as of this encounter
--- OUTSIDE RECORDS SUMMARY | 2025-05-24 10:23 | XMS_ITS | Clinical Summary ---
Author Organization [facility] Address [address] [place] [address] Care Team Providers Care Emergency Medical Technician Name Role Phone Randy Leigh TITI Primary [...] Day. 4 Active Sodium Sulfate-Mag Sulfate-KCl (SUTAB) 8996-669-158 MG tablet Take 24 tablets by mouth Take As Directed. 24 tablet 4 Active Additional Information Patient not taking.Reported on 11/23/2024 BinaxGONZALESW COVID-19 Ag Home Test kit TEST DIRECTED TODAY 5 Active Colace 100 MG capsule Take 1 capsule every day by oral route for 30 days. 5 Active vitamin D (ERGOCALCIFEROL) 1.25 MG (27381 UT) capsule capsule TAKE 1 CAPSULE BY [...] reported abnormal Referred by: Profession: Other info: Family History Medical History Relation Name Comments Asthma Father 1997 Ovarian cancer Maternal Aunt Rose 50's Ovarian cancer Maternal Grandmother vIon 70's Lupus Mother 1994 Breast cancer Neg [...] Description 11/29/2025 9:40 AM EDT Office Visit [facility] OBGYN [address] [place] [phone] Ssuan Renteria MD [address] [place] [address] Health Maintenance Due Date Last Done Comments [...] exists ZOSTER VACCINE (1 of 2) 2024 INFLUENZA VACCINE 12/23/2024 02/08/2024, 02/13/2009 Annual Gynecologic Pelvic an d Breast Exam 11/24/2025 11/23/2024 COLONOSCOPY 12/14/2033 12/15/2023, 11/23, 11/23/2023, Additional history exists COLORECTAL CANCER SCREENING 12/14/2033 TDAP/TD VACCINES (3 - Td or Tdap) 02/07/2034 02/08/2024, [...] Health Maintenance Results * Colonoscopy, Scan (12/15/2023) Curry Almonte MD CHART REVIEW TABS Final [...] of concern indicated by the patient. A [place] marker is placed over a visible skin [...] Most Recently Relevant to Health Maintenance Insurance [facility] Care Teams Emergency Medical Technician Relationship Specialty Start Date End Date Randy Leigh APRN [address] [place] [address] PCP - General Nurse Practitioner 08/19/24
[2025-05-24 10:52] LABS: Hematocrit 31.9 % (37.0-47.0); Hemoglobin 10.3 g/dL (12.2-16.2); Immature Granulocytes % 0.3 %; Mean Corpuscular HGB Conc 32.3 g/dL (31.8-35.4); Mean Corpuscular Hemoglobin 26.9 pg (27.0-31.2); Mean Corpuscular Volume 83.3 fl (81-99); Nucleated Red Blood Cells % 0 %; Platelet Count 208 K/mm3 (142-424); Red Blood Count 3.83 M/mm3 (4.20-5.40); Red Cell Distribution Width-SD 40.5 fL; White Blood Count 2.9 K/mm3 (4.8-10.8)
[2025-05-24 11:35] LABS: Free T4 (Free Thyroxine) 1.21 ng/dl (0.78-2.19)
[2025-05-24 12:16] LABS: Albumin Level 3.7 g/dl (3.5-5.0)
[2025-05-24 12:17] LABS: Chloride 96 mmol/L (98-107); Potassium 4.5 mmoL/L (3.5-5.1); Sodium 133 mmol/L (136-145)
[2025-05-24 12:19] LABS: Alanine Aminotransferase 26 U/L (12-78); Anion Gap 11.5 mEq/L (5-15); Aspartate Amino Transferase 42 U/L (14-36); Bilirubin,Unconjugated 0.4 mg/dL (0.0-1.1); Blood Urea Nitrogen 23 mg/dl (7-17); Carbon Dioxide 30 mmol/L (22.0-30.0); Creatinine,Serum 1.40 mg/dl (0.52-1.04); Estimated Glomerular Filt Rate 40 ml/min (>60); GFR (African American) 48 ML/MIN (>60); Total Protein,Serum 7.3 g/dl (6.3-8.2)
[2025-05-24 12:20] LABS: Alkaline Phosphatase 79 U/L (38-126); Bilirubin,Direct 0.3 mg/dl (0.0-0.4); Bilirubin,Indirect 0.4 mg/dL (0.0-0.9); Bilirubin,Total 0.7 mg/dl (0.2-1.3); Calcium 9.5 mg/dl (8.4-10.2); Cholesterol 106 mg/dl (140-200); Glucose 89 mg/dl (74-100); HDL Cholesterol 40 mg/dl (40-60); Magnesium 2.0 mg/dl (1.6-2.3); Triglycerides 44 mg/dl (30-150)
[2025-05-24 12:50] LABS: Thyroid Stimulating Hormone 2.24 uIU/mL (0.465-4.68)
== END 2025-05-24 23:59 | disposition home or self-care (01) ==
LOC: LAB 10:19
PROVIDERS: PCP Nurse Practitioner Family; Visit Provider Nurse Practitioner Family
DX: J98.4 Other disorders of lung (principal); I31.4 Cardiac tamponade; E11.9 Type 2 diabetes mellitus without complications; Z86.79 Personal history of other diseases of the circulatory system; M32.9 Systemic lupus erythematosus, unspecified
CPT/HCPCS: 36415; 80048; 80061; 80076; 83735; 84439; 84443; 85025